=== PATIENT | male | born 1950 | race Caucasian/White ===

== ENCOUNTER 2020-03-24 16:09 | Inpatient (IN) | payer MEDICARE, OTHER ==
[~2020-03-24] VITALS: Ht 193 cm; Wt 72.4 kg
--- NOTE | 2020-03-24 16:23 | ED GI ---
General Stated Complaint: GI BLEED Source of Information: Patient, EMS Exam Limitations: No Limitations History of Present Illness Date Seen by Provider: Mar 24, 2020 Time Seen by Provider: 16:22 Initial Comments 69-year-old male presents with concerns for GI bleed. Patient has "been throwing up like a champ" since around 2 AM this morning. Patient was seen in from the longterm due to a black emesis. Patient himself denies any blood. Patient denies any black tarry stool. Patient has some diffuse mild abdominal pain. No reports of fevers chills cough, shortness of breath or other systemic complaints Allergies and Home Medications Allergies Coded Allergies: No Known Drug Allergies (Unverified , 03/24/20) Home Medications Amiodarone HCl 200 Mg Tablet, 200 MG PO DAILY, (Reported) Amlodipine Besylate 10 Mg Tablet, 10 MG PO DAILY, (Reported) Ascorbic Acid 500 Mg Tablet, 500 MG PO DAILY, (Reported) Aspirin 81 Mg Tab.chew, 81 MG PO BID, (Reported) Bisacodyl 10 Mg Supp.rect, 10 MG RC Q12H PRN for CONSTIPATION-1ST LINE, ( Reported) Diltiazem HCl 180 Mg Capsule.er, 180 MG PO DAILY, (Reported) Docusate Sodium 100 Mg Capsule, 100 MG PO BID, (Reported) Ferrous Sulfate 325 Mg Tablet, 325 MG PO BID, (Reported) Hydrocortisone Acetate 25 Mg Supp.rect, 25 MG RC Q12H PRN for HEMMORRHOID DISCOMFORT, (Reported) Insulin Aspart 100 Unit/1 Ml Susp, UNIT SQ ACHS, (Reported) 0-60= 0u initiate hypoglycemia protocol and notify PCP; 61-150= 0u 151-200= 4u 201-250= 6u 251-300= 8u 301-350 = 10u 351-400= 12u 401+ = call PCP Insulin Detemir 100 Unit/1 Ml Insuln.pen, 5 UNIT SQ BID, (Reported) L. Acidophilus/Bulgaricus 1 Each Tab.chew, 1 EACH PO BID, (Reported) Metoprolol Tartrate 50 Mg Tablet, 50 MG PO DAILY, (Reported) Mirtazapine 15 Mg Tablet, 15 MG PO HS, (Reported) Multivitamin 1 Each Tablet, 1 EACH PO DAILY, (Reported) Pantoprazole Sodium 40 Mg Tablet.dr, 40 MG PO DAILY, (Reported) Polyethylene Glycol 3350 17 Gm Powd.pack, 17 GM PO BID, (Reported) Polyethylene Glycol 3350 17 Gm Powd.pack, 17 GM PO DAILY PRN for CONSTIPATION- 1ST LINE, (Reported) Rivaroxaban 20 Mg Tablet, 20 MG PO DAILY, (Reported) Simvastatin 20 Mg Tablet, 20 MG PO HS, (Reported) Solifenacin Succinate 10 Mg Tablet, 10 MG PO HS, (Reported) Spironolactone 50 Mg Tablet, 50 MG PO DAILY, (Reported) Tamsulosin HCl 0.4 Mg Cap, 0.4 MG PO DAILY, (Reported) Tramadol HCl 50 Mg Tablet, 50 MG PO Q4H PRN for PAIN-MODERATE (5-7), (Reported) Venlafaxine HCl 75 Mg Cap.er.24h, 75 MG PO DAILY, (Reported) Zinc Amino Acid Chelate 50 Mg Tablet, 50 MG PO DAILY, (Reported) Patient Home Medication List Home Medication List Reviewed: Yes Review of Systems Review of Systems Constitutional: No chills, No fever EENTM: No Symptoms Reported Respiratory: Denies Cough, Denies Shortness of Air Cardiovascular: No Symptoms Reported Gastrointestinal: Abdominal Pain; Denies Constipated, Denies Diarrhea; Nausea; Denies Rectal Bleeding; Vomiting Genitourinary: No Symptoms Reported Musculoskeletal: no symptoms reported Skin: no symptoms reported Psychiatric/Neurological: No Symptoms Reported Endocrine: No Symptoms Reported Past Njzaria-Iwjvhe-Jithvb Hx Past Med/Social Hx: Reviewed Nursing Past Med/Soc Hx Physical Exam Vital Signs Vital Signs - First Documented 03/24/20 16:10 Temp 36.9 Pulse 71 Resp 18 B/P (MAP) 122/67 (85) Pulse Ox 97 O2 Delivery Room Air Capillary Refill : Height/Weight/BMI Height: '" Weight: lbs. oz. kg; BMI Method: General Appearance: WD/WN, no apparent distress Respiratory: lungs clear, normal breath sounds Cardiovascular: normal peripheral pulses, regular rate, rhythm Gastrointestinal: soft, tenderness (mild diffuse) Neurologic/Psychiatric: alert, normal mood/affect Skin: warm/dry Progress/Results/Core Measures Results/Orders Lab Results Laboratory Tests Test 03/24/20 16:16 Range/Units White Blood Count 10.8 4.3-11.0 10^3/uL Red Blood Count 3.48 L 4.30-5.52 10^6/uL Hemoglobin 10.2 L 13.3-17.7 g/dL Hematocrit 30 L 40-54 % Mean Corpuscular Volume 87 80-99 fL Mean Corpuscular Hemoglobin 29 25-34 pg Mean Corpuscular Hemoglobin Concent 34 32-36 g/dL Red Cell Distribution Width 14.2 10.0-14.5 % Platelet Count 236 130-400 10^3/uL Mean Platelet Volume 9.9 9.0-12.2 fL Immature Granulocyte % (Auto) 1 % Neutrophils (%) (Auto) 78 H 42-75 % Lymphocytes (%) (Auto) 12 12-44 % Monocytes (%) (Auto) 7 0-12 % Eosinophils (%) (Auto) 3 0-10 % Basophils (%) (Auto) 1 0-10 % Neutrophils # (Auto) 8.4 H 1.8-7.8 10^3/uL Lymphocytes # (Auto) 1.2 1.0-4.0 10^3/uL Monocytes # (Auto) 0.7 0.0-1.0 10^3/uL Eosinophils # (Auto) 0.3 0.0-0.3 10^3/uL Basophils # (Auto) 0.1 0.0-0.1 10^3/uL Immature Granulocyte # (Auto) 0.1 0.0-0.1 10^3/uL Sodium Level 137 135-145 MMOL/L Potassium Level 5.1 H 3.6-5.0 MMOL/L Chloride Level 100 98-107 MMOL/L Carbon Dioxide Level 28 21-32 MMOL/L Anion Gap 9 5-14 MMOL/L Blood Urea Nitrogen 47 H 7-18 MG/DL Creatinine 2.32 H 0.60-1.30 MG/DL Estimat Glomerular Filtration Rate 28 BUN/Creatinine Ratio 20 Glucose Level 134 H 70-105 MG/DL Calcium Level 9.2 8.5-10.1 MG/DL Corrected Calcium 9.6 8.5-10.1 MG/DL Total Bilirubin 0.3 0.1-1.0 MG/DL Aspartate Amino Transf (AST/SGOT) 13 5-34 U/L Alanine Aminotransferase (ALT/SGPT) 15 0-55 U/L Alkaline Phosphatase 121 40-136 U/L C-Reactive Protein High Sensitivity 0.88 H 0.00-0.50 MG/DL Total Protein 6.8 6.4-8.2 GM/DL Albumin 3.5 3.2-4.5 GM/DL Lipase 23 8-78 U/L My Orders Orders - MICHAEL BANEGAS DO Cbc With Automated Diff (03/24/20 16:23) Comprehensive Metabolic Panel (03/24/20 16:23) Hs C Reactive Protein (03/24/20 16:23) Lipase (03/24/20 16:23) Acute Abd Series (03/24/20 16:23) Ondansetron Injection (Zofran Injectio (03/24/20 16:30) Ed Iv/Invasive Line Start (03/24/20 16:23) Pantoprazole Injection (Protonix Injecti (03/24/20 16:30) Ed Iv/Invasive Line Start (03/24/20 17:05) Ns Iv 1000 Ml (Sodium Chloride 0.9%) (03/24/20 17:05) Medications Given in ED Vital Signs/I&O 03/24/20 16:10 Temp 36.9 Pulse 71 Resp 18 B/P (MAP) 122/67 (85) Pulse Ox 97 O2 Delivery Room Air 03/25/20 00:00 Intake Total 1000 ml Balance 1000 ml Progress Progress Note : Progress Note Patient did have an episode of vomiting while in the ER that was consistent with a coffee-ground emesis that was positive for blood. Discussed with Dr. Luna and Dr. Henderson. We will place patient in observation, hold his blood thinner, give him Protonix twice a day along with the stool regiment. Patient will be admitted in stable condition. Departure Communication (Admissions) Time/Spoke to Admitting Phy: 18:00 hold blood thinners, ppi bid, iv fluids Time/Spoke to Consulting Phy: 18:00 Impression Primary Impression: Constipation Qualified Codes: K59.00 - Constipation, unspecified Additional Impression: Hematemesis Qualified Codes: K92.0 - Hematemesis Disposition: ADMITTED INPATIENT Condition: Stable Admissions Decision to Admit Reason: Admit from ER (General) Decision to Admit/Date: Mar 24, 2020 Time/Decision to Admit Time: 18:00 BASSAMYOLIEAmi Ojeda DO Mar 24, 2020 16:22
[2020-03-24] MEDS ORDERED: ONDANSETRON 4 MG/2 ML (SDV) Z0FRAN IVP ONE (16:30)
[2020-03-24] MEDS ORDERED: PANTOPRAZOLE 40 MG (PROTONIX) VIAL IV ONE (16:30)
[2020-03-24 16:35] LABS: BASOPHILS # (AUTO) 0.1 10^3/uL (0.0-0.1); BASOPHILS % (AUTO) 1 % (0-10); EOSINOPHILS # (AUTO) 0.3 10^3/uL (0.0-0.3); EOSINOPHILS % (AUTO) 3 % (0-10); HEMATOCRIT 30 % (40-54); HEMOGLOBIN 10.2 g/dL (13.3-17.7); LYMPHOCYTES # (AUTO) 1.2 10^3/uL (1.0-4.0); LYMPHOCYTES % (AUTO) 12 % (12-44); MEAN CORPUSCULAR HEMOGLOBIN 29 pg (25-34); MEAN CORPUSCULAR HGB CONC 34 g/dL (32-36); MEAN CORPUSCULAR VOLUME 87 fL (80-99); MEAN PLATELET VOLUME 9.9 fL (9.0-12.2); MONOCYTES # (AUTO) 0.7 10^3/uL (0.0-1.0); MONOCYTES % (AUTO) 7 % (0-12); NEUTROPHILS # (AUTO) 8.4 10^3/uL (1.8-7.8); NEUTROPHILS % (AUTO) 78 % (42-75); PLATELET COUNT 236 10^3/uL (130-400); WHITE BLOOD COUNT 10.8 10^3/uL (4.3-11.0)
[2020-03-24 16:36] LABS: ALBUMIN 3.5 GM/DL (3.2-4.5); POTASSIUM 5.1 MMOL/L (3.6-5.0)
[2020-03-24 16:37] LABS: CALCIUM 9.2 MG/DL (8.5-10.1)
[2020-03-24 16:39] LABS: TOTAL PROTEIN 6.8 GM/DL (6.4-8.2)
[2020-03-24 16:40] LABS: BILIRUBIN,TOTAL 0.3 MG/DL (0.1-1.0)
[2020-03-24 16:42] LABS: CREATININE SERUM 2.32 MG/DL (0.60-1.30)
[2020-03-24] MEDS ORDERED: NS IV 1000 ML 1,000 ML IV SCH (17:05)
--- NOTE | 2020-03-24 17:15 | Diagnostic Imaging Report ---
INDICATION: Abdominal pain. COMPARISON: None available. TECHNIQUE: Three radiographs of the abdomen and chest dated March 24, 2020. FINDINGS: The cardiac silhouette is within normal limits in size. No significant pulmonary vascular congestion. The lungs are clear. No pleural effusion. No pneumothorax. No acute osseous abnormality within the chest. Significant amount of stool is identified throughout the colon, including extending into the rectal vault. No dilated loops of small bowel. No differential air-fluid levels. No free air. No acute osseous abnormality. IMPRESSION: Significant amount of stool throughout the colon extending into the rectal vault which may relate to constipation. No acute cardiopulmonary abnormality. Dictated by: Dictated on workstation # [id number]
--- NOTE | 2020-03-24 19:37 | NUR ---
FLORENCIO WILDE admitted to room 412-1, with an admitting diagnosis of constipation and hematemesis, on 03/24/20 from ED via cart, accompanied by staff.FLORENCIO WILDE introduced to surroundings, call light, bed controls, phone, TV, temperature control, lights, meal times, smoking policy, visitor policy, side rail policy, bathrooms and showers. Patient Rights given to patient in the handbook. FLORENCIO WILDE verbalizes understanding that [facility] is not responsible for the loss or damage to any personal effects or valuables that are kept in the patients possession during their hospitalization. The following Patient Care Plans were discussed with the patient. Patient verbalizes understanding, denies any questions or concerns at this time. FLORENCIO WILDE verbalizes understanding of Interdisciplinary Patient Education. Patient and/or family were informed about the Rapid Response Team and its purpose.
[2020-03-24] MEDS ORDERED: CATHETER FLUSH 10 ML SYR IV PRN (20:00)
[2020-03-24] MEDS ORDERED: MAGNESIUM CITRATE 300 ML BTL PO NR (20:00)
[2020-03-24] MEDS: NS IV 1000 ML 1,000 ML IV SCH (20:34)
[2020-03-24 20:37] VITALS: BP 131/75
--- NOTE | 2020-03-24 21:21 | NUR ---
2051-pt requested that this rn contact his cristina gilbert to inform her what the plan of care is, admitting diagnosis, & set up password this rn called who provided this rn with pt's name & prior to this rn providing information password:[email or web address] was set up, this rn provided admitting diagnosis, plan of care, & discussed visiting hours. she denies any other questions or concerns at this time.
[2020-03-24] MEDS ORDERED: SOLI10TA2 PO (22:20)
[2020-03-24] MEDS ORDERED: INSU100V16 SQ (22:20)
[2020-03-24] MEDS ORDERED: TMSL.4C PO (22:20)
[2020-03-24] MEDS ORDERED: MIRT15TA6 PO (22:20)
[2020-03-24] MEDS ORDERED: AMLO10TA7 PO (22:20)
[2020-03-24] MEDS ORDERED: SIMV20TA26 PO (22:20)
[2020-03-24] MEDS ORDERED: INSU100I29 SQ (22:20)
[2020-03-24] MEDS ORDERED: TRM50T PO (22:20)
[2020-03-24] MEDS ORDERED: BISA10SU8 RC (22:20)
[2020-03-24] MEDS ORDERED: HYDR25SU28 RC (22:20)
[2020-03-24] MEDS ORDERED: ACID1TAB5 PO (22:20)
[2020-03-24] MEDS ORDERED: PANT40TA52 PO (22:20)
[2020-03-24] MEDS ORDERED: AMIO200T4 PO (22:20)
[2020-03-24] MEDS ORDERED: FERR325T18 PO (22:20)
[2020-03-24] MEDS ORDERED: ASCO500T7 PO (22:20)
[2020-03-24] MEDS ORDERED: ZINC50TA51 PO (22:20)
[2020-03-24] MEDS ORDERED: SPIR50TA4 PO (22:20)
[2020-03-24] MEDS ORDERED: DILT180C82 PO (22:20)
[2020-03-24] MEDS ORDERED: ASPI-999 PO (22:20)
[2020-03-24] MEDS ORDERED: DOCU100C37 PO (22:20)
[2020-03-24] MEDS ORDERED: POLY17PO6 PO ×2 (22:20)
[2020-03-24] MEDS ORDERED: VENL75CA93 PO (22:20)
[2020-03-24] MEDS ORDERED: RIVA20TA PO (22:20)
[2020-03-24] MEDS ORDERED: MULT-1136 PO (22:20)
[2020-03-24] MEDS ORDERED: METO50TA15 PO (22:20)
[2020-03-24] MEDS: PANTOPRAZOLE 40 MG (PROTONIX) VIAL IV SCH (22:58)
[2020-03-25 00:16] VITALS: BP 104/57
[2020-03-25] MEDS: NS IV 1000 ML 1,000 ML IV SCH ×4 (03:16→23:32)
[2020-03-25 03:59] VITALS: BP 113/57
[2020-03-25 06:24] LABS: BASOPHILS % (AUTO) 0 % (0-10); EOSINOPHILS # (AUTO) 0.3 10^3/uL (0.0-0.3); EOSINOPHILS % (AUTO) 3 % (0-10); HEMATOCRIT 25 % (40-54); HEMOGLOBIN 8.5 g/dL (13.3-17.7); LYMPHOCYTES # (AUTO) 1.5 10^3/uL (1.0-4.0); LYMPHOCYTES % (AUTO) 16 % (12-44); MEAN CORPUSCULAR HEMOGLOBIN 30 pg (25-34); MEAN CORPUSCULAR HGB CONC 34 g/dL (32-36); MEAN CORPUSCULAR VOLUME 87 fL (80-99); MEAN PLATELET VOLUME 10.1 fL (9.0-12.2); MONOCYTES # (AUTO) 0.5 10^3/uL (0.0-1.0); MONOCYTES % (AUTO) 6 % (0-12); NEUTROPHILS # (AUTO) 6.8 10^3/uL (1.8-7.8); NEUTROPHILS % (AUTO) 75 % (42-75); PLATELET COUNT 200 10^3/uL (130-400); WHITE BLOOD COUNT 9.1 10^3/uL (4.3-11.0)
[2020-03-25 06:25] LABS: POTASSIUM 4.9 MMOL/L (3.6-5.0)
[2020-03-25 06:27] LABS: CALCIUM 8.4 MG/DL (8.5-10.1)
[2020-03-25 06:28] LABS: TOTAL PROTEIN 5.8 GM/DL (6.4-8.2)
[2020-03-25 06:30] LABS: BILIRUBIN,TOTAL 0.2 MG/DL (0.1-1.0)
[2020-03-25 06:31] LABS: CREATININE SERUM 1.82 MG/DL (0.60-1.30)
[2020-03-25 08:00] VITALS: BP 124/67
[2020-03-25] MEDS: PANTOPRAZOLE 40 MG (PROTONIX) VIAL IV SCH ×2 (08:50→20:22)
--- NOTE | 2020-03-25 10:56 | NUR ---
CM/SS visited with patient for discharge planning. The patient was pleasant and willing to discuss discharge planning. He reports that he is feeling better today and does not have any vomiting. Plan: Patient will return to [facility] at time of discharge. Home: The patient reports that he lives at home with his Renee. This CM/SS believes patient may have confusion. VAIBHAV Aguila verified that patient has been transferred here from [facility]. The patient states that prior to this hospital stay, he was using a wheelchair to get around. Patient has 3 stairs leading up to house. He states he does not have a ramp but was able to use rails to help assist him up the stairs. His home is a 2 level home but the second floor is dedicated to his 's crafts. Equipment: Patient has a wheelchair and shower chair. Denies any additional equipment at this time. Patient states he has had to use a wheelchair since his 2nd stroke. Patient has had 3 strokes. Home Health/Caregivers: None. Patient does not have a paid caregiver at home but states his was helping him with his daily living activities. CM/SS will continue to follow for discharge planning.
[2020-03-25] MEDS ORDERED: ZINC50TA58 PO (11:11)
[2020-03-25] MEDS ORDERED: MULT-1112 PO (11:11)
[2020-03-25] MEDS ORDERED: ACID1TAB5 PO (11:11)
--- NOTE | 2020-03-25 11:49 | NUR ---
PALLIATIVE CARE RN went in to talk with patient. He is pleasant and we were able to have a conversation. He reports feeling better and having no more vomiting as well as having had a great bowel movement. During conversation with him I took the opportunity to ask him about his RBKA. It was not mentioned in ED physician charting nor in nursing assessment on admission that I could find. Patient states that he had surgery in December. I have asked for the RN Jose to assess wound and make sure it is healing well as the bandage appeared to have drainage on it. She has since reported that the incision is mostly healed without drainage and thinks the yellow on the dressing was urine. Patient has Hx. of CVA, and DM. He comes to us from [facility] and previous to that was at [facility]. Unsure where he was previous to that or for his surgery.
[2020-03-25 12:00] VITALS: BP 143/73
--- NOTE | 2020-03-25 12:01 | NUR ---
MED REC WAS ENTERED USING THE MEDICATION REVIEW REPORT FROM [employer]
--- NOTE | 2020-03-25 13:44 | NUR ---
"RD ASSESSMENT PMHx: afib; GERD; amputation; DM PT INTERACTION: Pt was awake and pleasant during nutrition assessment. Pt states current appetite is good. Note pt is currently NPO, per chart review. Pt states following a regular diet at home, and has no issues with chewing/swallowing food. Pt states some recent issues with nausea, vomiting, constipation, and diarrhea. Note recent episode of emesis per chart review. Note last BM was 03/25, and pt not currently on bowel regimen per chart review. Pt states recent wt loss d/t recent amputation. Note unable to determine recent wt hx, per chart review. Pt states trying keep good control of DM at this time. Note unable to determine recent HbA1c, per chart review. ABNORMAL NUTRITION-RELATED LAB VALUES LOW: Ca 8.4; Pro 5.8; alb 3.0 HIGH: BUN 42; cr 1.82; glu 117 Est. kcal needs: 2175 kcal | 30 kcal/kg Est. Pro needs: 72 g Pro | 1.0 g Pro/kg PES STATEMENT: Inadequate oral intake (NI-2.1) related to nausea | vomiting | constipation | diarrhea as evidenced by pt interview INTERVENTION: Note pt currently NPO. Would recommend diet advancement to consistent CHO diet, as medically able and as tolerated. Did not offer diet education on DM management at this time. Will attempt to offer prior to discharge. Will continue to follow and reassess as pt needs, intake, and status change. Melissa Nova, MS RD LD"
--- NOTE | 2020-03-25 14:31 | History & Physical-Hospitalist ---
History of Present Illness HPI/Chief Complaint Rangel Maldonado is a 69-year-old male with past medical history of hypertension, diabetes, hyperlipidemia, GERD, atrial fibrillation, BPH, CKD, who presented with coffee-ground emesis. 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 He reports that he had nausea and vomiting with dark emesis. He denies feeling lightheaded or dizzy. He denies any fevers or chills. He denies any shortness of breath or cough. He denies any chest pain. He denies any abdominal pain. He denies any diarrhea. His any melena or hematochezia. Source: patient Exam Limitations: no limitations Date Seen 03/25/20 Time Seen by a Provider: 11:10 Attending Physician Enzo Haskins MD PCP Alex Etienne DO Referring Physician Date of Admission Mar 24, 2020 at 18:26 Home Medications & Allergies Home Medications Reviewed patient Home Medication Reconciliation performed by pharmacy medication reconciliations geoscience laboratory technician and/or nursing. Patients Allergies have been reviewed. Allergies Allergies Coded Allergies No Known Drug Allergies (Unverified03/24/20) Past Jhjdohl-Lbobhk-Kutowk Hx Past Med/Social Hx: Reviewed Nursing Past Med/Soc Hx Patient Social History Alcohol Use: Denies Use Recreational Drug Use: No Smoking Status: Never a Smoker 2nd Hand Smoke Exposure: No Recent Foreign Travel: No Contact w/other who traveled: No Recent Hopitalizations: No Recent Infectious Disease Expo: No Seasonal Allergies Seasonal Allergies: No Past Medical History Surgeries: Adenoidectomy, Tonsillectomy, Vasectomy Cardiac: Atrial Fibrillation Gastrointestinal: Gastroesophageal Reflux Musculoskeletal: Amputee Endocrine: Diabetes, Insulin dep Are Your Blood Sugars Over 250: No Psychosocial: Anxiety History of Blood Disorders: Yes (Anemia ) Family History Alzheimer's disease 19 FATHER, Onset:60 years & older Dementia 19 FATHER, Onset:60 years & older Diabetes mellitus 19 FATHER, Onset:50's - 60 Review of Systems Constitutional: no symptoms reported EENTM: no symptoms reported Respiratory: no symptoms reported Cardiovascular: no symptoms reported Gastrointestinal: hematemesis, nausea, vomiting Genitourinary: no symptoms reported Musculoskeletal: no symptoms reported Skin: no symptoms reported Psychiatric/Neurological: No Symptoms Reported Physical Exam Physical Exam Vital Signs Vital Signs - First Documented 9/29/20 16:10 Temp 36.9 Pulse 71 Resp 18 B/P (MAP) 122/67 (85) Pulse Ox 97 O2 Delivery Room Air Capillary Refill : Less Than 3 Seconds Height, Weight, BMI Height: '" Weight: lbs. oz. kg; 19.43 BMI Method: General Appearance: No Apparent Distress, WD/WN HEENT: PERRL/EOMI, Pharynx Normal Neck: Normal Inspection, Supple Respiratory: Lungs Clear, Normal Breath Sounds, No Respiratory Distress Cardiovascular: Regular Rate, Rhythm, No Edema, No Murmur Gastrointestinal: Normal Bowel Sounds, Non Tender, Soft Extremity: Non Tender, No Pedal Edema, Other (right BKA with bandage in place) Neurologic/Psychiatric: Alert, No Motor/Sensory Deficits, Normal Mood/Affect, Disoriented Skin: Normal Color, Warm/Dry Lymphatic: No Adenopathy Results Results/Procedures Labs Laboratory Tests 03/24/20 16:16 03/25/20 05:23 Patient resulted labs reviewed. Imaging: Reviewed Imaging Report Assessment/Plan Admission Diagnosis upper GI bleeding Admission Status: Inpatient Order (span 2 midnights) Reason for Inpatient Admission: GI bleed requiring IV medications and possible surgical intervention Assessment and Plan Upper GI bleeding Hematemesis Chronic anticoagulation no hematemesis since arrival chronically on Xarelto, held Hemoglobin dropped from 10.2 on arrival to 8.5 this morning started on IV fluids IV PPI twice a day Gen. surgery consulted, appreciate assistance Clear liquid diet today, nothing by mouth after midnight for possible procedure Repeat hemoglobin tomorrow morning or sooner with ongoing bleeding GWENDOLYN on CKD unknown baseline creatinine 2.32 on arrival, down to 1.82 this morning Continue IV fluids T2DM Recent BKA hold home meds sliding scale insulin consult wound care consult PT/OT HTN HLD GERD BPH resume home meds when able Diagnosis/Problems Diagnosis/Problems (1) Hematemesis Status: Acute Qualifiers: Nausea presence: with nausea Qualified Codes: K92.0 - Hematemesis (2) Upper GI bleeding Status: Acute (3) Chronic anticoagulation Status: Chronic (4) Acute kidney injury superimposed on chronic kidney disease Status: Acute (5) HTN (hypertension) Status: Chronic (6) T2DM (type 2 diabetes mellitus) Status: Chronic (7) HLD (hyperlipidemia) Status: Chronic (8) GERD (gastroesophageal reflux disease) Status: Chronic (9) Afib Status: Chronic (10) BPH (benign prostatic hyperplasia) Status: Chronic Clinical Quality Measures DVT/VTE Risk/Contraindication: Risk Factor Score Per Nursin RFS Level Per Nursing on Admit: 4+=Very High Other: hold blood thinners ENZO HASKINS MD Mar 25, 2020 14:31
--- NOTE | 2020-03-25 15:21 | Physical Therapy Evaluation ---
PT Evaluation-General Medical Diagnosis Admission Date Mar 24, 2020 at 18:26 Medical Diagnosis: GI bleed Onset Date: Mar 24, 2020 Therapy Diagnosis Therapy Diagnosis: Impaired mobility and strength Precautions Precautions/Isolations: Fall Prevention, Standard Precautions Weight Bear Status Right Lower Extremity: Right Non Weight Bearing (BKA) Left Lower Extremity: Left Full Weight Bearing Referral Physician: Cheryl Reason for Referral: Evaluation/Treatment Medical History Additional Medical History Past Medical History Surgeries: Adenoidectomy, Tonsillectomy, Vasectomy Cardiac: Atrial Fibrillation Gastrointestinal: Gastroesophageal Reflux Musculoskeletal: Amputee Endocrine: Diabetes, Insulin dep Are Your Blood Sugars Over 250: No Psychosocial: Anxiety History of Blood Disorders: Yes (Anemia ) Reviewed History: Yes Social History Home: Multilevel Current Living Status: Spouse Entry Into Home: Stairs Without Railing PT Steps Into Home: 3 PT Steps Inside Home: 12 Pt does not need access to upstairs. Pt reports a railing will be installed on the steps into his house, and a possible ramp. Prior Prior Level of Function SCALE: Activities may be completed with or without assistive devices. 7-Wnnmhfvqxf-mojpyut completes the activity by him/herself with no assistance from a helper. 5-Set-up or Clean-up Assistance-helper sets up or cleans up; patient completes activity. Gut[place]berg assists only prior to or following the activity. 4-Supervision or Touching Assistance-helper provides verbal cues and/or touching/steadying and/or contact guard assistance as patient completes activity. Assistance may be provided throughout the activity or intermittently. 3-Partial/Moderate Assistance-helper does LESS THAN HALF the effort. Guttenberg lifts, holds or supports trunk or limbs, but provides less than half the effort. 2-Substantial/Maximal Assistance-helper does MORE THAN HALF the effort. Guttenberg lifts or holds trunk or limbs and provides more than half the effort. 5-Kyhnstjia-uodfdf does ALL the effort. Patient does none of the effort to complete the activity. Or, the assistance of 2 or more helpers is required for the patient to complete the activity. If activity was not attempted, code reason: 7-Patient Refused. 9-Not Applicable-not attempted and the patient did not perform the activity before the current illness, exacerbation or injury. 10-Not Attempted due to Environmental Limitations-(lack of equipment, weather restraints, etc.). 88-Not Attempted due to Medical Conditions or Safety Concerns. Bed Mobility: 6 Transfers (B,C,W/C): 4 Gait: 4 (before BKA) Stairs: 4 (before BKA) Indoor Mobility (Ambulation): Needed Some Help Stairs: Needed Some Help Prior Devices Use: Other-see list below (Cane) PT Evaluation-Current Subjective Pt presents laying supine in bed. Pt agrees to PT. No complaints of pain. Pt/Family Goals Return to home with . Objective Patient Orientation: Person, Place, Time, Eyes Open, Situation Attachments: IV ROM/Strength ROM Lower Extremities WFL Strength Lower Extremities R Hip Flex: 4/5 L Hip Flex: 4+/5 R Knee flex/ext 4+/5 L Knee flex/ext 5/5 Sensory Hearing: Functional Sensation Right Lower Extremit: Intact Sensation Left Lower Extremity: Impaired Sensation Lower Extremities RLE Sensation intact to light touch through residual limb LLE Sensation intact to light touch L2-S2 but sensation is dull L4-S1 Transfers Roll Left to Right (QC): 6 Lying to Sitting/Side of Bed(Q: 6 Sit to Stand (QC): 2 Chair/Csp-cv-Qtdzq Xfer(QC): 2 Pt initiated qxl-up-izwxe but was not able to generate enough momentum to stand on one leg. Pt received assistance from 2 therapists to [id number] to stabilize pt upright and guide bottom into chair.. Gait Does the Patient Walk?: No and Walking Goal NOT indicated Balance Standing Static: Poor Standing Dynamic: Fair Assessment/Needs Pt demonstrated independence with bed mobility. Pt is not able to ambulate as he is too weak to lift LLE off ground with UE walker support; pt required max assist to stand-pivot transfer to chair with walker. Pt has positive attitude on his condition and healing process. Rehab Potential: Fair PT Coronary Clinical Specialist Goals Coronary Clinical Specialist Goals PT Long-Term Goals Time Frame: Apr 01, 2020 Roll Left & Right (QC): 6 Sit to Lying (QC): 6 Lying-Sitting on Side/Bed(QC): 6 Sit to Stand (QC): 4 Chair/Ogn-cm-Douvy Xfer(QC): 4 Does the Patient Walk: No and Walking Goal NOT indicated Does the Pt use WC or Scooter?: Yes Wheel 50 feet with 2 turns (QC: 4 Type: Manual Wheel 150 feet: 4 Type: Manual PT Plan Problem List Problem List: Activity Tolerance, Functional Strength, Safety, Balance, Trans edna, Bed Mobility, ROM Treatment/Plan Treatment Plan: Continue Plan of Care Treatment Plan: Bed Mobility, Education, Functional Activity Khang, Functional Strength, Safety, Therapeutic Exercise, Transfers Treatment Duration: Apr 01, 2020 Frequency: 6 times per week Estimated Hrs Per Day: .25 hour per day Patient and/or Family Agrees t: Yes Safety Risks/Education Patient Education: Transfer Techniques, Correct Positioning, Safety Issues Teaching Recipient: Patient Teaching Methods: Demonstration, Discussion Response to Teaching: Reinforcement Needed Discharge Recommendations Plan Pt will work on transfers, therapeutic exercises, balance, and functional activities. Therapy Discharge Recommendati: Other, See Comments (NH) Time/GCodes Time In: 1450 Time Out: 1312 Total Billed Treatment Time: 22 Total Billed Treatment 1 visit MICHELLE Valdovinos' DIMITRI QUESADA PT Mar 25, 2020 15:21
--- NOTE | 2020-03-25 15:36 | Occupational Therapy Eval ---
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 0-Fhdsppfwiv-upmkloj completes the activity by him/herself with no assistance from a helper. 5-Set-up or Clean-up Assistance-helper sets up or cleans up; patient completes activity. Wake assists only prior to or following the activity. 4-Supervision or Touching Assistance-helper provides verbal cues and/or touching/steadying and/or contact guard assistance as patient completes activi ty. Assistance may be provided throughout the activity or intermittently. 3-Partial/Moderate Assistance-helper does LESS THAN HALF the effort. Wake lifts, holds or supports trunk or limbs, but provides less than half the effort. 2-Substantial/Maximal Assistance-helper does MORE THAN HALF the effort. Wake lifts or holds trunk or limbs and provides more than half the effort. 6-Kqegcuxlk-zuncba does ALL the effort. Patient does none of the effort to complete the activity. Or, the assistance of 2 or more helpers is required for the patient to complete the activity. If activity was not attempted, code reason: 7-Patient Refused. 9-Not Applicable-not attempted and the patient did not perform the activity before the current illness, exacerbation or injury. 10-Not Attempted due to Environmental Limitations-(lack of equipment, weather restraints, etc.). 88-Not Attempted due to Medical Conditions or Safety Concerns. ADL PLOF Comments Pt indicates he is currently at [facility], trying to get stronger to return home with his . At [facility], pt lives with his in a multistory house, he stays on the first floor. He indicates he was independent with all ADLs and functional mobility with a cane. Self Care: Independent Functional Cognition: Independent OT Current Status Subjective Pt laying in bed, agreeable to OT. Pt does not verbalize pain rating Mental Status/Objective Patient Orientation: Person, Place, Time, Situation Attachments: IV Current Hand Dominance: Right Upper Extremity ROM RUE shoulder flexion ~90 degrees, LUE shoulder flexion ~130 degrees. Pt able to touch back of head with hands. Upper Extremity Coordination Decreased RUE Upper Extremity Sensation Tingling/numbness R hand Upper Extremity Strength RUE 3-/5, LUE 3+/5 ADL-Treatment Eating (QC): 6 On/Off Footwear (QC): 1 Other Treatments Pt laying in bed, transferred supine to sit EOB with SBA. Pt attempted to don LLE gripper sock, but indicates difficulty. Pt reports having multiple strokes in the past, with weakness/decreased coordination on R side of body. OT assisted pt with donning LLE gripper sock. Pt then stood at FWW, assist x2. Pt attempted to take step but had difficulty, unable to step forward. Pt sat back on bed, recliner brought closer to pt. Pt then stood at FWW, completing SPT with assist x2 towards L side to recliner. Pt participated in UE screen. Post OT tx, pt seated in recliner, call light in reach and all needs met, LEs elevated. Education OT Patient Education: Correct positioning, Energy conservation, Modified ADL techniques, Progress toward Goal/Update tx plan, Purpose of tx/functional activities, Safety issues, Transfer techniques Teaching Recipient: Patient Teaching Methods: Discussion Response to Teaching: Verbalize Understanding OT Senior Care Goals Beautician Apprentice Goals Time Frame: Apr 08, 2020 Eating (QC): 6 Oral Hygiene (QC): 6 Toileting Hygiene (QC): 4 Shower/Bathe Self (QC): 4 Upper Body Dressing (QC): 5 Lower Body Dressing (QC): 4 On/Off Footwear (QC): 4 Additional Goals: 1-Demonstrate ADL Tasks, 2-Verbalize Understanding, 3- ImproveStrength/Khang 1=Demonstrate adherence to instructed precautions during ADL tasks. 2=Patient will verbalize/demonstrate understanding of assistive devices/modifications for ADL. 3=Patient will improve strength/tolerance for activity to enable patient to perform ADL's. OT Education/Plan Problem List/Assessment Assessment: Decreased Activ Tolerance, Decreased UE Strength, Impaired Funct Balance, Impaired I ADL's, Impaired Self-Care Skills, Restricted Funct UE ROM Discharge Recommendations Plan/Recommendations: Continue POC Comment discharge location and equipment recommendations to be determined Treatment Plan/Plan of Care Treatment,Training & Education: Yes Patient would benefit from OT for education, treatment and training to promote independence in ADL's, mobility, safety and/or upper extremity function for ADL's. Plan of Care: ADL Retraining, Functional Mobility, UE Funct Exercise/Act, UE Neuromus Re-Ed/Coord, W/C Management Training Treatment Duration: Apr 08, 2020 Frequency: 5 times per week Estimated Hrs Per Day: .25 hour per day Rehab Potential: Fair Time/GCodes Start Time: 14:53 Stop Time: 13:12 Total Time Billed (hr/min): 19 Billed Treatment Time 1, SANDI COVARRUBIAS OT Mar 25, 2020 15:36
[2020-03-25 15:56] VITALS: BP 148/74
--- NOTE | 2020-03-25 18:10 | Consultation - Surgery ---
ARUNA HOPE MED STUDENT 03/25/201809: History of Present Illness History of Present Illness Patient Consulted On(rosalino/time) 03/24/20 20:00 Date Seen by Provider: Mar 25, 2020 Time Seen by Provider: 06:50 Reason for Visit: hematemesis, constipation History of Present Illness Rangel is a 69 yo M with hx of right below knee amputation 3 weeks ago who presents with constipation and hematemesis. 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 Montero in [place]. He has been in rehab at [facility] since. The patient complains of worsening constipation over the past 3 weeks, stating he had 6 days without a bowel movement prior to admission. He states he had rectal "pressure pain" at that time but denied abdominal pain and denied bloating. The pt denied bloody or dark stools aside from 1 episode of bright red blood in the stool when straining to pass a hard bowel movement 2 weeks ago. He reports nausea and vomiting beginning at 2 am on 03/24. Abdominal series in the ER showed a large amount of stool in the colon, and the pt had coffee-ground emesis in the ER. The patient states he has passed 2 non-bloody brown bowel movements since being hospitalized and on laxatives. He denies fever, chills, current abdominal pain, rectal pain, bloating, nausea, CP, SOB. Per RN no vomiting overnight. Allergies and Home Medications Allergies Coded Allergies: No Known Drug Allergies (Unverified , 03/24/20) Home Medications Amiodarone HCl 200 Mg Tablet, 200 MG PO DAILY, (Reported) HOLD MEDICATION IS BP <100/60 OR PULSE <60 Amlodipine Besylate 10 Mg Tablet, 10 MG PO DAILY, (Reported) HOLD MEDICATION IS BP <100/60 OR PULSE <60 Ascorbic Acid 500 Mg Tablet, 500 MG PO DAILY, (Reported) Aspirin 81 Mg Tab.chew, 81 MG PO BID, (Reported) Bisacodyl 10 Mg Supp.rect, 10 MG RC Q12H PRN for CONSTIPATION-4TH LINE, (Reported) Diltiazem HCl 180 Mg Capsule.er, 180 MG PO DAILY, (Reported) Docusate Sodium 100 Mg Capsule, 100 MG PO BID, (Reported) Ferrous Sulfate 325 Mg Tablet, 325 MG PO BID, (Reported) Hydrocortisone Acetate 25 Mg Supp.rect, 25 MG RC Q12H PRN for HEMMORRHOID DISCOMFORT, (Reported) Insulin Aspart 100 Unit/1 Ml Susp, UNIT SQ ACHS, (Reported) 0-60= 0u initiate hypoglycemia protocol and notify PCP; 61-150= 0u 151-200= 4u 201-250= 6u 251-300= 8u 301-350 = 10u 351-400= 12u 401+ = call PCP Insulin Detemir 100 Unit/1 Ml Insuln.pen, 5 UNIT SQ BID, (Reported) L. Acidophilus/Bulgaricus 1 Each Tab.chew, 1 EACH PO BID, (Reported) Metoprolol Tartrate 50 Mg Tablet, 50 MG PO DAILY, (Reported) HOLD MEDICATION IS BP <100/60 OR PULSE <60 Mirtazapine 15 Mg Tablet, 15 MG PO HS, (Reported) Multivit-Min/Iron/Folic/Vit K1 1 Each Tab.chew, 1 EACH PO DAILY, (Reported) Pantoprazole Sodium 40 Mg Tablet.dr, 40 MG PO DAILY, (Reported) Polyethylene Glycol 3350 17 Gm Powd.pack, 17 GM PO BID, (Reported) Polyethylene Glycol 3350 17 Gm Powd.pack, 17 GM PO DAILY PRN for CONSTIPATION- 1ST LINE, (Reported) Rivaroxaban 20 Mg Tablet, 20 MG PO DAILY, (Reported) Simvastatin 20 Mg Tablet, 20 MG PO HS, (Reported) Solifenacin Succinate 10 Mg Tablet, 10 MG PO HS, (Reported) Spironolactone 50 Mg Tablet, 50 MG PO DAILY, (Reported) Tamsulosin HCl 0.4 Mg Cap, 0.4 MG PO 1600, (Reported) Tramadol HCl 50 Mg Tablet, 50 MG PO Q4H PRN for PAIN-MODERATE (5-7), (Reported) Venlafaxine HCl 75 Mg Cap.er.24h, 75 MG PO DAILY, (Reported) Zinc 50 Mg Tablet, 50 MG PO DAILY, (Reported) Past Lsfifzp-Zrkylk-Xydmow Hx Patient Social History Alcohol Use: Denies Use Recreational Drug Use: Yes Drug of Choice: marijuana (occasional) Smoking Status: Never a Smoker 2nd Hand Smoke Exposure: No Recent Foreign Travel: No Contact w/Someone Who Travel: No Recent Infectious Disease Expo: No Recent Hopitalizations: No Seasonal Allergies Seasonal Allergies: No Surgeries History of Surgeries: Yes Surgeries: Adenoidectomy, Tonsillectomy, Vasectomy Cardiovascular History of Cardiac Disorders: Yes Cardiac Disorders: Atrial Fibrillation Gastrointestinal History of Gastrointestinal Di: Yes Gastrointestinal Disorders: Gastroesophageal Reflux Musculoskeletal History of Musculoskeletal Dis: Yes Musculoskeletal Disorders: Amputee Endocrine History of Endocrine Disorders: Yes Endocrine Disorders: Diabetes, Insulin dep HEENT History of HEENT Disorders: No Cancer History of Cancer: No Psychosocial History of Psychiatric Problem: Yes Behavioral Health Disorders: Anxiety Blood Transfusions History of Blood Disorders: Yes (Anemia ) Family Medical History Family Medial History: Alzheimer's disease 19 FATHER, Onset:60 years & older Dementia 19 FATHER, Onset:60 years & older Diabetes mellitus 19 FATHER, Onset:50's - 60 Review of Systems-General Constitutional: No chills, No diaphoresis EENTM: No ear pain, No blurred vision, No double vision Respiratory: No cough, No short of breath Cardiovascular: No chest pain, No edema Gastrointestinal: No abdominal pain; constipation (prior to admission. states has now resolved.), nausea (prior to admission. states has now resolved.), vomiting (coffee-colored prior to admission. states has now resolved.) Genitourinary: No discharge, No hematuria Musculoskeletal: No gout; other (right BKA) Skin: No change in color, No change in hair/nails Psychiatric/Neurological: Denies Anxiety, Denies Depressed All Other Systems Reviewed Negative Unless Noted: Yes Physical Exam-General Problems Physical Exam Vital Signs Vital Signs - First Documented 03/24/20 16:10 Temp 36.9 Pulse 71 Resp 18 B/P (MAP) 122/67 (85) Pulse Ox 97 O2 Delivery Room Air Capillary Refill : Less Than 3 Seconds General Appearance: no apparent distress, other (chronically ill appearing) HEENT: PERRL/EOMI Neck: non-tender, full range of motion Respiratory: lungs clear, normal breath sounds, no respiratory distress, no accessory muscle use Cardiovascular: regular rate, rhythm, no edema, no JVD, no murmur Gastrointestinal: non tender, soft, no organomegaly, no pulsatile mass Extremities: normal range of motion, no pedal edema (no edema on left. Right BKA.), other (right BKA with dressing in place. ) Neurologic/Psychiatric: alert, normal mood/affect Skin: normal color, warm/dry Lymphatic: no adenopathy Data Review Labs Laboratory Tests 03/25/20 05:23: White Blood Count 9.1, Red Blood Count 2.86L, Hemoglobin 8.5L, Hematocrit 25L, Mean Corpuscular Volume 87, Mean Corpuscular Hemoglobin 30, Mean Corpuscular Hemoglobin Concent 34, Red Cell Distribution Width 14.5, Platelet Count 200, Mean Platelet Volume 10.1, Immature Granulocyte % (Auto) 0, Neutrophils (%) (Auto) 75, Lymphocytes (%) (Auto) 16, Monocytes (%) (Auto) 6, Eosinophils (%) (Auto) 3, Basophils (%) (Auto) 0, Neutrophils # (Auto) 6.8, Lymphocytes # (Auto) 1.5, Monocytes # (Auto) 0.5, Eosinophils # (Auto) 0.3, Basophils # (Auto) 0.0, Immature Granulocyte # (Auto) 0.0, Sodium Level 139, Potassium Level 4.9, Chloride Level 105, Carbon Dioxide Level 25, Anion Gap 9, Blood Urea Nitrogen 42H, Creatinine 1.82H, Estimat Glomerular Filtration Rate 37, BUN/Creatinine Ratio 23, Glucose Level 117H, Calcium Level 8.4L, Corrected Calcium 9.2, Total Bilirubin 0.2, Aspartate Amino Transf (AST/SGOT) 15, Alanine Aminotransferase (ALT/SGPT) 13, Alkaline Phosphatase 109, Total Protein 5.8L, Albumin 3.0L Assessment/Plan Assessment/Plan Admission Diagonsis hematemesis constipation Assessment/Plan hematemesis constipation prior CVA on Eliquis diabetes mellitus hx right BKA continue laxatives, current treatment symptoms improved with bms start clear liquid diet monitor labs, especially HGB conservative treatment plan for endoscopy outpatient unless more urgent action required Clinical Quality Measures DVT/VTE Risk/Contraindication: Risk Factor Score Per Nursin RFS Level Per Nursing on Admit: 4+=Very High Other: hold blood thinners CAMI HENDERSON DO 03/25/20 2016: History of Present Illness History of Present Illness History of Present Illness Consult requested for hematemesis constipation. Patient is a 69-year-old male with recent below-knee amputation. Patient had amputation due to wet gangrene he states. Patient has been in rehabilitation trying to get stronger. Patient over the last 3 weeks has had worsening constipation has not had a bowel movement for the last 6 days. He is felt a lot of pressure and felt like he is getting backed up. Patient states he has had an episode of bright red blood per rectum with hard bowel movement but since being in the hospital he has had a couple bowel movements that are normal color and nonbloody. Patient states that yesterday he was having coffee-ground emesis due to being backed up he states. Patient states that the laxatives he took helped him significantly. Now he is not having any nausea like he was having before. He has not had any further emesis. Patient is tolerating clear liquids. His hemoglobin has dropped. Patient is on anticoagulation which is on hold. Patient with no other complaints at this time. Denies any nausea vomiting fever sweats chills shortness of breath or chest pain at this time. He had abdominal x-rays demonstrating significant stool load. Allergies and Home Medications Allergies Coded Allergies: No Known Drug Allergies (Unverified , 03/24/20) Home Medications Amiodarone HCl 200 Mg Tablet, 200 MG PO DAILY, (Reported) HOLD MEDICATION IS BP <100/60 OR PULSE <60 Amlodipine Besylate 10 Mg Tablet, 10 MG PO DAILY, (Reported) HOLD MEDICATION IS BP <100/60 OR PULSE <60 Ascorbic Acid 500 Mg Tablet, 500 MG PO DAILY, (Reported) Aspirin 81 Mg Tab.chew, 81 MG PO BID, (Reported) Bisacodyl 10 Mg Supp.rect, 10 MG RC Q12H PRN for CONSTIPATION-4TH LINE, (Reported) Diltiazem HCl 180 Mg Capsule.er, 180 MG PO DAILY, (Reported) Docusate Sodium 100 Mg Capsule, 100 MG PO BID, (Reported) Ferrous Sulfate 325 Mg Tablet, 325 MG PO BID, (Reported) Hydrocortisone Acetate 25 Mg Supp.rect, 25 MG RC Q12H PRN for HEMMORRHOID DISCOMFORT, (Reported) Insulin Aspart 100 Unit/1 Ml Susp, UNIT SQ ACHS, (Reported) 0-60= 0u initiate hypoglycemia protocol and notify PCP; 61-150= 0u 151-200= 4u 201-250= 6u 251-300= 8u 301-350 = 10u 351-400= 12u 401+ = call PCP Insulin Detemir 100 Unit/1 Ml Insuln.pen, 5 UNIT SQ BID, (Reported) L. Acidophilus/Bulgaricus 1 Each Tab.chew, 1 EACH PO BID, (Reported) Metoprolol Tartrate 50 Mg Tablet, 50 MG PO DAILY, (Reported) HOLD MEDICATION IS BP <100/60 OR PULSE <60 Mirtazapine 15 Mg Tablet, 15 MG PO HS, (Reported) Multivit-Min/Iron/Folic/Vit K1 1 Each Tab.chew, 1 EACH PO DAILY, (Reported) Pantoprazole Sodium 40 Mg Tablet.dr, 40 MG PO DAILY, (Reported) Polyethylene Glycol 3350 17 Gm Powd.pack, 17 GM PO BID, (Reported) Polyethylene Glycol 3350 17 Gm Powd.pack, 17 GM PO DAILY PRN for CONSTIPATION- 1ST LINE, (Reported) Rivaroxaban 20 Mg Tablet, 20 MG PO DAILY, (Reported) Simvastatin 20 Mg Tablet, 20 MG PO HS, (Reported) Solifenacin Succinate 10 Mg Tablet, 10 MG PO HS, (Reported) Spironolactone 50 Mg Tablet, 50 MG PO DAILY, (Reported) Tamsulosin HCl 0.4 Mg Cap, 0.4 MG PO 1600, (Reported) Tramadol HCl 50 Mg Tablet, 50 MG PO Q4H PRN for PAIN-MODERATE (5-7), (Reported) Venlafaxine HCl 75 Mg Cap.er.24h, 75 MG PO DAILY, (Reported) Zinc 50 Mg Tablet, 50 MG PO DAILY, (Reported) Patient Home Medication List Home Medication List Reviewed: Yes Past Ynbjmqt-Najkhp-Gqzvpa Hx Reviewed Nursing Assessment Reviewed/Agree w Nursing PMH: Yes Family Medical History Significant Family History: No Pertinent Family Hx Family Medial History: Alzheimer's disease 19 FATHER, Onset:60 years & older Dementia 19 FATHER, Onset:60 years & older Diabetes mellitus 19 FATHER, Onset:50's - 60 Review of Systems-General Constitutional: No chills, No diaphoresis EENTM: No ear pain, No blurred vision, No double vision Respiratory: No cough, No short of breath Cardiovascular: No edema Gastrointestinal: No abdominal pain; constipation (prior to admission. states has now resolved.), nausea (prior to admission. states has now resolved.), vomiting (coffee-colored prior to admission. states has now resolved.) Genitourinary: No discharge, No hematuria Musculoskeletal: No gout; other (right BKA) Skin: No change in color, No change in hair/nails Psychiatric/Neurological: Denies Anxiety, Denies Depressed All Other Systems Reviewed Negative Unless Noted: Yes (Negative excepted noted.) Physical Exam-General Problems Physical Exam General Appearance: no apparent distress, other (chronically ill appearing) HEENT: PERRL/EOMI, normal ENT inspection Neck: non-tender, full range of motion Respiratory: chest non-tender, no respiratory distress, no accessory muscle use Cardiovascular: regular rate, rhythm, no JVD Gastrointestinal: non tender, soft, no organomegaly, no pulsatile mass Rectal: deferred Back: no CVA tenderness, no vertebral tenderness Extremities: normal range of motion, no pedal edema (no edema on left. Right BKA.), other (right BKA with dressing in place. ) Neurologic/Psychiatric: alert, normal mood/affect, oriented x 3 Skin: normal color, warm/dry Lymphatic: no adenopathy Assessment/Plan Assessment/Plan Assessment/Plan hematemesis constipation prior CVA on Eliquis diabetes mellitus hx right BKA continue laxatives, current treatment symptoms improved with bms no longer having nausea or vomiting start clear liquid diet, will make n.p.o. after midnight in case EGD needs to be done monitor labs, especially HGB conservative treatment Hold anticoagulation On Protonix 40 mg twice daily plan for endoscopy outpatient unless more urgent action required Will follow Supervisory-Addendum Brief Verification & Attestation Participated in pt care: history, MDM, physical Personally performed: exam, history, MDM, supervision of care Care discussed with: Medical Student Procedures: n/a Results interpretation: Verified all documentation Verification and Attestation of Medical Student E/M Service A medical student performed and documented this service in my presence. I reviewed and verified all information documented by the medical student and made modifications to such information, when appropriate. I personally performed the physical exam and medical decision making. Cami Henderson, Mar 25, 2020,20:24 ARUNA HOPE MED STUDENT Mar 25, 2020 18:10 CAMI HENDERSON DO Mar 25, 2020 20:16
--- NOTE | 2020-03-25 18:41 | Wound Care Assessment ---
Wound Care Assessment Date Seen by Provider: Mar 25, 2020 Time Seen by Provider: 18:15 Chief Complaint R BKA. HPI The patient is a 69 year old male 2+ months s/p R BKA. 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 Nothing to add. Will sign off. Past Medical History: Admits Diabetes Type II (Chronic kidney disease, atrial fib, GI bleed.) Smoking Status: Never a Smoker Recreational Drug Use: No Alcohol Use: Denies Use Review of Systems Pulmonary: No Dyspnea Cardiovascular: No: Chest Pain Exam Vital Signs Date Time Temp Pulse Resp B/P (MAP) Pulse Ox O2 Delivery O2 Flow Rate FiO2 03/25/20 15:56 36.3 74 18 148/74 (98) 95 Room Air Capillary Refill : Less Than 3 Seconds General Appearance: no apparent distress Cardiovascular: regular rate, rhythm Respiratory: normal breath sounds Extremities: other (healed R BKA, without evidence of complication.) Results Laboratory Tests 03/25/20 05:23: White Blood Count 9.1, Red Blood Count 2.86L, Hemoglobin 8.5L, Hematocrit 25L, Mean Corpuscular Volume 87, Mean Corpuscular Hemoglobin 30, Mean Corpuscular Hemoglobin Concent 34, Red Cell Distribution Width 14.5, Platelet Count 200, Mean Platelet Volume 10.1, Immature Granulocyte % (Auto) 0, Neutrophils (%) (Auto) 75, Lymphocytes (%) (Auto) 16, Monocytes (%) (Auto) 6, Eosinophils (%) (Auto) 3, Basophils (%) (Auto) 0, Neutrophils # (Auto) 6.8, Lymphocytes # (Auto) 1.5, Monocytes # (Auto) 0.5, Eosinophils # (Auto) 0.3, Basophils # (Auto) 0.0, Immature Granulocyte # (Auto) 0.0, Sodium Level 139, Potassium Level 4.9, Chl oride Level 105, Carbon Dioxide Level 25, Anion Gap 9, Blood Urea Nitrogen 42H, Creatinine 1.82H, Estimat Glomerular Filtration Rate 37, BUN/Creatinine Ratio 23, Glucose Level 117H, Calcium Level 8.4L, Corrected Calcium 9.2, Total Bilirubin 0.2, Aspartate Amino Transf (AST/SGOT) 15, Alanine Aminotransferase (ALT/SGPT) 13, Alkaline Phosphatase 109, Total Protein 5.8L, Albumin 3.0L Assessment/Plan/Dx 1. Healed R BKA. 2. Diabetes, chronic kidney disease. 3. Acute GI bleed. Plan: He is to continue follow-up with operating surgeon. FLORENCIO TAYLOR MD Mar 25, 2020 18:41
[2020-03-25 19:13] VITALS: BP 138/75
[2020-03-26] VITALS: BP 137/83
[2020-03-26 04:50] VITALS: BP 117/56
[2020-03-26] MEDS: NS IV 1000 ML 1,000 ML IV SCH (06:17)
--- NOTE | 2020-03-26 07:34 | Progress Note - Surgery ---
SPENCER BATES MED STUDENT 03/26/20 0734: Subjective Time Seen by a Provider: 06:30 Subjective/Events-last exam PT FULLY ALERT, ORIENTED AND COMMUNICATING. PT APPEARS IN GOOD SPIRIT AND STATES HES FEELING STRONGER PROGRESSIVELY SINCE ADMISSION. PT STATES HE PASSED NORMAL STOOL OVER THE PAST 24HRS. HAS NOT HAD A EPISODE OF COFFEE GROUND EMESIS IN THE PAST 48HRS. NIGHT CALL NURSE SAID PT DID WELL THIS NIGHT. PT STATES HES HAD URINARY URGENCY SINCE A MEDICATION CHANGE 6 WEEKS AGO, PT DIDNT KNOW WHAT MED THIS WAS. Review of Systems General: No Night Sweats HEENT: No Visual Changes, No Eye Pain Gastrointestinal: Other (coffee ground emesis, 48hrs since last epsiode ) Objective Exam Vital Signs Date Time Temp Pulse Resp B/P (MAP) Pulse Ox O2 Delivery O2 Flow Rate FiO2 03/26/20 04:50 36.8 80 18 117/56 (76) 96 Room Air 03/26/20 00:00 73 18 137/83 (101) 92 Room Air 03/25/20 20:30 Room Air 03/25/20 19:13 36.7 86 18 138/75 (96) 95 Room Air 03/25/20 15:56 36.3 74 18 148/74 (98) 95 Room Air 03/25/20 12:00 36.4 71 20 143/73 (96) 98 Room Air 03/25/20 08:00 97 Room Air 03/25/20 08:00 36.4 70 20 124/67 (86) 97 Room Air I & O 03/26/20 07:00 Intake Total 2460 ml Balance 2460 ml Capillary Refill : Less Than 3 Seconds General Appearance: No Apparent Distress, WD/WN HEENT: PERRL/EOMI Respiratory: Lungs Clear, Normal Breath Sounds, No Respiratory Distress Cardiovascular: Regular Rate, Rhythm, No Edema, No Murmur Gastrointestinal: non tender, soft, no organomegaly, no pulsatile mass Extremity: Non Tender, No Pedal Edema, Other (right BKA with bandage in place) Neurologic/Psychiatric: Alert, No Motor/Sensory Deficits, Normal Mood/Affect, Disoriented Skin: Normal Color, Warm/Dry Lymphatic: No Adenopathy Assessment/Plan Assessment/Plan Admission Diagonsis ACUTE UPPER GI BLEED Assessment/Plan ACUTE UPPER GI BLEED: CONTINUE TO MONITOR CBC FOR DIRECTION OF HGB CHANGE. 03/25 HGB 8.5, TODAY 03/[address] HENDERSON IS PLANNING TO DO A OUTPATIENT ENDOSCOPY ONCE THE PT IS DISCHARGED. CONSTIPATION: PT PASSED STOOL IN THE PAST 24HRS. CONTINUE DOCUSATE AND BISACODYL 03/23 ABDOMINAL SERIES IMPRESSION: Significant amount of stool throughout the colon extending into the rectal vault which may relate to constipation. ACUTE ON CHRONIC ANEMIA: ACUTE IRON DEFICIENCY ANEMIA LIKELY DUE TO UPPER GI BLEED, MONITOR HGB AND TRANSFUSE IMMEDIATELY IF HGB FALLS UNDER 7.0. ANEMIA LIKELY COMPLICATED BY CKD. DVT PROPHYLAXIS: RE-START RIVAROXABAN DUE TO PAST MED HX OF STROKE. CKD: CONTINUE TO MONITOR GFR, CREATINE,BUN AND URINE OUTPUT. HYPOCALCEMIA: HAS TRENDED DOWN SINCE ADMISSION. CONSIDER SUPPLEMENTATION. Clinical Quality Measures DVT/VTE Risk/Contraindication: Risk Factor Score Per Nursin RFS Level Per Nursing on Admit: 4+=Very High Other: hold blood thinners Supervisory-Addendum Brief Verification & Attestation Participated in pt care: history, physical Personally performed: exam, history Care discussed with: Medical Student Procedures: n/a HISTORY AND PE PERFORMED BY STUDENT DOCTOR JANA, RE-EVALUATED BY DR HENDERSON. CAMI HENDERSON DO 03/26/20 184: Subjective Date Seen by a Provider: Mar 26, 2020 Subjective/Events-last exam Patient feeling better. He is having normal bowel movements. He denies any coffee-ground emesis or nausea or vomiting. Patient states he is doing well. He has no abdominal pain. He denies any new complaints. Denies any nausea vomiting fever sweats chills shortness of breath or chest pain. Hemoglobin 8. Objective Exam General Appearance: No Apparent Distress, WD/WN HEENT: PERRL/EOMI, Normal ENT Inspection Neck: Non Tender, Supple Respiratory: Chest Non Tender, No Accessory Muscle Use, No Respiratory Distress Cardiovascular: Regular Rate, Rhythm, No Edema Gastrointestinal: non tender, soft, no organomegaly, no pulsatile mass Extremity: Non Tender, Other (right BKA with bandage in place) Neurologic/Psychiatric: Alert, Oriented x3, No Motor/Sensory Deficits, Normal Mood/Affect Skin: Normal Color, Warm/Dry Lymphatic: No Adenopathy Assessment/Plan Assessment/Plan Assessment/Plan Anemia Hematemesis Constipation Recent history of right BKA History of CVA Patient is a 69-year-old male he is no longer having any hematemesis. He is having bowel movements. He is feeling much better today. Patient is on P rotonix. Patient needs to be on anticoagulation is being restarted. Will monitor hemoglobin. Patient would like to do outpatient endoscopy. Will follow. Supervisory-Addendum Brief Verification & Attestation Participated in pt care: history, MDM, physical Personally performed: exam, history, MDM, supervision of care Care discussed with: Medical Student Procedures: n/a Results interpretation: Verified all documentation Verification and Attestation of Medical Student E/M Service A medical student performed and documented this service in my presence. I reviewed and verified all information documented by the medical student and made modifications to such information, when appropriate. I personally performed the physical exam and medical decision making. Cami Henderson, Mar 26, 2020,18:42 SPENCER BATES MED STUDENT Mar 26, 2020 07:34 CAMI HENDERSON DO Mar 26, 2020 18:41
[2020-03-26 07:58] LABS: CALCIUM 7.6 MG/DL (8.5-10.1); CREATININE SERUM 1.33 MG/DL (0.60-1.30); POTASSIUM 4.6 MMOL/L (3.6-5.0)
[2020-03-26 08:00] VITALS: BP 125/69
[2020-03-26] MEDS: PANTOPRAZOLE 40 MG (PROTONIX) VIAL IV SCH (08:31)
--- NOTE | 2020-03-26 10:12 | Occupational Ther Daily Note ---
OT Current Status-Daily Note Subjective Pt alert, sitting in recliner. Pt agrees to therapy. Stated that he enjoys OT and PT, also that he is trying to keep up his humor. No c/o pain at this time. Mental Status/Objective Patient Orientation: Person, Place, Time, Situation Attachments: IV (midline) ADL-Treatment Therapy Code Descriptions/Definitions Functional [place] Measure: 0=Not Assessed/NA 4=Minimal Assistance 1=Total Assistance 5=Supervision or Setup 2=Maximal Assistance 6=Modified [place] 3=Moderate Assistance 7=Complete IndependenceSCALE: Activities may be completed with or without assistive devices. 5-Pyqtuxtyvd-qbfwpvw completes the activity by him/herself with no assistance from a helper. 5-Set-up or Clean-up Assistance-helper sets up or cleans up; patient completes activity. [place] assists only prior to or following the activity. 4-Supervision or Touching Assistance-helper provides verbal cues and/or touchin g/steadying and/or contact guard assistance as patient completes activity. Assistance may be provided throughout the activity or intermittently. 3-Partial/Moderate Assistance-helper does LESS THAN HALF the effort. Zachary lifts, holds or supports trunk or limbs, but provides less than half the effort. 2-Substantial/Maximal Assistance-helper does MORE THAN HALF the effort. Zachary lifts or holds trunk or limbs and provides more than half the effort. 4-Ahvjfbqaw-stfgoz does ALL the effort. Patient does none of the effort to complete the activity. Or, the assistance of 2 or more helpers is required for the patient to complete the activity. If activity was not attempted, code reason: 7-Patient Refused. 9-Not Applicable-not attempted and the patient did not perform the activity before the current illness, exacerbation or injury. 10-Not Attempted due to Environmental Limitations-(lack of equipment, weather restraints, etc.). 88-Not Attempted due to Medical Conditions or Safety Concerns. On/Off Footwear: 5 Other Treatment Pt stated that he has not been up and walking (hopping) while in [place] due to increased weakness. Co-treat with PT, required skills of 2 clinicians for instructions and modifications during mobility with FWW and ergonomical placement of UE/LE while using FWW. When handed sock for L foot, pt able to don sock slowly. Pt has decreased AROM with R hand, not muscle tone for thumb movement due to previous CVA's. Initially pt was placing full wt of R side on R CMC joint while standing with FWW. CHIN placed hand and wrist in correct position, hand over hand at area to maintain proper position. Pt educated on proper position. Assist x2 for sit to stand initially then pt able to sit to stand with CGA x2 for safety. Pt requires assist x2 for hopping forward in standing using FWW. Difficulty with moving backward, chair pulled up behind pt to sit. After therapy, pt sitting in recliner with LE's elevated. Call light/phone in reach. Nrsg student in room. All needs met. OT Senior Care Goals [employer] Goals Time Frame: Apr 08, 2020 Eating (QC): 6 Oral Hygiene (QC): 6 Toileting Hygiene (QC): 4 Shower/Bathe Self (QC): 4 Upper Body Dressing (QC): 5 Lower Body Dressing (QC): 4 On/Off Footwear (QC): 4 Additional Goals: 1-Demonstrate ADL Tasks, 2-Verbalize Understanding, 3- ImproveStrength/Khang 1=Demonstrate adherence to instructed precautions during ADL tasks. 2=Patient will verbalize/demonstrate understanding of assistive devices/modifications for ADL. 3=Patient will improve strength/tolerance for activity to enable patient to perform ADL's. OT Education/Plan Problem List/Assessment Assessment: Decreased Activ Tolerance, Decreased Safety Aware, Decreased UE Strength, Impaired Coordination, Impaired Funct Balance, Impaired Self-Care Skills, Restricted Funct UE ROM Discharge Recommendations Plan/Recommendations: Continue POC Treatment Plan/Plan of Care Patient would benefit from OT for education, treatment and training to promote independence in ADL's, mobility, safety and/or upper extremity function for ADL's. Plan of Care: ADL Retraining, Functional Mobility, UE Funct Exercise/Act, UE Neuromus Re-Ed/Coord, W/C Management Training Treatment Duration: Apr 08, 2020 Frequency: 5 times per week Estimated Hrs Per Day: .25 hour per day Rehab Potential: Fair Time/GCodes Start Time: 09:10 Stop Time: 09:28 Total Time Billed (hr/min): 18 Billed Treatment Time 1 visit-FA 1 (18 min) co-treat with PT INDIRA AVALOS Mar 26, 2020 10:12
--- NOTE | 2020-03-26 10:14 | Physical Therapy Daily Note ---
PT Daily Note-Current Subjective Patient reports he is feeling better today. Agrees to PT/OT cotreat. Mental Status Patient Orientation: Normal For Age Attachments: IV Transfers SCALE: Activities may be completed with or without assistive devices. 0-Ogllfdmosr-swxutvl completes the activity by him/herself with no assistance from a helper. 5-Set-up or Clean-up Assistance-helper sets up or cleans up; patient completes activity. [place] assists only prior to or following the activity. 4-Supervision or Touching Assistance-helper provides verbal cues and/or touching/steadying and/or contact guard assistance as patient completes activity . Assistance may be provided throughout the activity or intermittently. 3-Partial/Moderate Assistance-helper does LESS THAN HALF the effort. [place] lifts, holds or supports trunk or limbs, but provides less than half the effort. 2-Substantial/Maximal Assistance-helper does MORE THAN HALF the effort. [place] lifts or holds trunk or limbs and provides more than half the effort. 9-Hyrfocvwt-ozekyf does ALL the effort. Patient does none of the effort to complete the activity. Or, the assistance of 2 or more helpers is required for the patient to complete the activity. If activity was not attempted, code reason: 7-Patient Refused. 9-Not Applicable-not attempted and the patient did not perform the activity before the current illness, exacerbation or injury. 10-Not Attempted due to Environmental Limitations-(lack of equipment, weather restraints, etc.). 88-Not Attempted due to Medical Conditions or Safety Concerns. Sit to Stand (QC): 4 x 4 sets with CGA x 2 for safety Weight Bearing Right Lower Extremity: Right Non Weight Bearing (BKA) Left Lower Extremity: Left Full Weight Bearing Gait Training Does the Patient Walk?: No and Walking Goal IS indicated Distance: 3 hops x 2 Gait Persons Needed: 2 Gait Assistive Device: FWW difficulty with clearing left foot with use of bilateral UE's with FWW due to weakness (patient reports he doesn't ambulate at [place] and is in bed or w/c PLOF) Exercises Seated Therapy Exercises: Ankle pumps, Long arc quads Seated Reps: 15 (left LE) Assessment Patient was able to perform sit to stand to FWW with close SBA of 2 people x 2 sets. Patient progressing with treatment plan. PT Fpc Goals Fpc Goals PT Fpc Goals Time Frame: Apr 01, 2020 Roll Left & Right (QC): 6 Sit to Lying (QC): 6 Lying-Sitting on Side/Bed(QC): 6 Sit to Stand (QC): 4 Chair/Ywh-fn-Rgljc Xfer(QC): 4 Does the Patient Walk: No and Walking Goal NOT indicated Does the Pt use WC or Scooter?: Yes Wheel 50 feet with 2 turns (QC: 4 Type: Manual Wheel 150 feet: 4 Type: Manual PT Plan Treatment/Plan Treatment Plan: Continue Plan of Care Treatment Plan: Bed Mobility, Education, Functional Activity Khang, Functional Strength, Safety, Therapeutic Exercise, Transfers Treatment Duration: Apr 01, 2020 Frequency: 6 times per week Estimated Hrs Per Day: .25 hour per day Patient and/or Family Agrees t: Yes Time/GCodes Time In: 910 Time Out: 928 Total Billed Treatment Time: 18 Total Billed Treatment 1 visit FA 18 min (cotreat with OT) YAYA SANTIZO PT Mar 26, 2020 10:14
[2020-03-26] MEDS ORDERED: BISACODYL 10 MG SUPP (DULCOLAX) RC PRN (12:00)
--- NOTE | 2020-03-26 12:05 | Progress Note - Hospitalist ---
Subjective HPI/CC On Admission Date Seen by Provider: Mar 26, 2020 Time Seen by Provider: 10:15 Rangel Maldonado is a 69-year-old male with past medical history of hypertension, diabetes, hyperlipidemia, GERD, atrial fibrillation, BPH, CKD, who presented with coffee-ground emesis. He has been at [facility] in [place] after recently undergoing a right below the knee amputation due to diabetic foot wound. He reports that he had nausea and vomiting with dark emesis. He denies feeling lightheaded or dizzy. He denies any fevers or chills. He denies any shortness of breath or cough. He denies any chest pain. He denies any abdom inal pain. He denies any diarrhea. His any melena or hematochezia. Subjective/Events-last exam He denies any hematemesis. He denies any nausea or vomiting. He has not had any melena. He denies any lightheadedness or dizziness. He has no other complaints or concerns. Objective Exam Vital Signs Vital Signs Date Time Temp Pulse Resp B/P (MAP) Pulse Ox O2 Delivery O2 Flow Rate FiO2 03/26/20 16:01 36.8 88 18 137/67 (90) 98 Room Air Capillary Refill : Less Than 3 Seconds General Appearance: No Apparent Distress, WD/WN Respiratory: Lungs Clear, Normal Breath Sounds, No Respiratory Distress Cardiovascular: Regular Rate, Rhythm, No Edema, No Murmur Gastrointestinal: Normal Bowel Sounds, Non Tender, Soft Extremity: Non Tender, No Pedal Edema, Other (right BKA) Neurologic/Psychiatric: Alert, Oriented x3, No Motor/Sensory Deficits, Normal Mood/Affect Skin: Normal Color, Warm/Dry Results/Procedures Lab Laboratory Tests 03/26/20 07:01 Patient resulted labs reviewed. Imaging: Reviewed Imaging Report Assessment/Plan Assessment and Plan Assess & Plan/Chief Complaint Upper GI bleeding Hematemesis Chronic anticoagulation no hematemesis since arrival Hemoglobin 8 this morning, slightly down Gen. surgery consulted, appreciate assistance planning for outpatient EGD transition to oral PPI resume Xarelto advance diet as tolerated to general Check hemoglobin tomorrow morning GWENDOLYN on CKD unknown baseline creatinine 2.32 on arrival, down to 1.33 this morning T2DM Recent BKA hold home insulin sliding scale insulin PT/OT HTN HLD GERD BPH continue home meds DVT prophylaxis: Already receiving therapeutic anticoagulation Diagnosis/Problems Diagnosis/Problems (1) Hematemesis Status: Acute Qualifiers: Nausea presence: with nausea Qualified Codes: K92.0 - Hematemesis (2) Upper GI bleeding Status: Acute (3) Chronic anticoagulation Status: Chronic (4) Acute kidney injury superimposed on chronic kidney disease Status: Acute (5) HTN (hypertension) Status: Chronic (6) T2DM (type 2 diabetes mellitus) Status: Chronic (7) HLD (hyperlipidemia) Status: Chronic (8) GERD (gastroesophageal reflux disease) Status: Chronic (9) Afib Status: Chronic (10) BPH (benign prostatic hyperplasia) Status: Chronic Clinical Quality Measures DVT/VTE Risk/Contraindication: Risk Factor Score Per Nursin RFS Level Per Nursing on Admit: 4+=Very High Other: hold blood thinners ENZO HASKINS MD Mar 26, 2020 12:05
[2020-03-26 12:06] VITALS: BP 132/79
[2020-03-26] MEDS ORDERED: RIVAROXABAN 20 MG TABLET (XARELTO) PO NR (12:57)
--- NOTE | 2020-03-26 14:14 | NUR ---
JANE/VAL follow up. Plan: Patient will return to [facility] skilled tomorrow 03/27. [facility]: CM/SS attempted to contact the DON Jennifer to discuss discharge plans. She did not answer but a voice mail with call back number was left. JANE/SS faxed updated clinical to facility. JANE/SS met with patient to give an update. CM/SS informed patient that the plan is to get him home tomorrow. He verbalized understanding. The patient verbalized that he did not want this sw to call his yet with update. JANE/SS will continue to follow. Addendum: 03/26/20 at 1615 by CATIE LORENZANA JANE/SS received call back from Jennifer at [facility]. She states that the patient will be able to return tomorrow Skilled. Jennifer verbalized that he was already skilled and has qualifying stay. JANE/SS set up miner pick time for 2:00 p.m. tomorrow 03/27. JANE/SS notified patient nurse.
--- NOTE | 2020-03-26 14:32 | NUR ---
Pt was in good spirits and seemed to enjoy talking. Said his care has been exceptional. Rehabilitation Team Lead provided prayer.
[2020-03-26] MEDS ORDERED: TAMSULOSIN 0.4 MG (FLOMAX) CAP PO SCH (16:00)
[2020-03-26 16:01] VITALS: BP 137/67
[2020-03-26] MEDS ORDERED: ONDANSETRON 4 MG/2 ML (SDV) Z0FRAN IV PRN (16:45)
[2020-03-26] MEDS ORDERED: ANTACID SUSP 30 ML UDC (MYLANTA) PO PRN (16:45)
[2020-03-26] MEDS ORDERED: MELATONIN 3 MG TABLET PO PRN (16:45)
[2020-03-26] MEDS ORDERED: ONDANSETRON 4 MG (ZOFRAN) ORAL DISSOLVE TAB PO PRN (16:45)
[2020-03-26 19:46] VITALS: BP 133/63
[2020-03-26] MEDS: FERROUS SULF 325 MG (IRON) TAB PO SCH (20:10)
[2020-03-26] MEDS: polyethylene glycoL POWDER 17 GM (MIRALAX) PACK PO SCH (20:11)
[2020-03-26] MEDS: PANTOPRAZOLE 40 MG (PROTONIX) TAB PO SCH (20:11)
[2020-03-26] MEDS: DOCUSATE SODIUM 100 MG (COLACE) CAP PO SCH (20:11)
[2020-03-26] MEDS: ACETAMINOPHEN 325 MG TABLET PO PRN (20:11)
[2020-03-26] MEDS ORDERED: SIMvastatin 20 MG (ZOCOR) TAB PO SCH (21:00)
[2020-03-26] MEDS ORDERED: MIRTAZAPINE 15 MG (REMERON) TAB PO SCH (21:00)
[2020-03-27 00:29] VITALS: BP 130/64
[2020-03-27 04:13] VITALS: BP 128/66
[2020-03-27 06:00] LABS: HEMOGLOBIN 7.8 g/dL (13.3-17.7)
[2020-03-27 08:00] VITALS: BP 155/65
--- NOTE | 2020-03-27 08:08 | Progress Note - Surgery ---
SPENCER BATES MED STUDENT 03/27/20 0808: Subjective Time Seen by a Provider: 07:30 Subjective/Events-last exam PT DENIES ANY RECENT HISTORY OF COFFEE-GROUND EMESIS PRODUCTION. PT HAS NOW GONE 72 HRS WITHOUT SUCH EVENT. THOUGHT PTS HGB CONTINUES TO DECREASE SINCE ADMISSION (7.8 03/27 CBC) PT STATES HE CONTINUES TO FEEL 'STRONGER'. PT DENIES ANY SOB AND WEAKNESS WITH MOVEMENT YESTERDAY. PT URINATED AND PASSED STOOL YESERDAY, PT DIDNT SEE THE CONSISTENCY OF THE STOOL. PT DENIES NAUSEA, VOMITING, ABDOMINAL PAIN, CHEST PAIN, AND DYSPNEA. Review of Systems General: No Chills, No Night Sweats Pulmonary: No Dyspnea, No Cough, No Pleuritic Chest Pain Cardiovascular: No: Chest Pain, Palpitations Gastrointestinal: No: Nausea, Vomiting, Abdominal Pain Genitourinary: No Dysuria, No Frequency Objective Exam Vital Signs Date Time Temp Pulse Resp B/P (MAP) Pulse Ox O2 Delivery O2 Flow Rate FiO2 03/27/20 04:13 37.1 71 16 128/66 (86) 97 Room Air 03/27/20 00:29 36.7 76 17 130/64 (86) 97 Room Air 03/26/20 20:00 Room Air 03/26/20 19:46 36.8 92 18 133/63 (86) 98 Room Air 03/26/20 16:01 36.8 88 18 137/67 (90) 98 Room Air 03/26/20 12:06 36.6 87 18 132/79 (96) 100 Room Air I & O 03/27/20 07:00 Intake Total 2870 ml Balance 2870 ml Capillary Refill : Less Than 3 Seconds General Appearance: No Apparent Distress, WD/WN Respiratory: Chest Non Tender, Lungs Clear, Normal Breath Sounds, No Accessory Muscle Use, No Respiratory Distress Cardiovascular: Regular Rate, Rhythm, No Edema Gastrointestinal: non tender, soft, no organomegaly, no pulsatile mass Extremity: Other (right BKA with bandage in place) Neurologic/Psychiatric: Alert, Oriented x3, No Motor/Sensory Deficits, Normal Mood/Affect Skin: Normal Color, Warm/Dry Lymphatic: No Adenopathy Results Lab Laboratory Tests 03/27/20 05:04: Hemoglobin 7.8L, Hematocrit 23L Assessment/Plan Assessment/Plan Admission Diagonsis ACUTE UPPER GI BLEED. Assessment/Plan ACUTE UPPER GI BLEED: CONTINUE TO MONITOR CBC FOR DIRECTION OF HGB CHANGE. 03/26 HGB 8.0, TODAY 03/[address] HENDERSON IS PLANNING TO DO A OUTPATIENT ENDOSCOPY ONCE THE PT IS DISCHARGED. CONSTIPATION: PT PASSED STOOL IN THE PAST 24HRS. CONTINUE DOCUSATE AND BISACODYL 03/23 ABDOMINAL SERIES IMPRESSION: Significant amount of stool throughout the colon extending into the rectal vault which may relate to constipation. ACUTE ON CHRONIC ANEMIA: ACUTE IRON DEFICIENCY ANEMIA LIKELY DUE TO UPPER GI BLEED, MONITOR HGB AND TRANSFUSE IMMEDIATELY IF HGB FALLS UNDER 7.0. ANEMIA LIKELY COMPLICATED BY CKD. DVT PROPHYLAXIS: RE-STARTED RIVAROXABAN DUE TO PAST MED HX OF STROKE. CKD: CONTINUE TO MONITOR GFR, CREATINE,BUN AND URINE OUTPUT. HYPOCALCEMIA: HAS TRENDED DOWN SINCE ADMISSION. CONSIDER SUPPLEMENTATION. Clinical Quality Measures DVT/VTE Risk/Contraindication: Risk Factor Score Per Nursin RFS Level Per Nursing on Admit: 4+=Very High Other: hold blood thinners Supervisory-Addendum Brief Verification & Attestation Participated in pt care: history, physical Personally performed: exam, history Care discussed with: Medical Student Procedures: n/a HISTORY AND PE PERFORMED BY LUCIE BATES, PT RE-EVALUATED BY DR HENDERSON. CAMI HENDERSON DO 03/27/20 1300: Subjective Date Seen by a Provider: Mar 27, 2020 Subjective/Events-last exam Patient no n/v. Feeling well. Minimal drop in hgb. No abdominal pain. Having bm. Denies n/v fever sweats chills shortness of breath or chest pain. Objective Exam General Appearance: No Apparent Distress, WD/WN HEENT: PERRL/EOMI, Normal ENT Inspection Neck: Non Tender Respiratory: Chest Non Tender, No Accessory Muscle Use, No Respiratory Distress Cardiovascular: Regular Rate, Rhythm, No JVD Gastrointestinal: non tender, soft, no organomegaly Extremity: Non Tender, Other (right BKA with bandage in place) Neurologic/Psychiatric: Alert, Oriented x3, No Motor/Sensory Deficits, Normal Mood/Affect Skin: Normal Color, Warm/Dry Lymphatic: No Adenopathy Assessment/Plan Assessment/Plan Assessment/Plan hematemesis, constipation, recent hx right bka hx stroke started anticoauglation no more sx will plan outpatient egd/colonoscopy for further evaluation will sign off call if needed. Supervisory-Addendum Brief Verification & Attestation Participated in pt care: history, MDM, physical Personally performed: exam, history, MDM, supervision of care Care discussed with: Medical Student Procedures: n/a Results interpretation: Verified all documentation Verification and Attestation of Medical Student E/M Service A medical student performed and documented this service in my presence. I reviewed and verified all information documented by the medical student and made modifications to such information, when appropriate. I personally performed the physical exam and medical decision making. Cami Henderson, Mar 27, 2020,13:00 SPENCER BATES MED STUDENT Mar 27, 2020 08:08 CAMI HENDERSON DO Mar 27, 2020 13:00
[2020-03-27] MEDS: PANTOPRAZOLE 40 MG (PROTONIX) TAB PO SCH (08:26)
[2020-03-27] MEDS: ACETAMINOPHEN 325 MG TABLET PO PRN (08:26)
[2020-03-27] MEDS: DOCUSATE SODIUM 100 MG (COLACE) CAP PO SCH (08:27)
[2020-03-27] MEDS: FERROUS SULF 325 MG (IRON) TAB PO SCH (08:27)
[2020-03-27] MEDS: polyethylene glycoL POWDER 17 GM (MIRALAX) PACK PO SCH (08:28)
[2020-03-27] MEDS ORDERED: PANTOPRAZOLE 40 MG (PROTONIX) TAB PO SCH (09:00)
[2020-03-27] MEDS ORDERED: amLODIPine 10 MG (NORVASC) TAB PO SCH (09:00)
[2020-03-27] MEDS ORDERED: RIVAROXABAN 20 MG TABLET (XARELTO) PO SCH (09:00)
[2020-03-27] MEDS ORDERED: meTOprolol TARTRATE 50 MG (LOPRESSOR) TAB PO SCH (09:00)
[2020-03-27] MEDS ORDERED: VENlafaxine XR 75 MG (EFFEXOR XR) CAP PO SCH (09:00)
[2020-03-27] MEDS ORDERED: ASPIRIN 81 MG CHEW (CHILDREN'S ASA) PO SCH (09:00)
[2020-03-27] MEDS ORDERED: SPIRONOLACTONE 25 MG (ALDACTONE) TAB PO SCH (09:00)
[2020-03-27] MEDS ORDERED: AMIODARONE 200 MG (CORDARONE) TAB PO SCH (09:00)
[2020-03-27] MEDS ORDERED: PANT40TA52 PO (10:24)
--- NOTE | 2020-03-27 10:38 | Occupational Ther Daily Note ---
OT Current Status-Daily Note Subjective Pt alert, sitting in recliner. Pt states that he is feeling good. Possible discharge today to [facility]. Mental Status/Objective Patient Orientation: Person, Place, Time, Situation ADL-Treatment Therapy Code Descriptions/Definitions Functional [place] Measure: 0=Not Assessed/NA 4=Minimal Assistance 1=Total Assistance 5=Supervision or Setup 2=Maximal Assistance 6=Modified [place] 3=Moderate Assistance 7=Complete IndependenceSCALE: Activities may be completed with or without assistive devices. 8-Pxydddrrmr-sfhsswu completes the activity by him/herself with no assistance from a helper. 5-Set-up or Clean-up Assistance-helper sets up or cleans up; patient completes activity. Gilman assists only prior to or following the activity. 4-Supervision or Touching Assistance-helper provides verbal cues and/or touching/steadying and/or contact guard assistance as patient completes activity. Assistance may be provided throughout the activity or intermittently. 3-Partial/Moderate Assistance-helper does LESS THAN HALF the effort. Gilman lifts, holds or supports trunk or limbs, but provides less than half the effort. 2-Substantial/Maximal Assistance-helper does MORE THAN HALF the effort. Gilman lifts or holds trunk or limbs and provides more than half the effort. 2-Dphjkedee-xjkjyf does ALL the effort. Patient does none of the effort to complete the activity. Or, the assistance of 2 or more helpers is required for the patient to complete the activity. If activity was not attempted, code reason: 7-Patient Refused. 9-Not Applicable-not attempted and the patient did not perform the activity before the current illness, exacerbation or injury. 10-Not Attempted due to Environmental Limitations-(lack of equipment, weather restraints, etc.). 88-Not Attempted due to Medical Conditions or Safety Concerns. Other Treatment Pt agrees to complete standing tasks and B UE AROM. Pt requires CGA for sit to stand to maintain balance while reaching for FWW. Pt able to stand 4x's using FWW with minimal balance breaks while completing L UE reaching tasks. Pt then completed R UE AAROM to increase ROM throughout R UE. Pt has ~45* shldr flexion, AROM with compensatory patterns then 90* APROM. Pt educated on R hand placement while wt bearing on FWW. Pt educated on requesting w/c at [facility] for mobi lity. After session, pt sitting in recliner with call light/phone in reach. All needs met in room. Education OT Patient Education: Transfer techniques, Use of adapted equipment, W/C management Teaching Recipient: Patient Teaching Methods: Demonstration, Discussion Response to Teaching: Verbalize Understanding, Return Demonstration OT Dealer Account Manager Goals Dealer Account Manager Goals Time Frame: Apr 08, 2020 Eating (QC): 6 Oral Hygiene (QC): 6 Toileting Hygiene (QC): 4 Shower/Bathe Self (QC): 4 Upper Body Dressing (QC): 5 Lower Body Dressing (QC): 4 On/Off Footwear (QC): 4 Additional Goals: 1-Demonstrate ADL Tasks, 2-Verbalize Understanding, 3- ImproveStrength/Khang 1=Demonstrate adherence to instructed precautions during ADL tasks. 2=Patient will verbalize/demonstrate understanding of assistive devices/modifications for ADL. 3=Patient will improve strength/tolerance for activity to enable patient to perform ADL's. OT Education/Plan Problem List/Assessment Assessment: Impaired Funct Balance, Restricted Funct UE ROM Discharge Recommendations Plan/Recommendations: Continue POC Treatment Plan/Plan of Care Patient would benefit from OT for education, treatment and training to promote independence in ADL's, mobility, safety and/or upper extremity function for ADL's. Plan of Care: ADL Retraining, Functional Mobility, UE Funct Exercise/Act, UE Neuromus Re-Ed/Coord, W/C Management Training Treatment Duration: Apr 08, 2020 Frequency: 5 times per week Estimated Hrs Per Day: .25 hour per day Rehab Potential: Fair Time/GCodes Start Time: 09:57 Stop Time: 10:12 Total Time Billed (hr/min): 15 Billed Treatment Time 1 visit-FA 1 (15 min) INDIRA AVALOS Mar 27, 2020 10:38
--- NOTE | 2020-03-27 11:55 | Discharge Summary ---
Discharge Summary Reconcile Patient Problems Problems Reviewed?: Yes Hospital Course Hospital Course Date of Admission: Mar 25, 2020 at 14:31 Admission Diagnosis: Hematemesis Family Physician/Provider: Jaimie Date of Discharge: 03/27/20 Discharge Diagnosis: Hematemesis due to acute upper GI bleeding Hospital Course: Rangel Maldonado is a 69-year-old male who presented with hematemesis and was admitted with acute upper GI bleeding. His hemoglobin dropped to 8 and stabilized. He did not have any further hematemesis or melena since admission. Since his bleed stopped and his hemoglobin stabilized, surgery decided to defer endoscopy to outpatient. He should continue Protonix 40 mg twice daily. He needs to have his hemoglobin checked on Monday. He should follow-up with Dr. Henderson next week. He should follow-up with his primary care physician in a couple weeks. Labs and Pending Lab Test: Laboratory Tests 03/27/20 05:04: Hemoglobin 7.8L, Hematocrit 23L Home Meds Active Pantoprazole Sodium 40 Mg Tablet.dr 40 Mg PO BID 30 Days Reported Lactinex Chewable Tablet (L. Acidophilus/Bulgaricus) 1 Each Tab.chew 1 Each PO BID Zinc 50 Mg Tablet 50 Mg PO DAILY Centrum Chewables Adults Tab (Multivit-Min/Iron/Folic/Vit K1) 1 Each Tab.chew 1 Each PO DAILY Anusol-Hc (Hydrocortisone Acetate) 25 Mg Supp.rect 25 Mg RC Q12H PRN Tramadol HCl 50 Mg Tablet 50 Mg PO Q4H PRN Docusate Sodium 100 Mg Capsule 100 Mg PO BID Aspirin 81 Mg Tab.chew 81 Mg PO BID Flomax (Tamsulosin HCl) 0.4 Mg Cap 0.4 Mg PO 1600 Novolog (Insulin Aspart) 100 Unit/1 Ml Susp Unit SQ ACHS 0-60= 0u initiate hypoglycemia protocol and notify PCP; 61-150= 0u 151-200= 4u 201-250= 6u 251-300= 8u 301-350 = 10u 351-400= 12u 401+ = call PCP Ferrous Sulfate 325 Mg Tablet 325 Mg PO BID Mirtazapine 15 Mg Tablet 15 Mg PO HS Levemir Flextouch (Insulin Detemir) 100 Unit/1 Ml Insuln.pen 5 Unit SQ BID Vesicare (Solifenacin Succinate) 10 Mg Tablet 10 Mg PO HS Simvastatin 20 Mg Tablet 20 Mg PO HS Spironolactone 50 Mg Tablet 50 Mg PO DAILY Xarelto (Rivaroxaban) 20 Mg Tablet 20 Mg PO DAILY Diltiazem ER (Diltiazem HCl) 180 Mg Capsule.er 180 Mg PO DAILY Ascorbic Acid 500 Mg Tablet 500 Mg PO DAILY Venlafaxine HCl ER (Venlafaxine HCl) 75 Mg Cap.er.24h 75 Mg PO DAILY Amiodarone HCl 200 Mg Tablet 200 Mg PO DAILY HOLD MEDICATION IS BP <100/60 OR PULSE <60 Metoprolol Tartrate 50 Mg Tablet 50 Mg PO DAILY HOLD MEDICATION IS BP <100/60 OR PULSE <60 Amlodipine Besylate 10 Mg Tablet 10 Mg PO DAILY HOLD MEDICATION IS BP <100/60 OR PULSE <60 Miralax (Polyethylene Glycol 3350) 17 Gm Powd.pack 17 Gm PO DAILY PRN Bisacodyl 10 Mg Supp.rect 10 Mg RC Q12H PRN Miralax (Polyethylene Glycol 3350) 17 Gm Powd.pack 17 Gm PO BID Instructions to Patient/Family Assessment/Instructions take medications as prescribed. Begin taking Protonix twice daily. You'll have a repeat hemoglobin check on Monday. Follow-up with Dr. Henderson and about a week. You will need to get an upper endoscopy as an outpatient. Follow-up with your primary care doctor in a couple weeks. Follow Up Appt.: Santiago 1 week Jaimie 2 weeks [place]illed [place] [facility] [place] I certify that SNF services are required to be given on an inpatient basis because of the above named patient's need for senior living care on a continuing basis for the conditions(s) for which he/she was receiving inpatient hospital services prior to his/her transfer to the SNF. Snf Facility Order: Nursing Services, Edi Analyst-Evaluate & Treat, Physical Therapy-Evaluate & Treat Oxygen Delivery Method: Room Air Discharge Diet: No Restrictions Daily Activity as Tolerated: Yes Resuscitation Status: Full Code Enzo Haskins Mar 27, 2020 11:50 Pneu Vac Indicated: Yes Discharge Physical Exam General: Alert, Oriented X3, Cooperative, No Acute Distress HEENT: Atraumatic, EOMI, Mucous Memb Moist/[place] Lungs: Clear to Auscultation, Normal Air Movement Heart: Regular Rate, Normal S1, Normal S2, No Murmurs Abdomen: Normal Bowel Sounds, Soft, No Tenderness Extremities: No Edema, No Tenderness/Swelling, Other (right BKA) Neuro: Normal Speech, Normal Tone Psych/Mental Status: Mental Status NL, Mood NL ENZO HASKINS MD Mar 27, 2020 11:55
[2020-03-27 12:00] VITALS: BP 136/68
--- NOTE | 2020-03-27 12:45 | NUR ---
Report called to VAIBHAV Armijo at [facility].
--- NOTE | 2020-03-27 13:03 | NUR ---
CM/SS finalized discharge. Plan: The patient will return to [facility] today at 2:00 p.m. Medicalodges: JANE/SS attempted to contact Jennifer at the facility x2. No answer and the voicemail did not come on. JANE/SS faxed finalized discharge to facility. JANE/VAL informed the patient's primary care nurse. JANE/SS contacted patient's Renee to give an update. She verbalized understanding. No further needs at this time.
--- NOTE | 2020-03-30 05:03 | Physician Query Clarification ---
PQ-Link Manifestation-Etiology Admission/Discharge Admission Date: Mar 25, 2020 at 14:31 Discharge Date: Mar 27, 2020 at 14:08 Dr. ENZO HASKINS MD The medical record reflects the following clinical scenario: History/Risk Factors: 69 y/o male patient admitted with GI bleed requiring IV medications, had history of stroke, on chronic anti-coaglation, recent BKA. Clinical Findings: Hemoglobiin levels 8.5 Treatment: IV PPI, resume Xarelto Question: Can you specify if the GI bleed is due to/associated with chronic anticoagulation ? Please document a response in the Progress Note or Discharge Summary. 1. Yes - GI bleed is due to/associated with chronic anticoagulation. 2. No - GI bleed is not due to/associated with chronic anticoagulation. 3. Other, with explanation of the clinical findings. 4. Clinically undetermined, no explanation for the clinical findings. PHYSICIAN RESPONSE Manifestation due to/assoic: Yes Please remember a lack of response to the above will prompt a phone page by CDI/Coding staff. In responding to this query, please exercise your independent professional judgment. The purpose of this communication is to more accurately reflect the complexity of your patients condition. The fact that a question is asked does not imply that any particular answer is desired or expected. Thank you for your timely response to this clarification. Requestors name: [ Percy Downing ] Phone # [ ] THIS PHYSICIAN QUERY FORM IS A PERMANENT PART OF THE MEDICAL RECORD ANDRES PAN Mar 30, 2020 05:03 ENZO HASKINS MD Apr 06, 2020 16:19
== END 2020-03-27 14:08 | DRG 813 ==
LOC: EDUNIT# 16:09 → ER 16:10 → 4TH 18:26 → OBSVTOIN 03-25 14:31
PROVIDERS: ADMIT Internal Medicine; ATTEND Internal Medicine
DX: D68.32 Hemorrhagic disorder due to extrinsic circulating anticoagulants (principal); N17.9 Acute kidney failure, unspecified; D50.9 Iron deficiency anemia, unspecified; K59.00 Constipation, unspecified; N18.9 Chronic kidney disease, unspecified; E11.649 Type 2 diabetes mellitus with hypoglycemia without coma; I12.9 Hypertensive chronic kidney disease with stage 1 through stage 4 chronic kidney disease, or unspecified chronic kidney disease; N40.0 Benign prostatic hyperplasia without lower urinary tract symptoms; E78.5 Hyperlipidemia, unspecified; K21.9 Gastro-esophageal reflux disease without esophagitis; I48.91 Unspecified atrial fibrillation; Z79.01 Long term (current) use of anticoagulants; Z89.511 Acquired absence of right leg below knee; Z86.73 Personal history of transient ischemic attack (TIA), and cerebral infarction without residual deficits
CPT/HCPCS: 36415; 74022; 80048; 80053; 83690; 85014; 85018; 85025; 86141; 96361; 96374; 96375; G0378

== ENCOUNTER 2020-04-25 11:49 | Emergency (ER) | payer MEDICARE, OTHER ==
[~2020-04-25] VITALS: Ht 193 cm; Wt 76.0 kg
[~2020-04-25 11:49] MED LIST: ACID1TAB5 PO; AMIO200T6 PO; AMLO-251 PO; ASCO500T7 PO; ASPI-999 PO; BISA10SU8 RC; DILT180C82 PO; DOCU100C37 PO; FERR325T18 PO; HYDR25SU28 RC; INSU100I29 SQ; INSU100V16 SQ; METO50TA15 PO; MIRT15TA6 PO; MULT-1112 PO; MULT-1136 PO; PANT40TA52 PO; POLY17PO6 PO; RIVA20TA PO; SIMV20TA26 PO; SOLI10TA2 PO; SPIR50TA4 PO; TMSL.4C PO; TRM50T PO; VENL75CA93 PO; ZINC50TA51 PO; ZINC50TA58 PO
--- NOTE | 2020-04-25 12:07 | ED Abdominal Pain ---
General Chief Complaint: Abdominal/GI Problems Stated Complaint: VOMITING Source of Information: Patient Exam Limitations: No Limitations History of Present Illness Date Seen by Provider: Apr 25, 2020 Time Seen by Provider: 12:05 Initial Comments To ER with uncontrollable vomiting since this morning. He was admitted to the hospital about a month ago for severe constipation. He does have a history of GI bleed. His vomit has appeared normal, not dark or coffee ground in appearance according to staff, nor is it grossly bloody. He does have some left flank pain. This began this morning as well. He has been passing gas. He did have a right lower extremity below the knee amputation about a month ago for complications from diabetes. Timing/Duration: 4-6 Hours Severity/Quality: Moderate Location: Flank Radiation: No Radiation Activities at Onset: None Associated Symptoms: Nausea/Vomiting Allergies and Home Medications Allergies Coded Allergies: No Known Drug Allergies (Unverified , 03/24/20) Home Medications Amiodarone HCl 200 Mg Tablet, 200 MG PO DAILY, (Reported) HOLD MEDICATION IS BP <100/60 OR PULSE <60 Amlodipine Besylate 10 Mg Tablet, 10 MG PO DAILY, (Reported) HOLD MEDICATION IS BP <100/60 OR PULSE <60 Ascorbic Acid 500 Mg Tablet, 500 MG PO DAILY, (Reported) Aspirin 81 Mg Tab.chew, 81 MG PO BID, (Reported) Bisacodyl 10 Mg Supp.rect, 10 MG RC Q12H PRN for CONSTIPATION-4TH LINE, (Reported) Diltiazem HCl 180 Mg Capsule.er, 180 MG PO DAILY, (Reported) Docusate Sodium 100 Mg Capsule, 100 MG PO BID, (Reported) Ferrous Sulfate 325 Mg Tablet, 325 MG PO BID, (Reported) Hydrocortisone Acetate 25 Mg Supp.rect, 25 MG RC Q12H PRN for HEMMORRHOID DISCOMFORT, (Reported) Insulin Aspart 100 Unit/1 Ml Susp, UNIT SQ ACHS, (Reported) 0-60= 0u initiate hypoglycemia protocol and notify PCP; 61-150= 0u 151-200= 4u 201-250= 6u 251-300= 8u 301-350 = 10u 351-400= 12u 401+ = call PCP Insulin Detemir 100 Unit/1 Ml Insuln.pen, 5 UNIT SQ BID, (Reported) L. Acidophilus/Bulgaricus 1 Each Tab.chew, 1 EACH PO BID, (Reported) Metoprolol Tartrate 50 Mg Tablet, 50 MG PO DAILY, (Reported) HOLD MEDICATION IS BP <100/60 OR PULSE <60 Mirtazapine 15 Mg Tablet, 15 MG PO HS, (Reported) Multivit-Min/Iron/Folic/Vit K1 1 Each Tab.chew, 1 EACH PO DAILY, (Reported) Pantoprazole Sodium 40 Mg Tablet.dr, 40 MG PO BID Prescribed by: ENZO HASKINS on 03/27/20 1024 Polyethylene Glycol 3350 17 Gm Powd.pack, 17 GM PO BID, (Reported) Polyethylene Glycol 3350 17 Gm Powd.pack, 17 GM PO DAILY PRN for CONSTIPATION- 1ST LINE, (Reported) Rivaroxaban 20 Mg Tablet, 20 MG PO DAILY, (Reported) Simvastatin 20 Mg Tablet, 20 MG PO HS, (Reported) Solifenacin Succinate 10 Mg Tablet, 10 MG PO HS, (Reported) Spironolactone 50 Mg Tablet, 50 MG PO DAILY, (Reported) Tamsulosin HCl 0.4 Mg Cap, 0.4 MG PO 1600, (Reported) Tramadol HCl 50 Mg Tablet, 50 MG PO Q4H PRN for PAIN-MODERATE (5-7), (Reported) Venlafaxine HCl 75 Mg Cap.er.24h, 75 MG PO DAILY, (Reported) Zinc 50 Mg Tablet, 50 MG PO DAILY, (Reported) Patient Home Medication List Home Medication List Reviewed: Yes Review of Systems Review of Systems Constitutional: see HPI EENTM: No Symptoms Reported Respiratory: No Symptoms Reported Cardiovascular: No Symptoms Reported Gastrointestinal: See HPI, Abdominal Pain, Nausea, Vomiting Genitourinary: No Symptoms Reported Musculoskeletal: no symptoms reported Skin: no symptoms reported Psychiatric/Neurological: No Symptoms Reported Endocrine: No Symptoms Reported Hematologic/Lymphatic: No Symptoms Reported Past Bcwfkqv-Icsqmt-Tizbzn Hx Patient Social History Drug of Choice: marijuana (occasional) 2nd Hand Smoke Exposure: No Recent Foreign Travel: No Contact w/Someone Who Travel: No Recent Hopitalizations: No Seasonal Allergies Seasonal Allergies: No Past Medical History Surgeries: Yes Adenoidectomy, Tonsillectomy, Vasectomy Cardiac: Yes Atrial Fibrillation Gastrointestinal: Yes Gastroesophageal Reflux Musculoskeletal: Yes Amputee Endocrine: Yes Diabetes, Insulin dep HEENT: No Cancer: No Psychosocial: Yes Anxiety Blood Disorders: Yes (Anemia ) Family Medical History Alzheimer's disease 19 FATHER, Onset:60 years & older Dementia 19 FATHER, Onset:60 years & older Diabetes mellitus 19 FATHER, Onset:50's - 60 No Pertinent Family Hx Physical Exam Vital Signs Vital Signs - First Documented 04/25/20 11:50 Temp 36.1 Pulse 74 Resp 18 B/P (MAP) 162/92 (115) Pulse Ox 96 Capillary Refill : Height/Weight/BMI Height: '" Weight: lbs. oz. kg; 19.43 BMI Method: General Appearance: WD/WN, no apparent distress Neck: non-tender, full range of motion Respiratory: no respiratory distress, no accessory muscle use Gastrointestinal: normal bowel sounds, non tender, soft Extremities: normal range of motion, non-tender Neurologic/Psychiatric: alert, normal mood/affect, oriented x 3 Skin: normal color, warm/dry Progress/Results/Core Measures Results/Orders Lab Results Laboratory Tests Test 04/25/20 11:55 04/25/20 14:20 04/25/20 14:48 Range/Units White Blood Count 14.8 H 4.3-11.0 10^3/uL Red Blood Count 3.91 L 4.30-5.52 10^6/uL Hemoglobin 11.7 L 13.3-17.7 g/dL Hematocrit 35 L 40-54 % Mean Corpuscular Volume 89 80-99 fL Mean Corpuscular Hemoglobin 30 25-34 pg Mean Corpuscular Hemoglobin Concent 34 32-36 g/dL Red Cell Distribution Width 13.1 10.0-14.5 % Platelet Count 224 130-400 10^3/uL Mean Platelet Volume 9.9 9.0-12.2 fL Immature Granulocyte % (Auto) 0 % Neutrophils (%) (Auto) 85 H 42-75 % Lymphocytes (%) (Auto) 8 L 12-44 % Monocytes (%) (Auto) 4 0-12 % Eosinophils (%) (Auto) 2 0-10 % Basophils (%) (Auto) 1 0-10 % Neutrophils # (Auto) 12.7 H 1.8-7.8 10^3/uL Lymphocytes # (Auto) 1.2 1.0-4.0 10^3/uL Monocytes # (Auto) 0.6 0.0-1.0 10^3/uL Eosinophils # (Auto) 0.3 0.0-0.3 10^3/uL Basophils # (Auto) 0.1 0.0-0.1 10^3/uL Immature Granulocyte # (Auto) 0.1 0.0-0.1 10^3/uL Neutrophils % (Manual) 79 % Lymphocytes % (Manual) 15 % Monocytes % (Manual) 4 % Eosinophils % (Manual) 2 % Blood Morphology Comment NORMAL Sodium Level 139 135-145 MMOL/L Potassium Level 6.0 H 3.6-5.0 MMOL/L Chloride Level 103 98-107 MMOL/L Carbon Dioxide Level 24 21-32 MMOL/L Anion Gap 12 5-14 MMOL/L Blood Urea Nitrogen 37 H 7-18 MG/DL Creatinine 2.04 H 0.60-1.30 MG/DL Estimat Glomerular Filtration Rate 33 BUN/Creatinine Ratio 18 Glucose Level 214 H 70-105 MG/DL Calcium Level 9.5 8.5-10.1 MG/DL Corrected Calcium 9.7 8.5-10.1 MG/DL Total Bilirubin 0.2 0.1-1.0 MG/DL Aspartate Amino Transf (AST/SGOT) 12 5-34 U/L Alanine Aminotransferase (ALT/SGPT) 16 0-55 U/L Alkaline Phosphatase 133 40-136 U/L Total Protein 7.5 6.4-8.2 GM/DL Albumin 3.8 3.2-4.5 GM/DL Lipase 29 8-78 U/L Urine Color YELLOW Urine Clarity SL CLOUDY Urine pH 6.0 5-9 Urine Specific [place] 1.020 1.016-1.022 Urine Protein TRACE H NEGATIVE Urine Glucose (UA) NEGATIVE NEGATIVE Urine Ketones NEGATIVE NEGATIVE Urine Nitrite NEGATIVE NEGATIVE Urine Bilirubin NEGATIVE NEGATIVE Urine Urobilinogen 0.2 < = 1.0 MG/DL Urine Leukocyte Esterase 2+ H NEGATIVE Urine RBC (Auto) 3+ H NEGATIVE Urine RBC 50-100 H /HPF Urine WBC 25-50 H /HPF Urine Crystals NONE /LPF Urine Bacteria MODERATE H /HPF Urine Casts NONE /LPF Urine Mucus NEGATIVE /LPF Urine Yeast MODERATE H /HPF Urine Culture Indicated YES My Orders Orders - ARUNA NUGENT NEON GLASS BENDER Cbc With Automated Diff (04/25/20 12:03) Comprehensive Metabolic Panel (04/25/20 12:03) Ua Culture If Indicated (04/25/20 12:03) Lipase (04/25/20 12:03) Ed Iv/Invasive Line Start (04/25/20 12:03) Fentanyl Injection (Sublimaze Injection (04/25/20 12:15) Ondansetron Injection (Zofran Injectio (04/25/20 12:15) Ns Iv 1000 Ml (Sodium Chloride 0.9%) (04/25/20 12:15) Ct Abd/Pelvis Wo(Kidney Stone) (04/25/20 12:04) Manual Differential (04/25/20 11:55) Ekg Tracing (04/25/20 12:23) Insulin (Regular) Human (Novolin R (Per (04/25/20 12:45) D50w (Emergency) Syringe (Dextrose 50% 5 (04/25/20 12:45) Sodium Polystyrene Sulfonate (Kayexalate (04/25/20 12:45) Furosemide Injection (Lasix Injection) (04/25/20 12:45) Ns Iv 500 Ml (Sodium Chloride 0.9%) (04/25/20 14:00) Urine Culture (04/25/20 14:20) Basic Metabolic Panel (04/25/20 14:48) Ceftriaxone For Iv Use (Rocephin For I (04/25/20 15:00) Fluconazole Tablet (Ed Only) (Diflucan T (04/25/20 15:00) Medications Given in ED Current Medications Medications Dose Ordered Sig/Wood Route Start Time Stop Time Status Last Admin Dose Admin Fentanyl Citrate 50 mcg ONCE ONCE IVP 04/25/20 12:15 04/25/20 12:16 DC 04/25/20 12:36 50 MCG Furosemide 20 mg ONCE ONCE IVP 04/25/20 12:45 04/25/20 12:46 DC 04/25/20 12:56 20 MG Ondansetron HCl 8 mg ONCE ONCE IVP 04/25/20 12:15 04/25/20 12:16 DC 04/25/20 12:36 8 MG Vital Signs/I&O 04/25/20 11:50 Temp 36.1 Pulse 74 Resp 18 B/P (MAP) 162/92 (115) Pulse Ox 96 Diagnostic Imaging Diagonstic Imaging: CT Comments NAME: FLORENCIO W[facility] REC#: [id number] PT STATUS: REG ER : 1950 PHYSICIAN: ARUNA NUGENT APRN ADMIT DATE: 04/25/20/ER Draft Date of Exam:04/25/20 CT ABD/PELVIS WO(KIDNEY STONE) PROCEDURE: CT urinary tract, rule out kidney stone. TECHNIQUE: Multiple contiguous axial images were obtained through the abdomen and pelvis without the use of intravenous contrast. Auto Exposure Controls were utilized during the CT exam to meet ALARA standards for radiation dose reduction. INDICATION: Left flank pain There are no prior CT examinations available for comparison. The plain film examination of the abdomen performed on 03/24/2020 noted a significant amount of fecal material throughout the colon. On this exam there does appear to be a fecal impaction. There is also at least a moderate amount of fecal material throughout much of the colon. Furthermore the images through the low pelvis do show that there is an 8.4 mm calcification within the bladder near the ureterovesical junction on the left. This could possibly relate to a recently passed calculus in the left collecting system as the left ureter and left renal pelvis do seem slightly dilated compared to the right. There is also somewhat greater perinephric stranding about the left kidney than the right kidney. This calcification could also be related to a bladder calculus. The bladder itself is not well distended and difficult to assess. There is no obvious bladder abnormality evident. The thickened appearance of bladder wall is more likely due to incomplete distention than to cystitis. Clinical followup is recommended. The prostate gland does not appear to be enlarged. The appendix was visualized and is not abnormally thickened. The stomach is partially filled with fluid and difficult to assess. There is no sign of cholelithiasis or acute cholecystitis. The gallbladder is distended. If further evaluation of the gallbladder is desired, ultrasound would be recommended. The liver, spleen, adrenals, pancreas, aorta and inferior vena cava show no sign of an acute abnormality. The images through the left lung base do show a vague alveolar/interstitial infiltrate in the left lower lobe. This does suggest mild pneumonia/atelectasis. The right lung base is generally clear. The bone windows are unremarkable for an acute fracture or for destructive lesion. There does appear to be a long-standing wedge compression deformity of T8. IMPRESSION: 1. There is an 8.4 mm calculus within the bladder near the ureteral vesicle junction on the left. Whether this represents a bladder calculus or recently passed calculus within the left collecting system is not certain. Clinical followup is recommended. 2. The thickened appearance of the bladder wall may be secondary to incomplete distention. There could also be an amount of cystitis present. 3. There is no acute abnormality of the abdomen or pelvis noted otherwise. 4. There is a fecal impaction. 5. There is mild left lower lobe pneumonia/atelectasis. Dictated on workstation # [id number] Dict: 04/25/20 1255 Trans: 04/25/20 1308 CV [id number] Interpreted by: LEANDER CHAPA MD Electronically signed by: Departure Impression Primary Impression: Urinary tract infection Additional Impressions: Hyperkalemia CKD (chronic kidney disease) Fecal impaction in rectum Disposition: HOME, SELF-CARE Condition: Stable Departure-Patient Inst. Decision time for Depature: 14:59 Referrals: SINCERE ROBERTS DO (PCP) Primary Care Physician Patient Instructions: No Instuctions Given Add. Discharge Instructions: 1. Use the Fleet's enema when you get back to the facility. Patient can give this to himself if he would like to. Antibiotics as directed. Stop the Aldactone and replace it with Lasix. Scripts Na Phos,M-B/Na Phos,Di-Ba (Fleet Enema) 133 Ml Enema 133 ML RC ONCE, #1 EA Prov: ARUNA NUGENT APRN 04/25/20 Cefuroxime Axetil (Cefuroxime) 250 Mg Tablet 250 MG PO BID, #10 TAB Prov: ARUNA NUGENT APRN 04/25/20 Furosemide (Lasix) 20 Mg Tablet 20 MG PO DAILY, #10 TAB Prov: ARUNA NUGENT APRN 04/25/20 ARUNA NUGENT APRN Apr 25, 2020 12:07
[2020-04-25 12:10] LABS: BASOPHILS # (AUTO) 0.1 10^3/uL (0.0-0.1); BASOPHILS % (AUTO) 1 % (0-10); EOSINOPHILS # (AUTO) 0.3 10^3/uL (0.0-0.3); EOSINOPHILS % (AUTO) 2 % (0-10); HEMATOCRIT 35 % (40-54); HEMOGLOBIN 11.7 g/dL (13.3-17.7); LYMPHOCYTES # (AUTO) 1.2 10^3/uL (1.0-4.0); LYMPHOCYTES % (AUTO) 8 % (12-44); MEAN CORPUSCULAR HEMOGLOBIN 30 pg (25-34); MEAN CORPUSCULAR HGB CONC 34 g/dL (32-36); MEAN CORPUSCULAR VOLUME 89 fL (80-99); MEAN PLATELET VOLUME 9.9 fL (9.0-12.2); MONOCYTES # (AUTO) 0.6 10^3/uL (0.0-1.0); MONOCYTES % (AUTO) 4 % (0-12); NEUTROPHILS # (AUTO) 12.7 10^3/uL (1.8-7.8); NEUTROPHILS % (AUTO) 85 % (42-75); PLATELET COUNT 224 10^3/uL (130-400); WHITE BLOOD COUNT 14.8 10^3/uL (4.3-11.0)
[2020-04-25] MEDS ORDERED: NS IV 1000 ML 1,000 ML IV SCH (12:15)
[2020-04-25] MEDS ORDERED: fentaNYL INJECTION 100 MCG/2 ML AMP IVP ONE (12:15)
[2020-04-25] MEDS ORDERED: ONDANSETRON 4 MG/2 ML (SDV) Z0FRAN IVP ONE (12:15)
[2020-04-25 12:21] LABS: EOSINOPHILS % (MANUAL) 2 %; LYMPHOCYTES % (MANUAL) 15 %; MONOCYTES % (MANUAL) 4 %; NEUTROPHILS % (MANUAL) 79 %; RBC MORPH NORMAL
[2020-04-25 12:22] LABS: ALBUMIN 3.8 GM/DL (3.2-4.5)
[2020-04-25 12:23] LABS: CALCIUM 9.5 MG/DL (8.5-10.1)
[2020-04-25 12:24] LABS: TOTAL PROTEIN 7.5 GM/DL (6.4-8.2)
[2020-04-25 12:26] LABS: BILIRUBIN,TOTAL 0.2 MG/DL (0.1-1.0)
[2020-04-25 12:28] LABS: CREATININE SERUM 2.04 MG/DL (0.60-1.30)
[2020-04-25] MEDS ORDERED: SOD POLYSTERENE 15 GM/60 ML (KAYEXALATE) UNIT DOSE PO ONE (12:45)
[2020-04-25] MEDS ORDERED: FUROSEMIDE 40 MG/4 ML INJ (LASIX) IVP ONE (12:45)
[2020-04-25] MEDS ORDERED: inSUlin (REGULAR) HUMAN 1 UNIT/0.01 ML (CHARGE PER UNIT) IV SCH (12:45)
[2020-04-25] MEDS ORDERED: DEXTROSE 50% 50 ML (IMS) SYR IV ONE (12:45)
--- NOTE | 2020-04-25 13:10 | Diagnostic Imaging Report ---
PROCEDURE: CT urinary tract, rule out kidney stone. TECHNIQUE: Multiple contiguous axial images were obtained through the abdomen and pelvis without the use of intravenous contrast. Auto Exposure Controls were utilized during the CT exam to meet ALARA standards for radiation dose reduction. INDICATION: Left flank pain There are no prior CT examinations available for comparison. The plain film examination of the abdomen performed on 03/24/2020 noted a significant amount of fecal material throughout the colon. On this exam there does appear to be a fecal impaction. There is also at least a moderate amount of fecal material throughout much of the colon. Furthermore the images through the low pelvis do show that there is an 8.4 mm calcification within the bladder near the ureterovesical junction on the left. This could possibly relate to a recently passed calculus in the left collecting system as the left ureter and left renal pelvis do seem slightly dilated compared to the right. There is also somewhat greater perinephric stranding about the left kidney than the right kidney. This calcification could also be related to a bladder calculus. The bladder itself is not well distended and difficult to assess. There is no obvious bladder abnormality evident. The thickened appearance of bladder wall is more likely due to incomplete distention than to cystitis. Clinical followup is recommended. The prostate gland does not appear to be enlarged. The appendix was visualized and is not abnormally thickened. The stomach is partially filled with fluid and difficult to assess. There is no sign of cholelithiasis or acute cholecystitis. The gallbladder is distended. If further evaluation of the gallbladder is desired, ultrasound would be recommended. The liver, spleen, adrenals, pancreas, aorta and inferior vena cava show no sign of an acute abnormality. The images through the left lung base do show a vague alveolar/interstitial infiltrate in the left lower lobe. This does suggest mild pneumonia/atelectasis. The right lung base is generally clear. The bone windows are unremarkable for an acute fracture or for destructive lesion. There does appear to be a long-standing wedge compression deformity of T8. IMPRESSION: 1. There is an 8.4 mm calculus within the bladder near the ureteral vesicle junction on the left. Whether this represents a bladder calculus or recently passed calculus from the left collecting system is not certain. Clinical followup is recommended. 2. The thickened appearance of the bladder wall may be secondary to incomplete distention. There could also be an amount of cystitis present. 3. There is no acute abnormality of the abdomen or pelvis noted otherwise. 4. There is a fecal impaction. 5. There is mild left lower lobe pneumonia/atelectasis. Dictated by: Dictated on workstation # [id number]
[2020-04-25] MEDS ORDERED: NS IV 500 ML 500 ML IV SCH (14:00)
[2020-04-25 14:31] LABS: BILIRUBIN,URINE NEGATIVE (NEGATIVE); CLARITY,URINE SL CLOUDY; COLOR,URINE YELLOW; GLUCOSE, URINE (UA) NEGATIVE (NEGATIVE); KETONES,URINE NEGATIVE (NEGATIVE); LEUKOCYTE ESTERASE ,URINE 2+ (NEGATIVE); NITRITE,URINE NEGATIVE (NEGATIVE); PROTEIN,URINE TRACE (NEGATIVE)
[2020-04-25 14:48] LABS: BACTERIA,URINE MODERATE /HPF; RBC,URINE 50-100 /HPF; WBC,URINE 25-50 /HPF; YEAST,URINE MODERATE /HPF
--- NOTE | 2020-04-25 14:59 | NUR ---
[facility] NOTIFIED OF PT BEING DISMISSED
[2020-04-25] MEDS ORDERED: cefTRIAXone FOR IV USE 1,000 MG in WATER (STERILE) FOR INJECTION 10 ML IV ONE (15:00)
[2020-04-25] MEDS ORDERED: FLUCONAZOLE 150 MG TABLET (ED ONLY) PO ONE (15:00)
[2020-04-25] MEDS ORDERED: NA P133E22 RC (15:02)
[2020-04-25] MEDS ORDERED: CEFU250T80 PO (15:02)
[2020-04-25] MEDS ORDERED: FURO-125 PO (15:02)
[2020-04-25 15:12] LABS: CALCIUM 8.5 MG/DL (8.5-10.1); CREATININE SERUM 1.9 MG/DL (0.60-1.30); POTASSIUM 5.7 MMOL/L (3.6-5.0)
[2020-04-25 15:23] VITALS: BP 124/80
== END 2020-04-25 15:26 | disposition home or self-care (01) ==
LOC: EDUNIT# 11:49 → ER 11:51
DX: N39.0 Urinary tract infection, site not specified (principal); E87.5 Hyperkalemia; N18.9 Chronic kidney disease, unspecified; K56.41 Fecal impaction; E11.22 Type 2 diabetes mellitus with diabetic chronic kidney disease; I48.91 Unspecified atrial fibrillation; F41.9 Anxiety disorder, unspecified; K21.9 Gastro-esophageal reflux disease without esophagitis; Z83.3 Family history of diabetes mellitus; Z79.4 Long term (current) use of insulin; Z79.82 Long term (current) use of aspirin; Z79.01 Long term (current) use of anticoagulants
CPT/HCPCS: 36415; 74176; 80048; 80053; 81000; 83690; 85007; 85027; 87088

== ENCOUNTER 2020-04-27 10:38 | Outpatient (RCR) | payer MEDICARE, OTHER ==
[~2020-04-27 10:38] MED LIST changes: +CEFU250T80 PO; +FURO-125 PO; +NA P133E22 RC
== END 2020-04-27 10:40 | disposition home or self-care (01) ==
LOC: PREOP 10:38
PROVIDERS: ATTEND Surgery
DX: Z01.818 Encounter for other preprocedural examination (principal)

== ENCOUNTER 2020-04-30 12:02 | Day surgery (SDC) | payer MEDICARE, OTHER ==
[~2020-04-30] VITALS: Ht 190 cm; Wt 72.6 kg
[2020-04-30] VITALS (7 sets, daily range): BP systolic 92–133; BP diastolic 46–70
[~2020-04-30 12:02] MED LIST changes: +LACTATED RINGERS 1,000 ML IV STA
[2020-04-30] MEDS ORDERED: LACTATED RINGERS 1,000 ML IV ONE (12:15)
[2020-04-30] MEDS ORDERED: HURRICAINE EXT TUBE (BENZOCAINE) XX PRN (12:15)
[2020-04-30] MEDS ORDERED: PROPOFOL INJECTION 50 ML IV ONE (13:19)
[2020-04-30] MEDS ORDERED: MIDAZOLAM 2 MG/2 ML (VERSED) VIAL ONE (13:19)
--- NOTE | 2020-04-30 13:23 | Progress Note-Pre Operative ---
Pre-Operative Progress Note H&P Reviewed The H&P was reviewed, patient examined and no changes noted. Date Seen by Provider: Apr 30, 2020 Time Seen by Provider: 13:22 Date H&P Reviewed: Apr 30, 2020 Time H&P Reviewed: 13:22 Pre-Operative Diagnosis: hematemesis, blood in stool CAMI FOX DO Apr 30, 2020 13:22
--- NOTE | 2020-04-30 13:42 | Progress Note-Post Operative ---
Post-Operative Progess Note Surgeon (s)/Sql Server Architect (s) Surgeon CAMI FOX DO Sql Server Architect: na Pre-Operative Diagnosis hematemesis, blood in stool Post-Operative Diagnosis small hiatal hernia, gastritis Procedure & Operative Findings Date of Procedure 04/30/20 Procedure Performed/Findings egd c biopsies Anesthesia Type per supervisor mapping Estimated Blood Loss Estimated blood loss (mL): scant Specimens/Packing Specimens Removed body, cardia of stomach CAMI FOX DO Apr 30, 2020 13:42
[2020-04-30] MEDS ORDERED: SUCR1TAB36 PO (13:44)
--- NOTE | 2020-04-30 13:44 | Discharge Inst-Simple/Standard ---
Discharge Inst-Standard Discharge Medications New, Converted or Re-Newed RX: Transmitted to Pharmacy Patient Instructions/Follow Up Plan of Care/Instructions/FU: 3 weeks rush Activity as Tolerated: Yes Discharge Diet: Regular Diet CAMI FOX DO Apr 30, 2020 13:44
--- NOTE | 2020-04-30 22:53 | OPERATIVE REPORT ---
DATE OF SERVICE: 04/30/2020 PREOPERATIVE DIAGNOSIS: Hematemesis, blood in stool. POSTOPERATIVE DIAGNOSES: Small hiatal hernia, gastritis. SURGEON: Cami Henderson DO ANESTHESIA: Per MACHINE HEEL SEAT LASTER. PROCEDURE: EGD with biopsies. INDICATIONS: The patient is a 69-year-old male who had previous episode of hematemesis and blood in stool. He understands risks and benefits of procedure and wished to proceed with procedure. Consent was signed in the chart. DESCRIPTION OF PROCEDURE: The patient was taken to the endoscopy suite, placed in left lateral recumbent position. Timeout was performed. Scope was inserted in mouth, down the esophagus, stomach and into the duodenum without difficulty. There were no polyps, masses or ulcerations. Scope was slowly retracted back into the stomach where it was further insufflated. Antrum had normal appearance. No polyps, masses or ulcerations. In the body significant inflammation present along up in the cardia region. Biopsies of the cardia and body were obtained. Scope was returned to its normal position, slowly withdrawn to distal esophagus, which had normal appearance. No polyps, masses or ulcerations. Scope was slowly retracted back until completely removed. The patient tolerated procedure well without any complications. He was taken to recovery room in stable condition. The patient was scheduled for colonoscopy; however, prep was not adequate, we will plan on scheduling a later date. RECOMMENDATIONS: We will also add Carafate 1 gram four times a day to his current medication regimen. The patient will follow up in approximately 3 weeks to follow up on biopsies. Job ID: [id number] DocumentID: [id number] Dictated Date: 04/30/2020 15:07:41 Blueprint Trimmer Date: 04/30/2020 22:52:21 Dictated By: CAMI HENDERSON DO
== END 2020-04-30 14:23 | disposition home or self-care (01) ==
LOC: ENDO 12:02
PROVIDERS: ATTEND Surgery
DX: K29.50 Unspecified chronic gastritis without bleeding (principal); K44.9 Diaphragmatic hernia without obstruction or gangrene; K92.1 Melena; K92.0 Hematemesis; I48.91 Unspecified atrial fibrillation; F41.9 Anxiety disorder, unspecified; K21.9 Gastro-esophageal reflux disease without esophagitis; E11.9 Type 2 diabetes mellitus without complications; F17.210 Nicotine dependence, cigarettes, uncomplicated; Z79.899 Other long term (current) drug therapy
CPT/HCPCS: 82962; 88305; 88342

== ENCOUNTER → 2020-05-10 | Outpatient (CLI) | payer MEDICARE, OTHER ==
[~2020-05-10] MED LIST changes: -LACTATED RINGERS 1,000 ML IV STA; +SUCR1TAB36 PO
== END ==
PROVIDERS: ATTEND Family Medicine
DX: Z01.89 Encounter for other specified special examinations (principal)
CPT/HCPCS: 82274

== ENCOUNTER 2021-01-27 09:30 | Emergency (ER) | payer MEDICARE, OTHER ==
[~2021-01-27] VITALS: Ht 193 cm; Wt 77.1 kg
[~2021-01-27 09:30] MED LIST changes: +MIRT-68 PO; -MIRT15TA6 PO
--- NOTE | 2021-01-27 11:18 | ED GU-Male ---
General Chief Complaint: Catheter/Drain/Tube Problems Stated Complaint: CATHETER PULLED OUT;BLEEDING Nursing Triage Note: Pt to ED in wheelchair from [facility]. Pt reports having suprapubic catheter placed on Monday in [place] for "prostate probelms." Pt reports noticing tubing was pulled out some time between 0300 and 0800 this morning. Pt has R sided below knee amputation. Source: patient Exam Limitations: no limitations History of Present Illness Date Seen by Provider: Jan 27, 2021 Time Seen by Provider: 10:15 Initial Comments Patient to the ER by private conveyance with chief complaint that he inadvertently dislodged his suprapubic catheter that was placed on Monday at [facility]. Having some blood in the urine still. He denies any fevers chills nausea vomiting diarrhea. Allergies and Home Medications Allergies Coded Allergies: No Known Drug Allergies (Unverified , 03/24/20) Home Medications Amiodarone HCl 200 Mg Tablet, 200 MG PO DAILY, (Reported) HOLD MEDICATION IS BP <100/60 OR PULSE <60 Amlodipine Besylate 10 Mg Tablet, 10 MG PO DAILY, (Reported) HOLD MEDICATION IS BP <100/60 OR PULSE <60 Ascorbic Acid 500 Mg Tablet, 500 MG PO DAILY, (Reported) Aspirin 81 Mg Tab.chew, 81 MG PO BID, (Reported) Bisacodyl 10 Mg Supp.rect, 10 MG RC Q12H PRN for CONSTIPATION-4TH LINE, (Reported) Diltiazem HCl 180 Mg Capsule.er, 180 MG PO DAILY, (Reported) Docusate Sodium 100 Mg Capsule, 100 MG PO BID, (Reported) Ferrous Sulfate 325 Mg Tablet, 325 MG PO BID, (Reported) Furosemide 20 Mg Tablet, 20 MG PO DAILY Prescribed by: ARUNA NUGENT on 04/25/20 1502 Hydrocortisone Acetate 25 Mg Supp.rect, 25 MG RC Q12H PRN for HEMMORRHOID DISCOMFORT, (Reported) Insulin Aspart 100 Unit/1 Ml Susp, UNIT SQ ACHS, (Reported) 0-60= 0u initiate hypoglycemia protocol and notify PCP; 61-150= 0u 151-200= 4u 201-250= 6u 251-300= 8u 301-350 = 10u 351-400= 12u 401+ = call PCP Insulin Detemir 100 Unit/1 Ml Insuln.pen, 5 UNIT SQ BID, (Reported) L. Acidophilus/Bulgaricus 1 Each Tab.chew, 1 EACH PO BID, (Reported) Metoprolol Tartrate 50 Mg Tablet, 50 MG PO DAILY, (Reported) HOLD MEDICATION IS BP <100/60 OR PULSE <60 Mirtazapine 15 Mg Tablet, 15 MG PO HS, (Reported) Multivit-Min/Iron/Folic/Vit K1 1 Each Tab.chew, 1 EACH PO DAILY, (Reported) Na Phos,M-B/Na Phos,Di-Ba 133 Ml Enema, 133 ML RC ONCE Prescribed by: ARUNA NUGENT on 04/25/20 1502 Pantoprazole Sodium 40 Mg Tablet.dr, 40 MG PO BID Prescribed by: ENZO HASKINS on 03/27/20 1024 Polyethylene Glycol 3350 17 Gm Powd.pack, 17 GM PO BID, (Reported) Polyethylene Glycol 3350 17 Gm Powd.pack, 17 GM PO DAILY PRN for CONSTIPATION- 1ST LINE, (Reported) Rivaroxaban 20 Mg Tablet, 20 MG PO DAILY, (Reported) Simvastatin 20 Mg Tablet, 20 MG PO HS, (Reported) Solifenacin Succinate 10 Mg Tablet, 10 MG PO HS, (Reported) Spironolactone 50 Mg Tablet, 50 MG PO DAILY, (Reported) Sucralfate 1 Gm Tablet, 1 GM PO QID Prescribed by: CMAI FOX on 04/30/20 1344 Tamsulosin HCl 0.4 Mg Cap, 0.4 MG PO 1600, (Reported) Tramadol HCl 50 Mg Tablet, 50 MG PO Q4H PRN for PAIN-MODERATE (5-7), (Reported) Venlafaxine HCl 75 Mg Cap.er.24h, 75 MG PO DAILY, (Reported) Zinc 50 Mg Tablet, 50 MG PO DAILY, (Reported) Patient Home Medication List Home Medication List Reviewed: Yes Review of Systems Review of Systems Constitutional: No chills, No diaphoresis EENTM: No ear pain, No mouth pain Respiratory: No cough, No short of breath Cardiovascular: No chest pain, No palpitations Gastrointestinal: No abdominal pain, No constipation, No nausea, No vomiting Genitourinary: see HPI; denies dysuria Musculoskeletal: No back pain, No joint pain All Other Systemes Reviewed Negative Unless Noted: Yes Past Nwwmqip-Yoovoz-Bbnxyb Hx Patient Social History Tobacco Use?: No Substance use?: No Alcohol Use?: No Pt feels they are or have been: No Seasonal Allergies Seasonal Allergies: No Past Medical History Surgeries: Yes Adenoidectomy, Tonsillectomy, Vasectomy Cardiac: Yes Atrial Fibrillation Gastrointestinal: Yes Gastroesophageal Reflux Musculoskeletal: Yes Amputee Endocrine: Yes Diabetes, Insulin dep HEENT: No Cancer: No Psychosocial: Yes Anxiety Blood Disorders: Yes (Anemia ) Family Medical History Alzheimer's disease 19 FATHER, Onset:60 years & older Dementia 19 FATHER, Onset:60 years & older Diabetes mellitus 19 FATHER, Onset:50's - 60 No Pertinent Family Hx Physical Exam Vital Signs Vital Signs - First Documented 01/27/21 10:10 Temp 35.9 Pulse 68 Resp 20 B/P (MAP) 116/53 (74) Pulse Ox 100 O2 Delivery Room Air Capillary Refill : Less Than 3 Seconds Height, Weight, BMI Height: '" Weight: lbs. oz. kg; 20.00 BMI Method: General Appearance: WD/WN, no apparent distress HEENT: normal ENT inspection, pharynx normal Neck: full range of motion, normal inspection Cardiovascular: normal peripheral pulses, regular rate, rhythm Respiratory: no respiratory distress, no accessory muscle use Gastrointestinal: normal bowel sounds, non tender, soft, other (Scant amount of sanguinous discharge at the site of a recent suprapubic catheter ostomy with a displaced catheter still stitched to the skin.) Neurologic/Psychiatric: alert, normal mood/affect, oriented x 3 Skin: normal color, warm/dry Procedures/Interventions Progress We cut the 2 sutures using a suture removal kit and cleaned the site thoroughly with chlorhexidine and sterile saline. I then replaced a 16 [place] Valle catheter and inflated the 10 cc balloon easily. The patient had no discomfort. We were able to then get urine out of the catheter easily and sent a sample to the lab. Progress/Results/Core Measures Suspected Sepsis SIRS Temperature: Pulse: 68 Respiratory Rate: 20 Blood Pressure 116 /53 Mean: 74 Results/Orders Lab Results Laboratory Tests Test 01/27/21 11:20 Range/Units Urine Color RED H Urine Clarity CLOUDY Urine pH 6.5 5-9 Urine Specific [place] 1.015 L 1.016-1.022 Urine Protein 3+ H NEGATIVE Urine Glucose (UA) TRACE H NEGATIVE Urine Ketones 1+ H NEGATIVE Urine Nitrite POSITIVE H NEGATIVE Urine Bilirubin 3+ H NEGATIVE Urine Urobilinogen >=8.0 < = 1.0 MG/DL Urine Leukocyte Esterase 3+ H NEGATIVE Urine RBC (Auto) 3+ H NEGATIVE Urine RBC >100 H /HPF Urine WBC >100 H /HPF Urine Squamous Epithelial Cells NONE /HPF Urine Renal Epithelial Cells NONE /HPF Urine Crystals NONE /LPF Urine Bacteria NEGATIVE /HPF Urine Casts NONE /LPF Urine Mucus NEGATIVE /LPF Urine Culture Indicated YES My Orders Orders - FERNANDEZ COLVIN Ua Culture If Indicated (01/27/21 10:08) Urine Culture (01/27/21 11:20) Vital Signs/I&O 01/27/21 10:10 Temp 35.9 Pulse 68 Resp 20 B/P (MAP) 116/53 (74) Pulse Ox 100 O2 Delivery Room Air Capillary Refill : Less Than 3 Seconds Blood Pressure Mean: 74 Progress Note : Time: 11:51 Progress Note We are able to keep site open by placing a Valle catheter made contact with Dr. Nair's office spoke to his nurse who is already spoken to the surgeon about the case. Plan is to see him next week in the clinic. Were going to start the patient on a dose of Rocephin today and cefdinir twice a day for the next 5 days. Departure Impression Primary Impression: Suprapubic catheter dysfunction Qualified Codes: T83.010A - Breakdown (mechanical) of cystostomy catheter, initial encounter Additional Impression: Urinary tract infection associated with cystostomy catheter Qualified Codes: T83.510A - Infection and inflammatory reaction due to cystostomy catheter, initial encounter; N39.0 - Urinary tract infection, site not specified Disposition: 01 HOME, SELF-CARE Condition: Stable Departure-Patient Inst. Decision time for Depature: 11:53 Referrals: SINCERE ROBERTS DO (PCP/Family) Primary Care Physician Patient Instructions: How to Prevent Catheter Associated Urinary Tract Infections Add. Discharge Instructions: Drink plenty of fluids. Follow-up with the urologist, Dr. Nair next week in his clinic by calling for an appointment. Start on 01/28/2021: Cefdinir 1 capsule twice a day with food for the next 5 days. Return to the nearest ER for significant worsening symptoms. All discharge instructions reviewed with patient and/or family. Voiced understanding. Scripts Cefdinir (Cefdinir) 300 Mg Capsule 300 MG PO BID for 5 Days, #10 CAP 0 Refills Prov: FERNANDEZ COLVIN 01/27/21 FERNANDEZ COLVIN Jan 27, 2021 11:17
[2021-01-27 11:31] LABS: CLARITY,URINE CLOUDY; COLOR,URINE RED; GLUCOSE, URINE (UA) TRACE (NEGATIVE); KETONES,URINE 1+ (NEGATIVE); LEUKOCYTE ESTERASE ,URINE 3+ (NEGATIVE); NITRITE,URINE POSITIVE (NEGATIVE); PH,URINE 6.5 (5-9); PROTEIN,URINE 3+ (NEGATIVE)
[2021-01-27 11:39] LABS: BACTERIA,URINE NEGATIVE /HPF; RBC,URINE >100 /HPF; WBC,URINE >100 /HPF
[2021-01-27 11:40] LABS: BILIRUBIN,URINE 3+ (NEGATIVE)
[2021-01-27] MEDS ORDERED: CEFD300C3 PO (11:54)
[2021-01-27] MEDS ORDERED: LIDOCAINE 1% INJ 20 ML 20 ML VIAL INJ ONE (12:00)
[2021-01-27] MEDS ORDERED: cefTRIAXone 1,000 MG VIAL IM ONE (12:00)
[2021-01-27 12:13] VITALS: BP 130/72
--- OUTSIDE RECORDS SUMMARY | 2021-01-30 02:49 | XMS REPORT | Clinical Summary ---
Author Author [facility] Organization [facility] Address Unknown Phone Unavailable Care Team Providers Care Gallery Or Museum Attendant Name Role Phone No Pcp, Na PCP Unavailable Source Comments Some departments are not documenting in the electronic medical record. If you d o not see the information that you expected, contact [facility] Information Management department at [phone] for further assistan ce in locating additional records.[facility] Allergies No Known Active Allergies Medications End Date Status Medication Sig Dispensed Refills Start Date Active lisinopril (PRINIVIL; Take 1 Tab by 90 Tab 3 ZESTRIL) 5 mg tablet mouth daily. 7 Active fish oil- omega 3-DHA/EPA Take 2 Caps 120 Cap 2 300/1,000 mg capsule by mouth 7 twice daily with meals. Please recommend OTC product if not covered by insurance Active aspirin 81 mg chewable Chew 1 Tab by 0 01 tablet mouth daily. 7 Take with food. Active insulin aspart (NOVOLOG Give 5 units 3 Package 3 0 FLEXPEN) 100 unit/mL w/ meals. 7 injection PEN Check blood sugar before eating and follow sliding scale as needed Glucose level: Insulin units Up to 140 none 141 to 180 1 181 to 220 2 221 to 260 3 261 to 300 4 301 to 350 5 351 to 400 6 >400 7 Active insulin detemir(+) Inject 22 3 box 3 01 (LEVEMIR FLEXTOUCH) 100 Units under 7 unit/mL (3 mL) injection the skin pen daily with dinner. Active Problems Problem Noted Date Ischemic stroke 11/25/2016 Medical History Medical History Date Comments Diabetes (HCC) HTN (hypertension) CVA (cerebral vascular accident) (HCC) Social History Date Tobacco Use Types Packs/Day Years Used Never Smoker Sex Assigned at Date Recorded Not on file Last Filed Vital Signs Reading Time Taken Comments Vital Sign 119/69 11/28/2016 10:52 AM CDT Blood Pressure 46 11/28/2016 10:52 AM CDT Pulse 37.2 C (98.9 F) 11/28/2016 10:52 AM CDT Temperature - - Respiratory Rate 99% 11/28/2016 10:52 AM CDT Oxygen Saturation - - Inhaled Oxygen Concentration 83.9 kg (184 lb 15.5 oz) 11/27/2016 4:20 AM CDT Weight 193 cm (6' 4") 11/26/2016 8:45 AM CDT Height 22.51 11/26/2016 8:45 AM CDT Body Mass Index Plan of Treatment Health Maintenance Due Date Last Done Comments DTAP/TDAP VACCINES (1 - 12/30/1969 Tdap) HEPATITIS C SCREENING 12/30/1969 PHYSICAL (COMPREHENSIVE) 12/30/1969 EXAM COLORECTAL CANCER 12/30/2001 SCREENING SHINGLES RECOMBINANT 12/30/2001 VACCINE (1 of 2) PNEUMONIA (PPSV23) 12/30/2016 VACCINE (1 of 1 - PPSV23) INFLUENZA VACCINE 03/26/2021 Results Not on filefrom Last 3 Months Insurance Type Payer Benefit Subscriber ID Effective Phone Address Plan / Dates Group PPO BCBS [facility] [id number] 2016-P [facility] [place] [phone] Advance Directives 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 needed
--- OUTSIDE RECORDS SUMMARY | 2021-01-30 02:49 | XMS REPORT ---
Author Rangel Barnes Organization [facility] Address [address] [place] [id number] Care Team Providers Care Nutritional Services Host Name Role Phone Ej Nair PCP Alex Etienne PreferredProvider Allergies and Adverse Reactions Name Reaction Notes Flexeril made him see things Plan of Treatment Planned Activity Comments Planned Date Planned Time Plan/Goal set up for ingrown nail and inflammation, scheduled 03/19/19 at 2:00 PM URINALYSIS W/MICRO C&S IF IND 09/14/2018 12:00 AM PSA TOTAL 10/22/2019 12:00 AM URINALYSIS W/MICRO C&S IF IND 08/18/2020 12:00 AM URINALYSIS W/MICRO C&S IF IND 11/17/2020 12:00 AM EKG. 01/18/2021 12:00 AM Medications Active Name Start Date Estimated Completion Date SIG Co mments amiodarone 200 mg oral tablet ta ke 1 tablet (200 mg) by oral route once daily metoprolol succinate 50 mg oral tablet extended release 24 hr take 1 tablet (50 mg) by oral route once daily citalopram 20 mg oral tablet 11/06/2018 sagrario e 1 tablet (20 mg) by oral route once daily at bedtime tramadol 50 mg oral tablet 03/30/2020 take 1 tablet (50 mg) by oral route every 4 hours as needed Anusol-HC 25 mg rectal suppository insert 1 suppository (25 mg) by rectal route every 12 hours as needed ascorbic acid (vitamin C) 500 mg oral tablet take 1 tablet by oral route daily Aspirin Low Dose 81 mg oral tablet,delayed release (DR/EC) take 1 tablet (81 mg) by oral route once daily bisacodyl 10 mg rectal suppository insert 1 suppository (10 mg) by rectal route every 12 hours as needed diltiazem HCl 180 mg oral capsule,extended release 24 hr take 1 capsule (180 mg) by oral route once daily docusate sodium 100 mg oral capsule take 1 capsule (100 mg) by oral route 2 times per day ferrous sulfate 325 mg (65 mg iron) oral tablet take 1 tablet (325 mg) by oral route 2 times per day Lactinex 1 million cell oral tablet,chewable chew 1 tablet by oral route 2 times a day Levemir FlexTouch U-100 Insuln 100 unit/mL (3 mL) subcutaneous i nsulin pen inject by subcutaneous route 5 units two times per day metoprolol tartrate 50 mg oral tablet take 1 tablet (50 mg) by oral route once daily Miralax 17 gram/dose oral powder take 17 gram mixed with 8 oz. water, juice, soda, coffee or tea by oral route twice per day mirtazapine 15 mg oral tablet ta ke 1 tablet (15 mg) by oral route once daily before bedtime multivitamin oral tablet take 1 tablet by oral route daily Novolog Flexpen U-100 Insulin 100 unit/mL (3 mL) subcutaneous in sulin pen inject by subcutaneous route per sliding scale Xarelto 20 mg oral tablet take 1 tablet (20 mg) by oral route once daily with the evening meal spironolactone 50 mg oral tablet take 1 tablet (50 mg) by oral route once daily zinc 50 mg oral tablet take 1 tablet by o ral route daily venlafaxine 75 mg oral capsule,extended release 24hr 06/03/2020 05/29/2021 take 1 capsule (75 mg) by oral route once daily with food for 90 days simvastatin 20 mg oral tablet 06/09/2020 06/04/2021 ta ke 1 tablet (20 mg) by oral route once daily in the evening for 90 days Vesicare 10 mg oral tablet 06/15/2020 take 1 tablet (10 mg) by oral route once daily tamsulosin 0.4 mg oral capsule 06/23/2020 t nellie 2 capsules (0.8 mg) by oral route once daily 1/2 hour following the same meal each day amlodipine 10 mg oral tablet 06/29/2020 sagrario e 1 tablet (10 mg) by oral route once daily Pyridium oral tablet 100 mg 11/26/2020 take 1 tablet (100 mg) by oral route 3 times per day after meals PRN Name Start Date Expiration Date SIG Comments Augmentin 485125 mg oral tablet 09/02/2009 09/16/2009 take 1 tablet by oral route every 12 hours for 14 days acyclovir 400 mg oral tablet 10/12/2009 10/19/2009 sagrario e 1 tablet by oral route 3 times a day for 7 days amoxicillin 500 mg oral tablet 04/06/2011 04/13/2011 t nellie 1 tablet (500 mg) by oral route 3 times per day for 7 days Zithromax Z-Lev 250 mg oral tablet 07/01/2011 07/06/2011 take 2 tablets (500 mg) by oral route once daily for 1 day then 1 tablet (250 mg) by oral route once daily for 4 days Flexeril 10 mg oral tablet 07/30/2012 08/13/2012 take 1 tablet (10 mg) by oral route 2 times per day for 14 days Trilipix 135 mg oral capsule,delayed release(DR/EC) 12/30/2013 03/30/2014 TAKE 1 TABLET BY MOUTH AT BEDTIME FOR CHOLESTEROL stopped in the hospital amoxicillin-pot clavulanate 500-125 mg oral tablet 09/14/2015 09/21/2015 take 1 tablet by oral route every 12 hours for 7 days Augmentin 875-125 mg oral tablet 07/10/2019 07/17/2019 take 1 tablet by oral route every 12 hours for 7 days pantoprazole 40 mg oral tablet,delayed release (DR/EC) 0 12/12/2020 take 1 tablet (40 mg) by oral route 2 times per day for 30 days Cipro 500 mg oral tablet 06/23/2020 07/07/2020 take 1 tablet (500 mg) by oral route every 12 hours for 14 days cephalexin oral capsule 500 mg 11/25/2020 12/09/2020 t nellie 1 capsule (500 mg) by oral route every 12 hours for 14 days fluconazole 200 mg oral tablet 11/27/2020 12/04/2020 t nellie 1 tablet (200 mg) by oral route once daily for 7 days cephalexin oral tablet 250 mg 01/18/2021 01/25/2021 ta ke 1 tablet by oral route daily for 7 days Discontinued Name Start Date Discontinued Date SIG Comments aspirin 325 mg oral tablet 08/25/2015 take 1 tablet (325 mg) by oral route once daily lisinopril 10 mg oral tablet 03/24/2011 07/16/2012 sagrario e 1 tablet (10 mg) by oral route once daily for 30 days ibuprofen Oral 10/23/2012 meloxicam 15 mg oral tablet 10/23/2012 12/30/2013 take 1 tablet (15 mg) by oral route once daily tramadol 50 mg oral tablet 11/16/2012 12/30/2013 take 1-2 by oral route every 6 hours as needed metformin 1,000 mg oral tablet 12/30/2013 10/08/2014 t nellie 1 tablet (1,000 mg) by oral route 2 times per day with morning and evening meals for 30 days changed to insulin in the hospital amoxicillin 500 mg oral capsule 12/30/2013 10/08/2014 take 1 capsule (500 mg) by oral route every 12 hours atorvastatin 20 mg oral tablet 08/25/2015 t nellie 1 tablet (20 mg) by oral route once daily Plavix 75 mg oral tablet 08/25/2015 take 1 tablet (75 mg) by oral route once daily "not taking this" methylphenidate 5 mg oral tablet 08/25/2015 take 1 tablet (5 mg) by oral route once daily Colace 100 mg oral capsule 08/25/2015 take 1 capsule (100 mg) by oral route 2 times per day Pain Formula 11/14/2014 08/25/2015 Apply 3-4 grams topically to affected area 3 times a day hydrocodone-acetaminophen 7.5-325 mg oral tablet 11/24/2014 08/25/2015 take 1 tablet by oral route every 6 hours as needed for pain Novolog Flexpen 100 unit/mL subcutaneous insulin pen 06/12/2015 11/30/2016 INJECT 7 UNITS BEFORE EACH MEAL AND PER SLIDING SCALE DIRECTED Numbness of extremities after injection methocarbamol 500 mg oral tablet 06/16/2015 08/25/2015 take 1 tablet (500 mg) by oral route at bedtime as needed Dexilant 60 mg oral capsule,biphase delayed releas 08/25/2015 09/14/2015 take 1 capsule (60 mg) by oral route once daily finished samples Apidra SoloStar 100 unit/mL subcutaneous insulin pen 11/30/2016 01/02/2017 Inject 5 units by subcutaneous route with each meal "too expensive" citalopram 20 mg oral tablet 11/30/2016 01/02/2017 sagrario e 1 tablet (20 mg) by oral route once daily "never started this" Aspirin Low Dose 81 mg oral tablet,delayed release (DR/EC) 07/06/2017 take 1 tablet (81 mg) by oral route once daily Stopped in the hospital Novolog Flexpen 100 unit/mL subcutaneous insulin pen 02/03/2017 07/06/2017 inject 6 units by subcutaneous route with each meal lisinopril 10 mg oral tablet 02/03/2017 07/06/2017 sagrario e 1 tablet (10 mg) by oral route once daily for 90 days WelChol 625 mg oral tablet 03/20/2017 07/06/2017 take 3 tablets (1,875 mg) by oral route once daily Tresiba FlexTouch U-100 100 unit/mL (3 mL) subcutaneous insu toby pen 03/20/2017 07/06/2017 inject 10 units by subcutaneous route once daily at dtiri pantoprazole 40 mg oral tablet,delayed release (DR/EC) 7 07/06/2017 take 1 tablet by oral route once a day (in the morning) Levemir FlexTouch 100 unit/mL (3 mL) subcutaneous insulin pe n 05/26/2017 07/06/2017 INJECT 20 UNITS SUBCUTANEOUSLY AT BEDTIME dose change Xarelto 20 mg oral tablet 02/05/2018 take 1 tablet (20 mg) by oral route once daily with the evening meal simvastatin 20 mg oral tablet 07/06/2017 ta ke 1 tablet (20 mg) by oral route once daily in the evening GI upset Januvia 50 mg oral tablet 11/13/2017 take 1 tablet (50 mg) by oral route once daily No longer taking $150 co-pay sotalol 80 mg oral tablet 01/22/2018 take 1/2 tablet by oral route daily omega-3 acid ethyl esters 1 gram oral capsule 04/2018 take 2 capsules (2 gram) by oral route 2 times per day Diarrhea WelChol 625 mg oral tablet 07/06/2017 11/13/2017 take 3 tablets (1,875 mg) by oral route 2 times per day with meals and liquid for 90 days $200 co-pay Levemir FlexTouch 100 unit/mL (3 mL) subcutaneous insulin pe n 08/01/2017 01/22/2018 inject by subcutaneous route 12 units at bedtime. expe nsive Xarelto 10 mg oral tablet 12/04/2017 03/31/2020 20 MIL LIGRAMS BY MOUTH BEFORE SUPPER taking Xarelto 20mg paroxetine HCl 20 mg oral tablet 01/02/2018 11/06/2018 20 MILLIGRAMS BY MOUTH DAILY for 90 days Angry Basaglar KwikPen U-100 Insulin 100 unit/mL (3 mL) subc utaneous insulin pen 01/04/2018 02/22/2018 inject by subcutaneous route 12 units at daily at bedtime pain at injection site Cartia XT 120 mg oral capsule,extended release 24hr 03/31/2020 take 1 capsule (120 mg) by oral route once daily not on halfway med list clindamycin HCl 150 mg oral capsule 01/22/2018 02/05/2018 take 1 capsule (150 mg) by oral route 2 times per day Tresiba FlexTouch U-100 100 unit/mL (3 mL) subcutaneous insulin pen 04/03/2018 inject by subcutaneous route 10 units once daily Injection site pain Clarity 11/06/2018 one capsule by oral route on ce daily vitamin B complex oral tablet 10/18/2018 take 1 tabl et by oral route daily Probiotic 01/29/2019 one capsule by oral route on ce daily Humalog KwikPen Insulin 200 unit/mL (3 mL) subcutaneous insu toby pen 07/13/2018 07/16/2018 inject by subcutaneous route per sliding scale 0-150 0 units 151-200 2 units 201-250 4 units 251-300 6 units 301-350 8 units >350 10 units Trulicity 0.75 mg/0.5 mL subcutaneous pen injector 07/20/2018 10/18/2018 inject 0.5 milliliter (0.75 mg) by subcutaneous route every 7 days in the abdomen, thigh, or upper arm rotating injection sites 'didn't want to take it" Men 50 Plus Multivitamin 300-600-300 mcg oral tablet 01/29/2019 take 1 tablet by oral route daily Neuro Peak 03/31/2020 one capsule by oral route on ce daily atorvastatin 20 mg oral tablet 02/27/2019 03/31/2020 TAKE 1 TAB LET BY MOUTH DAILY taking simvastatin citalopram 20 mg oral tablet 03/15/2019 03/31/2020 sagrario e 1 tablet (20 mg) by oral route once daily at bedtime not on halfway med list mupirocin 2 % topical ointment 03/18/2019 07/10/2019 a pply a small amount to the affected area by topical route 3 times per day vitamin B complex oral tablet 03/31/2020 take 1 tabl et by oral route daily Levemir FlexTouch U-100 Insuln 100 unit/mL (3 mL) subc utaneous insulin pen 07/08/2019 03/31/2020 inject 10 units by subcutaneous route in the evening dose updated Macrobid 100 mg oral capsule 06/19/2020 06/23/2020 sagrario e 1 capsule (100 mg) by oral route every 12 hours with food for 7 days fluconazole 100 mg oral tablet 06/23/2020 07/13/2020 t nellie 1 tablet (100 mg) by oral route once now and repeat in 1 week Problem List Description Status Onset Diabetes mellitus, type II Active Hyperlipidemia, Mixed Active 10/28/2012 History of CVA (cerebrovascular accident) Active 07/10/2017 Benign essential hypertension Active 07/10/2017 Atrial fibrillation, new onset Active 07/10/2017 Chronic kidney disease (CKD) stage 4 Active 06/26 Acquired absence of breast and nipple Active Adjustment disorder with depressed mood Active Anemia Active Below knee amputation Active Constipation Active CVA (Cerebrovascular accident) Active 09/04/14 Generalized anxiety disorder Active GERD (gastroesophageal reflux disease) Active Hematemesis Active Hypertension Active Hypertriglyceridemia Active Insomnia Active Major depressive disorder Active Muscle weakness (generalized) Active Overactive bladder Active Pain Active Unspecified hemorrhoids Active Unspecified symbolic dysfunctions Active Unsteadiness on feet Active Vitamin Deficiency Active Vital Signs Date Time BP-Sys(mm[Hg] BP-Amanda(mm[Hg]) HR(bpm) RR(rpm) Temp WT HT HC BMI BSA BMI Percentile O2 Sat(%) 11/17/2020 2:52:00 PM 86 {beats}/min 18 rpm 98.8 F 160 lbs 94 % 08/18/2020 3:02:00 PM 148 mm[Hg] 92 mm[Hg] 67 {beats}/min 18 rpm 97.7 F 99 % 07/13/2020 9:59:00 AM 60 {beats}/min 18 rpm 97.7 F 76 in 100 % 06/23/2020 1:54:00 PM 154 mm[Hg] 78 mm[Hg] 64 {beats}/min 18 rpm 98.1 F 76 in 100 % 05/25/2020 1:48:00 PM 124 mm[Hg] 70 mm[Hg] 60 {beats}/min 18 rpm 98.3 F 160 lbs 76 in 19.4756 kg/m2 1.9727 m2 100 % 04/07/2020 8:58:00 AM 130 mm[Hg] 70 mm[Hg] 59 {beats}/min 20 rpm 97.7 F 76 in 97 % 01/09/2020 3:12:00 PM 128 mm[Hg] 72 mm[Hg] 69 {beats}/min 18 rpm 99 F 180 lbs 76 in 21.9101 kg/m2 2.0924 m2 94 % 01/09/2020 3:12:00 PM 128 mm[Hg] 72 mm[Hg] 69 {beats}/min 18 rpm 99 F 180 lbs 76 in 21.9101 kg/m2 2.0924 m2 94 % 01/09/2020 3:12:00 PM 128 mm[Hg] 72 mm[Hg] 69 {beats}/min 18 rpm 99 F 180 lbs 76 in 21.9101 kg/m2 2.0924 m2 94 % 01/09/2020 3:12:00 PM 128 mm[Hg] 72 mm[Hg] 69 {beats}/min 18 rpm 99 F 180 lbs 76 in 21.9101 kg/m2 2.0924 m2 94 % 01/09/2020 3:12:00 PM 128 mm[Hg] 72 mm[Hg] 69 {beats}/min 18 rpm 99 F 180 lbs 76 in 21.9101 kg/m2 2.0924 m2 94 % 01/09/2020 3:12:00 PM 128 mm[Hg] 72 mm[Hg] 69 {beats}/min 18 rpm 99 F 180 lbs 76 in 21.9101 kg/m2 2.0924 m2 94 % 12/30/2019 10:52:00 AM 102 {beats}/min 96 % 07/10/2019 2:32:00 PM 150 mm[Hg] 88 mm[Hg] 62 {beats}/min 18 rpm 97.3 F 194 lbs 76 in 23.61 kg/m2 2.17 m2 97 % 05/09/2019 1:25:00 PM 148 mm[Hg] 70 mm[Hg] 60 {beats}/min 16 rpm 98.1 F 197 lbs 76 in 23.9793 kg/m2 2.189 m2 96 % 03/18/2019 2:16:00 PM 168 mm[Hg] 90 mm[Hg] 69 {beats}/min 18 rpm 98.7 F 191 lbs 76 in 23.25 kg/m2 2.16 m2 97 % 01/29/2019 1:27:00 PM 138 mm[Hg] 68 mm[Hg] 58 {beats}/min 20 rpm 98.1 F 188 lbs 76 in 22.8838 kg/m2 2.1384 m2 96 % 11/06/2018 2:26:00 PM 138 mm[Hg] 88 mm[Hg] 81 {beats}/min 18 rpm 98.1 F 189 lbs 76 in 23.01 kg/m2 2.14 m2 97 % 10/18/2018 1:26:00 PM 122 mm[Hg] 70 mm[Hg] 59 {beats}/min 18 rpm 97.7 F 187 lbs 76 in 22.7621 kg/m2 2.1327 m2 98 % 09/14/2018 3:24:00 PM 132 mm[Hg] 86 mm[Hg] 82 {beats}/min 18 rpm 98.2 F 180 lbs 76 in 21.91 kg/m2 2.09 m2 96 % 07/16/2018 1:37:00 PM 144 mm[Hg] 78 mm[Hg] 66 {beats}/min 20 rpm 97.8 F 187 lbs 76 in 22.76 kg/m2 2.13 m2 99 % 07/09/2018 3:37:00 PM 124 mm[Hg] 68 mm[Hg] 68 {beats}/min 12 rpm 97.9 F 189.25 lbs 76 in 23.036 kg/m2 2.1455 m2 96 % 05/14/2018 1:33:00 PM 148 mm[Hg] 88 mm[Hg] 100 {beats}/min 20 rpm 98.1 F 184 lbs 76 in 22.40 kg/m2 2.12 m2 99 % 02/05/2018 1:28:00 PM 158 mm[Hg] 88 mm[Hg] 106 {beats}/min 20 rpm 98.1 F 189 lbs 76 in 23.0056 kg/m2 2.1441 m2 98 % 01/22/2018 2:58:00 PM 168 mm[Hg] 90 mm[Hg] 91 {beats}/min 20 rpm 97.5 F 190 lbs 76 in 23.13 kg/m2 2.15 m2 98 % 10/30/2017 1:32:00 PM 130 mm[Hg] 78 mm[Hg] 136 {beats}/min 20 rpm 97.5 F 190 lbs 76 in 23.1273 kg/m2 2.1497 m2 98 % 08/01/2017 11:04:00 AM 140 mm[Hg] 82 mm[Hg] 86 {beats}/min 20 rpm 97.3 F 189.25 lbs 76 in 23.04 kg/m2 2.15 m2 99 % 07/06/2017 8:06:00 AM 122 mm[Hg] 78 mm[Hg] 100 {beats}/min 20 rpm 97.3 F 184 lbs 76 in 22.397 kg/m2 2.1155 m2 97 % 05/09/2017 10:09:00 AM 129 mm[Hg] 76 mm[Hg] 99 {beats}/min 18 rpm 98.1 F 180 lbs 76 in 21.91 kg/m2 2.09 m2 98 % 02/03/2017 10:59:00 AM 154 mm[Hg] 84 mm[Hg] 77 {beats}/min 20 rpm 97.7 F 181 lbs 76 in 22.0318 kg/m2 2.0982 m2 98 % 01/02/2017 9:46:00 AM 136 mm[Hg] 70 mm[Hg] 116 {beats}/min 20 rpm 97.3 F 185 lbs 76 in 22.52 kg/m2 2.12 m2 99 % 11/30/2016 9:09:00 AM 122 mm[Hg] 78 mm[Hg] 62 {beats}/min 16 rpm 97 F 187.125 lbs 76 in 22.7773 kg/m2 2.1334 m2 99 % 09/14/2015 9:24:00 AM 144 mm[Hg] 86 mm[Hg] 96 {beats}/min 20 rpm 98 F 189 lbs 76 in 23.01 kg/m2 2.14 m2 99 % 08/25/2015 1:21:00 PM 142 mm[Hg] 78 mm[Hg] 126 {beats}/min 20 rpm 97.2 F 186 lbs 64 in 31.9265 kg/m2 1.9518 m2 99 % 06/16/2015 11:13:00 AM 158 mm[Hg] 88 mm[Hg] 77 {beats}/min 18 rpm 96.8 F 186.5 lbs 76 in 22.70 kg/m2 2.13 m2 98 % 12/08/2014 1:44:00 PM 138 mm[Hg] 80 mm[Hg] 89 {beats}/min 16 rpm 97.6 F 172.125 lbs 76 in 20.9515 kg/m2 2.0461 m2 97 % 11/24/2014 1:41:00 PM 142 mm[Hg] 72 mm[Hg] 95 {beats}/min 20 rpm 98 F 176 lbs 76 in 21.42 kg/m2 2.07 m2 97 % 11/07/2014 9:48:00 AM 134 mm[Hg] 70 mm[Hg] 86 {beats}/min 20 rpm 98.2 F 178 lbs 76 in 21.6666 kg/m2 2.0807 m2 98 % 10/08/2014 9:52:00 AM 138 mm[Hg] 88 mm[Hg] 68 {beats}/min 20 rpm 98.5 F 180 lbs 76 in 21.91 kg/m2 2.09 m2 12/30/2013 3:31:00 PM 136 mm[Hg] 70 mm[Hg] 100 {beats}/min 20 rpm 98.1 F 179 lbs 76 in 21.7883 kg/m2 2.0866 m2 100 % 11/27/2012 3:03:00 PM 148 mm[Hg] 62 mm[Hg] 88 {beats}/min 20 rpm 98 F 178 lbs 76 in 21.67 kg/m2 2.08 m2 10/25/2012 10:17:00 AM 130 mm[Hg] 82 mm[Hg] 72 {beats}/min 20 rpm 98.2 F 182 lbs 76 in 22.1535 kg/m2 2.104 m2 10/23/2012 9:25:00 AM 142 mm[Hg] 80 mm[Hg] 72 {beats}/min 18 rpm 97.1 F 179.375 lbs 76 in 21.83 kg/m2 2.09 m2 07/30/2012 8:39:00 AM 158 mm[Hg] 80 mm[Hg] 68 {beats}/min 18 rpm 96.6 F 181 lbs 76 in 22.0318 kg/m2 2.0982 m2 07/16/2012 8:07:00 AM 128 mm[Hg] 72 mm[Hg] 72 {beats}/min 18 rpm 96 F 187.25 lbs 76 in 22.79 kg/m2 2.13 m2 100 % 10/07/2011 11:43:00 AM 78 {beats}/min 98.7 F 182.375 lbs 97 % 09/12/2011 9:10:00 AM 140 mm[Hg] 90 mm[Hg] 78 {beats}/min 97.9 F 18 5.375 lbs 99 % 08/29/2011 9:07:00 AM 142 mm[Hg] 95 mm[Hg] 82 {beats}/min 96.8 F 189 l bs 99 % 08/09/2011 9:00:00 AM 90 {beats}/min 96.4 F 186 lbs 98 % 07/01/2011 11:11:00 AM 138 mm[Hg] 82 mm[Hg] 68 {beats}/min 18 rpm 97.6 F 186.25 lbs 76 in 22.6708 kg/m2 2.1284 m2 03/24/2011 3:28:00 PM 135 mm[Hg] 88 mm[Hg] 88 {beats}/min 98.7 F 190 lbs 98 % 03/14/2011 11:59:00 AM 135 mm[Hg] 70 mm[Hg] 88 {beats}/min 97.5 F 189.562 lbs 98 % 07/07/2010 2:22:00 PM 158 mm[Hg] 94 mm[Hg] 102 {beats}/min 16 rpm 96.9 F 204 lbs 97 % 04/20/2010 8:50:00 AM 160 mm[Hg] 90 mm[Hg] 67 {beats}/min 96.6 F 199.5 lbs 76 in 24.2837 kg/m2 2.2028 m2 10/12/2009 4:23:00 PM 144 mm[Hg] 90 mm[Hg] 70 {beats}/min 16 rpm 97.1 F 206 lbs 09/02/2009 9:27:00 AM 140 mm[Hg] 84 mm[Hg] 88 {beats}/min 20 rpm 97.1 F 205 lbs 76 in 24.9531 kg/m2 2.233 m2 Social History Name Description Comments denies smoking Alcohol Use - Occasional Tobacco Never smoker 01/09/2020 - History of Procedures Date Ordered Description Order Status 03/14/2011 12:00 AM CHEST X-RAY 1 VIEW FRONTAL Reviewed 06/16/2015 12:00 AM Physical Therapy Consult Reviewed 08/09/2011 12:00 AM URINALYSIS NONAUTO W/SCOPE Reviewed 09/02/2011 12:00 AM ROUTINE VENIPUNCTURE Reviewed 09/02/2011 12:00 AM COMPLETE CBC W/AUTO DIFF WBC Reviewed 09/02/2011 12:00 AM COMPREHEN METABOLIC PANEL Reviewed 09/02/2011 12:00 AM LIPID PANEL Reviewed 09/02/2011 12:00 AM GLYCOSYLATED HEMOGLOBIN TEST Reviewed 09/02/2011 12:00 AM URINALYSIS AUTO W/SCOPE Reviewed 09/02/2009 12:00 AM COMPREHEN METABOLIC PANEL Reviewed 09/02/2009 12:00 AM LIPID PANEL Reviewed 09/02/2009 12:00 AM GLYCOSYLATED HEMOGLOBIN TEST Reviewed 01/02/2017 12:00 AM COMPREHEN METABOLIC PANEL Reviewed 01/02/2017 12:00 AM GLYCOSYLATED HEMOGLOBIN TEST Reviewed 01/02/2017 12:00 AM LIPID PANEL Reviewed 01/02/2017 12:00 AM MICROALBUMIN QUANTITATIVE Reviewed 01/02/2017 12:00 AM VITAMIN B-12 Reviewed 07/16/2012 12:00 AM COMPLETE CBC W/AUTO DIFF WBC Reviewed 07/16/2012 12:00 AM COMPREHEN METABOLIC PANEL Reviewed 07/16/2012 12:00 AM LIPID PANEL Reviewed 07/16/2012 12:00 AM GLYCOSYLATED HEMOGLOBIN TEST Reviewed 10/23/2012 12:[address] [facility]#9023-5571-96 Reviewed 10/23/2012 12:00 AM THER/PROPH/DIAG INJ SC/IM Reviewed 10/12/2009 12:00 AM COMPREHEN METABOLIC PANEL Reviewed 10/12/2009 12:00 AM LIPID PANEL Reviewed 10/12/2009 12:00 AM GLYCOSYLATED HEMOGLOBIN TEST Reviewed 10/12/2009 12:00 AM COMPLETE CBC W/AUTO DIFF WBC Reviewed 11/27/2012 12:00 AM Physical Therapy Reviewed 05/14/2018 12:00 AM GLYCOSYLATED HEMOGLOBIN TEST Reviewed 05/14/2018 12:00 AM COMPREHEN METABOLIC PANEL Reviewed 05/14/2018 12:00 AM LIPID PANEL Reviewed 07/09/2018 12:00 AM URINALYSIS AUTO W/SCOPE Reviewed 07/14/2018 12:00 AM ASSAY OF PSA TOTAL Reviewed 09/14/2018 3:29 PM US URINE CAPACITY MEASURE Reviewed 10/18/2018 12:00 AM COMPREHEN METABOLIC PANEL Reviewed 10/18/2018 12:00 AM LIPID PANEL Reviewed 10/18/2018 12:00 AM GLYCOSYLATED HEMOGLOBIN TEST Reviewed 10/18/2018 12:00 AM COMPLETE CBC W/AUTO DIFF WBC Reviewed 11/22/2018 12:00 AM ASSAY OF TOTAL TESTOSTERONE Reviewed 12/30/2019 12:00 AM SARS-CoV-2 non-CDC lab test Returned 06/15/2020 12:00 AM URNLS DIP STICK/TABLET RGNT AUTO W/O VJ ROSCOPY Returned 06/15/2020 12:00 AM SPECIMEN HANDLING OFFICE-LAB Reviewed 07/13/2020 12:00 AM URINALYSIS AUTO W/SCOPE Reviewed 07/17/2020 12:00 AM VASCULAR STUDY Reviewed 08/18/2020 3:39 PM US URINE CAPACITY MEASURE Reviewed 11/25/2020 12:00 AM CYSTOSCOPY Reviewed 11/25/2020 12:00 AM INSERT TEMP BLADDER CATH Reviewed 11/25/2020 12:00 AM ELECTROCARDIOGRAM TRACING Reviewed 11/25/2020 12:00 AM METABOLIC PANEL TOTAL CA Reviewed 11/25/2020 12:00 AM COMPLETE CBC W/AUTO DIFF WBC Reviewed 11/25/2020 12:00 AM URINALYSIS AUTO W/SCOPE Reviewed 11/25/2020 12:00 AM GLYCOSYLATED HEMOGLOBIN TEST Reviewed 01/18/2021 12:00 AM INSERT TEMP BLADDER CATH Reviewed 01/18/2021 12:00 AM COMPLETE CBC W/AUTO DIFF WBC Reviewed 01/18/2021 12:00 AM METABOLIC PANEL TOTAL CA Reviewed 01/18/2021 12:00 AM GLYCOSYLATED HEMOGLOBIN TEST Reviewed 01/21/2021 12:00 AM COVID-19 Testing Reviewed 04/20/2010 12:00 AM CHEST X-RAY 2VW FRONTAL&LATL Reviewed 07/07/2010 12:00 AM THER/PROPH/DIAG INJ SC/IM Reviewed 07/07/2010 12:00 AM [place] CR 1.2 Mu (Karin) [facility]# [id number] 07-05 Reviewed 10/08/2014 12:00 AM Physical Therapy Consultation Reviewed 10/08/2014 12:00 AM Occupational Therapy Consult Reviewed Results Summary Date and Description Results 09/03/2009 11:13 AM Colonoscopy-Women and Men ov er 50 Declined 08/09/2011 9:11 AM COLOR YELLOW APPEARANCE FORTINO R SPEC GRAV 1.025 pH 5.5 PROTEIN NEGATIVE GLUCOSE >=1000 KETONE NEGATIVE BILIRUBIN NEGATIVE BLOOD SMALL NITRITE NEGATIVE LEUK SCREEN NEGATIVE WBC/HPF RARE RBC/HPF 0-5 CASTS/LPF NEGATIVE CRYSTALS NEGATIVE MUCOUS THRDS NEGATIVE BACTERIA FEW EPITH CELLS NEGATIVE TRICHOMONAS NEGATIVE YEAST NEGATIVE CULT SET UP? NO 09/02/2011 9:57 AM COLOR YELLOW APPEARANCE FORTINO R SPEC GRAV >=1.030 pH 5.5 PROTEIN TRACE GLUCOSE >=1000 KETONE TRACE BILIRUBIN NEGATIVE BLOOD NEGATIVE NITRITE NEGATIVE LEUK SCREEN NEGATIVE WBC/HPF RARE RBC/HPF 0-5 CASTS/LPF NEGATIVE CRYSTALS NEGATIVE MUCOUS THRDS FEW BACTERIA FEW EPITH CELLS NEGATIVE TRICHOMONAS NEGATIVE YEAST NEGATIVE CULT SET UP? NO WBC 5.9 RBC 5.00 HGB 16.10 g/dLHCT 43.40 %MCV 87.0 fLMCH 32.20 pgMCHC 37.10 g/dLRDW SD 40 RDW CV 12.50 %MPV 11.20 fLPLT 203 NRBC# 0.06 NRBC% 1.0 %NEUT 55.10 %%LYMP 21.70 %%MONO 18.90 %%EOS 3.60 %%BASO 0.70 %#NEUT 3.23 #LYMP 1.27 #MONO 1.11 #EOS 0.21 #BASO 0.04 MANUAL DIFF SEE BELOW SEGS 58 LYMPHS 37 MONOS 4 EOS 1.0 %TRIGLYCERIDES 5433.0 mg/dLCHOLESTEROL 808.0 mg/dLHDL 21.0 mg/dLTOT CHOL/HDL 38.5 LDL (CALC) INVALID MG/DLGLYCOHEMOGLOBIN A1C 9.80 %GLUCOSE 343.0 mg/dLSODIUM 126.0 mmol/LPOTASSIUM 4.20 mmol/LCHLORIDE 91.0 mmol/LCO2 23.0 mmol/LBUN 14.0 mg/dLCREATININE 1.0 mg/dLSGOT/AST 16.0 IU/LSGPT/ALT 83.0 IU/LALK PHOS 98.0 IU/LTOTAL PROTEIN 11.50 g/dLALBUMIN 4.50 g/dLTOTAL BILI 0.80 mg/dLCALCIUM 9.40 mg/dLAGE 60 GFR NonAA 76 GFR AA 92 eGFR >60 mL/min/1.73 m2eGFR AA* >60 03/08/2017 9:40 AM MICROALBUMIN UR 69.0 ug/mLHG B A1C 8.40 %Est Avg Glucose 194.4 mg/dLTRIGLYCERIDES 478.0 mg/dLCHOLESTEROL 170.0 mg/dLHDL 26.0 mg/dLTOT CHOL/HDL 6.5 LDL (CALC) INVALID mg/dLVITAMIN B12 736.0 pg/mLGLUCOSE 218.0 mg/dLSODIUM 138.0 mmol/LPOTASSIUM 4.30 mmol/LCHLORIDE 102.0 mmol/LCO2 27.0 mmol/LBUN 25.0 mg/dLCREATININE 1.30 mg/dLSGOT/AST 16.0 IU/LSGPT/ALT 22.0 IU/LALK PHOS 99.0 IU/LTOTAL PROTEIN 7.50 g/dLALBUMIN 4.10 g/dLTOTAL BILI 0.60 mg/dLCALCIUM 9.30 mg/dLAGE 66 GFR NonAA 55 GFR AA 67 eGFR 55 eGFR AA* >60 07/09/2018 4:32 PM COLOR YELLOW APPEARANCE FORTINO R SPEC GRAV <=1.005 pH 6.0 PROTEIN NEGATIVE GLUCOSE >=1000 KETONE NEGATIVE BILIRUBIN NEGATIVE BLOOD NEGATIVE NITRITE NEGATIVE LEUK SCREEN NEGATIVE WBC/HPF NEGATIVE RBC/HPF RARE CASTS/LPF NEGATIVE CRYSTALS NEGATIVE MUCOUS THRDS NEGATIVE BACTERIA NEGATIVE EPITH CELLS FEW SQUAMOUS TRICHOMONAS NEGATIVE YEAST NEGATIVE CULT SET UP? NO 07/13/2018 10:45 AM COLOR YELLOW APPEARANCE FORTINO R SPEC GRAV 1.015 pH 5.5 PROTEIN TRACE GLUCOSE >=1000mg/dL KETONE TRACE BILIRUBIN NEGATIVE BLOOD NEGATIVE NITRITE NEGATIVE LEUK SCREEN NEGATIVE WBC/HPF RARE RBC/HPF NEGATIVE CASTS/LPF NEGATIVE CRYSTALS NEGATIVE MUCOUS THRDS NEGATIVE BACTERIA NEGATIVE EPITH CELLS FEW SQUAMOUS TRICHOMONAS NEGATIVE YEAST NEGATIVE CULT SET UP? NO PSA TOTAL 0.440 ng/mLTRIGLYCERIDES 1391 CHOLESTEROL 284.0 mg/dLHDL 27 TOT CHOL/HDL 10.5 LDL (CALC) INVALID GLUCOSE 399 SODIUM 133 POTASSIUM 3.9 CHLORIDE 98.0 mmol/LCO2 24 BUN 17.0 mg/dLCREATININE 1.30 mg/dLSGOT/AST 20 SGPT/ALT 27 ALK PHOS 132 TOTAL PROTEIN 7.0 ALBUMIN 3.9 TOTAL BILI 0.5 CALCIUM 8.80 mg/dLAGE 67 GFR NonAA 55 GFR AA 67 eGFR 55 eGFR AA* >60 mL/min/1.73 m2 07/16/2018 1:39 PM Falls in last 6 months? Yes Unsteady or worry about falling? Yes Fall Risk Assessment At Risk 09/14/2018 3:29 PM Residual Urine 34.0 mL 12/19/2018 9:48 AM TRIGLYCERIDES 461 CHOLESTERO L 158.0 mg/dLHDL 28 TOT CHOL/HDL 5.6 LDL (CALC) INVALID GLUCOSE 335 SODIUM 139 POTASSIUM 4.4 CHLORIDE 103.0 mmol/LCO2 26 BUN 28.0 mg/dLCREATININE 1.490 mg/dLSGOT/AST 16 SGPT/ALT 26 ALK PHOS 111 TOTAL PROTEIN 6.8 ALBUMIN 3.9 TOTAL BILI 0.5 CALCIUM 9.50 mg/dLAGE 67 GFR NonAA 47 GFR AA 57 eGFR 47 eGFR AA* 57 HGB A1C 11.0 %Est Avg Glucose 269.0 WBC 6.0 RBC 4.65 HGB 14.20 g/dLHCT 40.20 %MCV 87.0 fLMCH 30.50 pgMCHC 35.30 g/dLRDW SD 36 fLRDW CV 11.60 %MPV 9.60 fLPLT 169 NRBC# 0.00 NRBC% 0.0 %NEUT 60.8 %LYMP 27.0 %MONO 7.1 %EOS 4.0 %BASO 0.8 #NEUT 3.67 #LYMP 1.63 #MONO 0.43 #EOS 0.24 #BASO 0.05 MANUAL DIFF NOT IND 07/13/2020 11:47 AM COLOR Light-Yellow CLARITY C lear SPEC GRAV 1.017 pH 7.0 PROTEIN 70 GLUCOSE 50 KETONE Negative BILIRUBIN Negative BLOOD Negative NITRITE Negative LEUK SCREEN Negative RBC/HPF 0-3 WBC/HPF 0-5 BACTERIA/HPF None Seen SQUAMOUS EPI/LPF None Seen MUCOUS/LPF Few CULT SET UP? NO 08/18/2020 3:39 PM Residual Urine 174.0 mL 11/25/2020 3:03 PM HGB A1C 8.90 %Est Avg Glucos e 208.7 GLUCOSE 260 SODIUM 139 POTASSIUM 5.0 CHLORIDE 98.0 mmol/LCO2 28 BUN 33.0 mg/dLCREATININE 1.80 mg/dLCALCIUM 9.10 mg/dLAGE 69 GFR NonAA 38 GFR AA 46 eGFR 38 mL/min/1.73meGFR AA* 46 mL/min/1.73mCOLOR Yellow CLARITY Ex. Turbid SPEC GRAV 1.014 pH 5.5 PROTEIN 100 GLUCOSE Normal KETONE Negative BILIRUBIN Negative BLOOD 2+ NITRITE Negative LEUK SCREEN 500 RBC/HPF 51-100 WBC/HPF TNTC BACTERIA/HPF None Seen BUD DING YEAST/HPF 2+ SQUAMOUS EPI/LPF Few MUCOUS/LPF Few CULT SET UP? YES WBC 7.8 RBC 3.85 HGB 9.70 g/dLHCT 30.90 %MCV 80.0 fLMCH 25.20 pgMCHC 31.40 g/dLRDW SD 43 %RDW CV 14.70 %MPV 9.60 fLPLT 264 x10E3/uLNRBC# 0.00 NRBC% 0.0 %NEUT 74.8 %LYMP 11.8 %MONO 6.7 %EOS 5.3 %BASO 1.0 #NEUT 5.81 #LYMP 0.92 #MONO 0.52 #EOS 0.41 #BASO 0.08 MANUAL DIFF NOT IND 01/19/2021 3:45 PM GLUCOSE 149 SODIUM 138 POTAS SIUM 4.6 CHLORIDE 102.0 mmol/LCO2 31 BUN 35.0 mg/dLCREATININE 1.70 mg/dLCALCIUM 8.90 mg/dLAGE 70 GFR NonAA 40 GFR AA 48 eGFR 40 mL/min/1.73meGFR AA* 48 mL/min/1.73mHGB A1C 8.30 %Est Avg Glucose 191.5 WBC 7.6 RBC 3.61 HGB 8.80 g/dLHCT 28.10 %MCV 78.0 fLMCH 24.40 pgMCHC 31.30 g/dLRDW SD 42 %RDW CV 15.30 %MPV 9.70 fLPLT 259 x10E3/uLNRBC# 0.00 NRBC% 0.0 %NEUT 73.0 %LYMP 14.8 %MONO 6.6 %EOS 4.6 %BASO 0.7 #NEUT 5.56 #LYMP 1.13 #MONO 0.50 #EOS 0.35 #BASO 0.05 MANUAL DIFF NOT IND 01/22/2021 8:10 AM SARS-CoV-2 RNA Not Detected Specimen Source: Nasopharyngeal SARS-CoV-2 RNA Not Detected Specimen Source: Nasopharyngeal History Of Immunizations Not available. History of Past Illness Name Date of Onset Comments Diabetes mellitus, type II Tests 3 times a day Diabetes Mellitus, Type II Sep 02 2009 9:37AM Hyperlipidemia Sep 02 2009 9:37AM Acute sinusitis; frontal Sep 02 2009 9:37AM Essential Hypertension Oct 12 2009 4:26PM Hyperlipidemia Oct 12 2009 4:26PM Diabetes Mellitus, Type II Oct 12 2009 4:26PM Herpes Simplex, Genital Oct 12 2009 4:26PM Hypertriglyceridemia Hypertension Hyperlipidemia, Mixed 10/28/2012 Chest Pain Apr 20 2010 8:53AM CVA (Cerebrovascular accident) 09/04/14 Bronchitis Jul 07 2010 2:23PM History of CVA (cerebrovascular accident) 07/10/2017 Benign essential hypertension 07/10/2017 Atrial fibrillation, new onset 07/10/2017 Chronic kidney disease (CKD) stage 4 07/10/2017 Shortness of breath Mar 14 2011 11:55AM Diabetes Mellitus, Type II Mar 24 2011 3:24PM Hyperlipidemia, unspecified Mar 24 2011 3:24PM General Medical Exam, Adult Mar 14 2011 11:55AM Upper Respiratory Infections Jul 01 2011 11:13AM Dysuria Aug 09 2011 9:01AM Low Back Pain Aug 29 2011 9:09AM Hypertension Sep 02 2011 9:21AM Diabetes Mellitus, Type II Sep 02 2011 9:21AM Hyperlipidemia Sep 12 2011 9:11AM Kidney Calculus Sep 12 2011 9:11AM Low Back Pain Aug 09 2011 9:01AM Kidney Calculus Oct 07 2011 11:44AM Adjustment disorder with depressed mood Hematemesis Muscle weakness (generalized) Unsteadiness on feet Unspecified symbolic dysfunctions Generalized anxiety disorder Major depressive disorder Overactive bladder GERD (gastroesophageal reflux disease) Anemia Vitamin Deficiency Insomnia Constipation Unspecified hemorrhoids Pain Acquired absence of breast and nipple Below knee amputation right leg Diabetes Mellitus, Type II Jul 16 2012 8:09AM Hypertension Jul 16 2012 8:09AM Hyperlipidemia, unspecified Jul 16 2012 8:09AM Erectile dysfunction Jul 16 2012 8:09AM Right rib pain Jul 30 2012 8:41AM Back Pain Oct 23 2012 9:27AM Diabetes Mellitus, Type II Oct 25 2012 10:21AM Chronic back pain Oct 25 2012 10:21AM Hyperlipidemia, Mixed Oct 25 2012 10:21AM Chronic pain Nov 27 2012 3:05PM Bronchitis, Acute Jan 25 2014 10:58AM Hyperlipidemia, Mixed Jan 25 2014 10:58AM Diabetes Mellitus, Type II Jan 25 2014 10:58AM Hyperlipidemia, Mixed Oct 08 2014 10:00AM Diabetes Mellitus, Type II Oct 08 2014 10:00AM Late effects of cerebrovascular accident Oct 08 2014 10:00AM Hyperlipidemia, Mixed Nov 07 2014 9:50AM Diabetes Mellitus, Type II Nov 07 2014 9:50AM Late effects of cerebrovascular accident Nov 07 2014 9:50AM Right Chest Contusion Nov 24 2014 1:43PM Fall against object, initial encounter Nov 24 2014 1:43PM Right Chest Contusion Dec 08 2014 1:48PM Diabetes Mellitus, Type II Dec 08 2014 1:48PM Fall against object, subsequent encounter Dec 08 2014 1:48P M Hyperlipidemia, mixed Jun 16 2015 11:19AM Diabetes Mellitus, Type II Jun 16 2015 11:19AM Depression Jun 16 2015 11:19AM Right shoulder pain Jun 16 2015 11:19AM Gastroesophageal Reflux Aug 25 2015 1:26PM Diabetes Mellitus, Type II Aug 25 2015 1:26PM Insomnia Aug 25 2015 1:26PM Hiccups Aug 25 2015 1:26PM Bronchitis, Acute Sep 14 2015 9:26AM Controlled diabetes mellitus with long-term current us e of insulin Nov 30 2016 9:09AM Depression with anxiety Nov 30 2016 9:09AM Controlled diabetes mellitus with long-term current us e of insulin Jan 02 2017 9:48AM Severe episode of recurrent major depres sive disorder, without psychotic features Jan 02 2017 9:48AM Hyperlipidemia, Mixed Feb 03 2017 11:01AM Diabetes Mellitus, Type II Feb 03 2017 11:01AM Depression Feb 03 2017 11:01AM Essential Hypertension Feb 03 2017 11:01AM GERD without esophagitis May 09 2017 10:11AM Hyperlipidemia, Mixed Jul 06 2017 8:08AM Diabetes Mellitus, Type II Jul 06 2017 8:08AM History of CVA (cerebrovascular accident) Jul 06 2017 8:08A M Benign essential hypertension Jul 06 2017 8:08AM Atrial fibrillation, new onset Jul 06 2017 8:08AM Chronic kidney disease (CKD) stage 4 Jul 06 2017 8:08AM Benign essential hypertension Aug 01 2017 11:05AM History of CVA (cerebrovascular accident) Aug 01 2017 11:05A M Diabetes Mellitus, Type II Aug 01 2017 11:05AM Atrial fibrillation Aug 01 2017 11:05AM Hyperlipidemia, Mixed Aug 01 2017 11:05AM Chronic kidney disease (CKD) stage 4 Aug 01 2017 11:05AM Depression with anxiety Aug 01 2017 11:05AM Benign essential hypertension Oct 30 2017 1:33PM History of CVA (cerebrovascular accident) Oct 30 2017 1:33P M Diabetes Mellitus, Type II Oct 30 2017 1:33PM Hyperlipidemia, Mixed Oct 30 2017 1:33PM Chronic kidney disease (CKD) stage 4 Oct 30 2017 1:33PM Depression with anxiety Oct 30 2017 1:33PM Paroxysmal atrial fibrillation Oct 30 2017 1:33PM Dental abscess Jan 22 2018 3:00PM Benign essential hypertension Feb 05 2018 1:30PM History of CVA (cerebrovascular accident) Feb 05 2018 1:30P M Diabetes Mellitus, Type II Feb 05 2018 1:30PM Atrial fibrillation Feb 05 2018 1:30PM Hyperlipidemia, Mixed Feb 05 2018 1:30PM Chronic kidney disease (CKD) stage 4 Feb 05 2018 1:30PM Depression with anxiety Feb 05 2018 1:30PM Diabetes Mellitus, Type II May 14 2018 1:35PM Benign Essential Hypertension May 14 2018 1:35PM Hyperlipidemia, Mixed May 14 2018 1:35PM Erectile dysfunction Jul 09 2018 3:41PM Benign prostatic hyperplasia with lower urinary tract symptoms Jul 09 2018 3:41PM Nocturia Jul 09 2018 3:41PM Diabetes Jul 09 2018 3:41PM Prostate cancer screening Jul 09 2018 3:41PM Atrial Fibrillation Jul 16 2018 1:39PM Essential Hypertension Jul 16 2018 1:39PM Diabetes Mellitus, Type II, Uncontrolled Jul 16 2018 1:39PM Hyperlipidemia, Mixed Jul 16 2018 1:39PM BPH (benign prostatic hyperplasia) Sep 14 2018 3:29PM History of CVA (cerebrovascular accident) Oct 18 2018 1:27P M Hyperlipidemia, Mixed Oct 18 2018 1:27PM Atrial Fibrillation Oct 18 2018 1:27PM Essential Hypertension Oct 18 2018 1:27PM Diabetes Mellitus, Type II, Uncontrolled Oct 18 2018 1:27PM Diabetes mellitus type II, uncontrolled Nov 06 2018 2:27PM Depressive Disorder Nov 06 2018 2:27PM Erectile dysfunction Nov 22 2018 8:38AM Diabetes mellitus type II, uncontrolled Jan 29 2019 1:29PM Depressive Disorder Jan 29 2019 1:29PM Ingrown toenail Mar 18 2019 2:19PM Onychia, toe Mar 18 2019 2:19PM Diabetes mellitus type II, uncontrolled May 09 2019 1:27PM Depressive Disorder May 09 2019 1:27PM Hyperglyceridemia, Pure May 09 2019 1:27PM Diabetes Mellitus, Type II Jul 10 2019 2:35PM Dental infection Jul 10 2019 2:35PM Benign essential hypertension Jul 10 2019 2:35PM BPH (benign prostatic hyperplasia) Oct 22 2019 9:24AM Fever, unspecified Dec 30 2019 9:20AM Nausea & vomiting Dec 30 2019 9:20AM Weakness Dec 30 2019 9:20AM Wound of right foot Jan 09 2020 3:19PM Diabetes Mellitus, Type II Apr 07 2020 9:01AM Major depressive disorder Apr 07 2020 9:01AM Benign essential hypertension May 14 2020 8:21AM Chronic kidney disease (CKD) stage 4 May 14 2020 8:21AM History of CVA (cerebrovascular accident) May 14 2020 8:21A M Hyperlipidemia, Mixed May 14 2020 8:21AM Below knee amputation May 14 2020 8:21AM Major depressive disorder May 14 2020 8:21AM Diabetes mellitus type 2, uncontrolled May 25 2020 1:59PM Below knee amputation May 25 2020 1:59PM Hammer toe of left foot May 25 2020 1:59PM Dysuria Jun 15 2020 4:48PM Acute prostatitis Jun 23 2020 1:54PM Benign prostatic hyperplasia with lower urinary tract symptoms Jun 23 2020 1:54PM Other obstructive and reflux uropathy Jun 23 2020 1:54PM Benign prostatic hyperplasia with lower urinary tract symptoms Jul 13 2020 10:02AM Other obstructive and reflux uropathy Jul 13 2020 10:02AM Debility Jul 13 2020 10:02AM Urge incontinence Jul 13 2020 10:02AM Urinary retention Jul 13 2020 10:02AM Urinary Tract Infection Jul 13 2020 10:02AM Urinary retention Jul 17 2020 7:57AM Impaired renal function Jul 17 2020 7:57AM CKD (chronic kidney disease) Jul 17 2020 7:57AM Urge Incontinence Aug 18 2020 3:05PM Incomplete bladder emptying Aug 18 2020 3:05PM Urinary Incontinence Nov 17 2020 2:56PM Late effects of CVA (cerebrovascular accident) Nov 17 2020 2:56PM Urinary retention Nov 17 2020 2:56PM Benign prostatic hyperplasia with lower urinary tract symptoms Nov 25 2020 2:07PM Other obstructive and reflux uropathy Nov 25 2020 2:07PM Hx of completed stroke Nov 25 2020 2:07PM Urinary retention Nov 25 2020 2:07PM Preop examination Nov 25 2020 2:17PM Urine retention Nov 25 2020 2:21PM Urine retention Jan 18 2021 2:58PM Preoperative clearance Jan 18 2021 3:10PM Uncontrolled diabetes mellitus Jan 21 2021 9:53AM Urinary retention Jan 21 2021 9:53AM Other specified complication of genitour inary prosthetic devices, implants and grafts, initial encounter Jan 21 2021 9:53AM Other specified disorders of urethra Jan 21 2021 9:53AM Preoperative examination Jan 21 2021 3:00PM Payers Insurance Name Company Name Plan Name Plan Number Policy Number Errol cy Group Number Start Date Medicare Part B Medicare Of [place] [id number] N/A Cigna Medicare Supplement Cigna Medicare Supplement [id number] N/A Aetna Better Health Aetna Better Health [id number] N/A Medicare RHC Medicare RHC [id number] N/ A BCBS [facility] [id number] 1985 Medicare RHC Medicare RHC [id number] Sa 2016 Medicare Part A Medicare - Lab/Xray [id number] N/A Medicare Part B Medicare [place] [id number] N/A History of Encounters Visit Date Visit Type Provider 01/18/2021 Procedures Ej Nair MD 11/25/2020 Procedures Ej Nair MD 11/17/2020 Office visit FARTUN MCCANN [facility] 11/06/2020 [facility] Ryan Moraes MD 08/18/2020 Office visit FARTUN MCCANN [facility] 07/13/2020 Office visit FARTUN MCCANN [facility] 07/03/2020 Hospital Ryan Moraes MD 06/23/2020 Office visit FARTUN MCCANN [employer] 06/17/2020 Laboratory Cindy VILLALPANDO RN 05/25/2020 Office visit Alex Etienne DO 05/14/2020 Office visit Alex Etienne DO 04/07/2020 Office visit Alex Etienne DO 01/22/2020 Hospital Rambo Lea MD 01/16/2020 [facility] Dez Sanderson MD 01/16/2020 Hospital FARTUN MCCANN [facility] 01/10/2020 Hospital Rambo Lea MD 01/09/2020 Office visit Cindy VILLALPANDO RN 01/03/2020 [facility] Renata Shepherd MD 01/02/2020 [facility] Ryan Moares MD 01/02/2020 [facility] Renata Shepherd MD 12/30/2019 Office visit Cindy VILLALPANDO RN 07/10/2019 Office visit Melonie Chu [facility] 05/09/2019 Office visit Alex Jaimie DO 03/18/2019 Office visit Melonie Chu [employer] [facility] 01/29/2019 Office visit Alex Jaimie DO 11/06/2018 Office visit Alex Jaimie DO 10/18/2018 Office visit Alex Jaimie DO 09/14/2018 Procedures Ej Nair MD 07/16/2018 Office visit Alex Jaimie DO 07/09/2018 Office visit Ej Nair MD 05/14/2018 Office visit Alex Jaimie DO 02/05/2018 Office visit Alex Jaimie DO 01/22/2018 Office visit Alex Jaimie DO 10/30/2017 Office visit Alex Jaimie DO 09/18/2017 Hospital Ryan Moraes MD 09/04/2017 Hospital Ryan Moraes MD 08/16/2017 [facility] Ryan Moraes MD 08/01/2017 Office visit Alex Jaimie DO 07/06/2017 Office visit Alex Jaimie DO 06/28/2017 [facility] Cresencio Palomino MD 06/27/2017 Hospital Ryan Moraes MD 05/09/2017 Office visit Melonie Chu [employer] [facility] 02/03/2017 Office visit Alex Jaimie DO 01/02/2017 Office visit Alex Jaimie DO 11/30/2016 Office visit Alex Jaimie DO 11/25/2016 Hospital Ryan Moraes MD 11/14/2015 [facility] Ryan Moraes MD 09/14/2015 Office visit Alex Jaimie DO 08/25/2015 Office visit Alex Jaimie DO 06/16/2015 Office visit Alex Jaimie DO 12/08/2014 Office visit Alex Jaimie DO 11/24/2014 Office visit Alex Jaimie DO 11/07/2014 Office visit Alex Jaimie DO 10/08/2014 Office visit Alex Jaimie DO 09/08/2014 Hospital Beatrice Robledo MD 09/05/2014 [facility] Jazmyne Alexandre MD 09/04/2014 [facility] Marilu Shipley MD 12/30/2013 Office visit Alex Jaimie DO 11/27/2012 Office visit Alex Jaimie DO 10/25/2012 Office visit Alex Jaimie DO 10/23/2012 Office visit Melonie Chu [employer] [facility] 07/30/2012 Office visit Melonie Chu [employer] 07/16/2012 Office visit Melonie Chu [employer] 10/07/2011 Office visit Tre Palm MD 09/12/2011 Office visit Tre Palm MD 09/02/2011 Office visit Tre Palm MD 08/29/2011 Office visit Tre Palm MD 08/09/2011 Office visit Tre Palm MD 07/01/2011 Office visit Melonie Chu [employer] [facility] 03/24/2011 Office visit Tre Palm MD 03/14/2011 Office visit Tre Palm MD 07/07/2010 Office visit Tre Palm MD 04/20/2010 Office visit Tre Palm MD 10/12/2009 Office visit Laura Milton MD 09/02/2009 Office visit Aruna JAEGER 03/23/2009 Voided Cresencio Sanchez MD 03/17/2009 Office visit Cresencio Sanchez MD
--- OUTSIDE RECORDS SUMMARY | 2021-01-30 02:49 | XMS REPORT ---
Author Rangel Barnes Organization [facility] Address [address] [place] [id number] Care Team Providers Care Brass Cleaner Name Role Phone Ej Nair PCP Alex [...] Start Date Expiration Date SIG Comments Augmentin 315125 mg oral tablet 09/02/2009 09/16/2009 take 1 [...] units by subcutaneous route once daily at dtiid pantoprazole 40 mg oral tablet,delayed release (DR/EC) [...] by oral route once daily not on half-way med list clindamycin HCl 150 mg oral [...] route once daily at bedtime not on half-way med list mupirocin 2 % topical ointment [...] Reviewed 10/23/2012 12:00 AM Toradol 60 Mg [facility]#[id number] Reviewed 10/23/2012 12:00 AM THER/PROPH/DIAG INJ SC/IM [...] 12:00 AM Bicillen CR 1.2 Mu (Karin) [facility]# [id number] 07-05 Reviewed 10/08/2014 12:00 AM Physical Therapy [...] Date Medicare Part B Medicare Of [place] [id number] N/A Cigna Medicare Supplement Cigna Medicare Supplement [id number] N/A Aetna Better Health Aetna Better Health [id number] N/A Medicare RHC Medicare RHC [id number] N/ A BCBS [facility]cbs [facility] [id number] 1984 Medicare RHC Medicare RHC [id number] Sa 2016 Medicare Part A Medicare - Lab/Xray [id number] N/A Medicare Part B Medicare Of [place] [id number] N/A History of Encounters Visit Date Visit Type Provider 01/18/2021 Procedures Ej Nair MD 11/25/2020 Procedures Ej Nair MD 11/17/2020 Office visit FARTUN MCCANN [employer] [facility] 11/06/2020 [facility] Ryan Moraes MD 08/18/2020 Office visit FARTUN MCCANN [employer] SPECIALIST 07/13/2020 Office visit FARTUN MCCANN [employer] SPECIALIST 07/03/2020 Hospital Ryan Moraes MD 06/23/2020 Office visit FARTUN MCCANN [employer] SPECIALIST 06/17/2020 Laboratory Cindy VILLALPANDO RN 05/25/2020 Office visit Alex Etienne DO 05/14/2020 Office visit Alex Etienne DO 04/07/2020 Office visit Alex Etienne DO 01/22/2020 Hospital Rambo eLa MD 01/16/2020 [facility] Dez Sanderson MD 01/16/2020 Hospital FARTUN MCCANN [employer] SPECIALIST 01/10/2020 Hospital Rambo Lea MD 01/09/2020 Office visit Cindy VILLALPANDO RN 01/03/2020 [facility] Renata Shepherd MD 01/02/2020 [facility] Ryan Moraes MD 01/02/2020 [facility] Renata Shepherd MD 12/30/2019 Office visit Cindy VILLALPANDO RN 07/10/2019 Office visit Melonie Chu MEDICAL RECORDS SPECIALIST 05/09/2019 Office visit Alex Jaimie DO 03/18/2019 Office visit Melonie Chu MEDICAL RECORDS SPECIALIST 01/29/2019 Office visit Alex Jaimie DO 11/06/2018 [...] MD 09/04/2017 Hospital Ryan Moraes MD 08/16/2017 [facility] Ryan Moraes MD 08/01/2017 Office visit Alex Jaimie DO 07/06/2017 Office visit Alex Jaimie DO 06/28/2017 [facility] Cresencio Palomino MD 06/27/2017 Hospital Ryan Moraes MD 05/09/2017 Office visit Melonie Chu MEDICAL RECORDS SPECIALIST 02/03/2017 Office visit Alex Jaimie DO 01/02/2017 Office visit Alex Jaimie DO 11/30/2016 Office visit Alex Jaimie DO 11/25/2016 Hospital Ryan Moraes MD 11/14/2015 [facility] Ryan Moraes MD 09/14/2015 Office visit Alex Jaimie DO 08/25/2015 Office visit Alex Jaimie DO 06/16/2015 Office visit Alex Jaimie DO 12/08/2014 Office visit Alex Jaimie DO 11/24/2014 Office visit Alex Jaimie DO 11/07/2014 Office visit Alex Jaimie DO 10/08/2014 Office visit Alex Jaimie DO 09/08/2014 Hospital Beatrice Robledo MD 09/05/2014 [facility] Jazmyne Alexandre MD 09/04/2014 [facility] Marilu Shipley MD 12/30/2013 Office visit Alex Jaimie DO 11/27/2012 Office visit Alex Jaimie DO 10/25/2012 Office visit Alex Jaimie DO 10/23/2012 Office visit Melonie Chu MEDICAL RECORDS SPECIALIST 07/30/2012 Office visit Melonie Chu MEDICAL RECORDS SPECIALIST 07/16/2012 Office visit Melonie Chu MEDICAL RECORDS SPECIALIST 10/07/2011 Office visit Tre Palm MD 09/12/2011 Office visit Tre Palm MD 09/02/2011 Office visit Tre Palm MD 08/29/2011 Office visit Tre Palm MD 08/09/2011 Office visit Tre Palm MD 07/01/2011 Office visit Melonie Chu MEDICAL RECORDS SPECIALIST 03/24/2011 Office visit Tre Palm MD 03/14/2011 Office visit Tre Palm MD 07/07/2010 Office visit Tre Palm MD 04/20/2010 Office visit Tre Palm MD 10/12/2009 Office visit Laura Milton MD 09/02/2009 Office visit Aruna JAEGER 03/23/2009 Voided Cresencio Sanchez MD 03/17/2009 Office visit Cresencio Sanchez MD
--- OUTSIDE RECORDS SUMMARY | 2021-01-30 02:49 | XMS REPORT ---
Author Rangel Barnes Organization [facility] oup Address [address] [place] [id number] Care Team Providers Care Properties Supervisor Name Role Phone Ej Nair PCP Alex [...] Start Date Expiration Date SIG Comments Augmentin 535125 mg oral tablet 09/02/2009 09/16/2009 take 1 [...] units by subcutaneous route once daily at dtiin pantoprazole 40 mg oral tablet,delayed release (DR/EC) [...] by oral route once daily not on long-term med list clindamycin HCl 150 mg oral [...] route once daily at bedtime not on long-term med list mupirocin 2 % topical ointment [...] Reviewed 10/23/2012 12:00 AM Toradol 60 Mg [facility]#[id number] Reviewed 10/23/2012 12:00 AM THER/PROPH/DIAG INJ SC/IM [...] 12:00 AM Bicillen CR 1.2 Mu (Karin) [facility]# [id number] 07-05 Reviewed 10/08/2014 12:00 AM Physical Therapy [...] Date Medicare Part B Medicare [place] [id number] N/A Cigna Medicare Supplement Cigna Medicare Supplement [id number] N/A Aetna Better Health Aetna Better Health [id number] N/A Medicare RHC Medicare RHC [id number] N/ A BCBS Bc[facility] [id number] 1985 Medicare RHC Medicare RHC [id number] Sa 2016 Medicare Part A Medicare - Lab/Xray [id number] N/A Medicare Part B Medicare [place] [id number] N/A History of Encounters Visit Date Visit Type Provider 01/18/2021 Procedures Ej Nair MD 11/25/2020 Procedures Ej Nair MD 11/17/2020 Office visit FARTUN MCCANN BONSAI TENDER 11/06/2020 [facility] Ryan Moraes MD 08/18/2020 Office visit FARTUN MCCANN BONSAI TENDER 07/13/2020 Office visit FARTUN MCCANN BONSAI TENDER 07/03/2020 Hospital Ryan Moraes MD 06/23/2020 Office visit FARTUN MCCANN BONSAI TENDER 06/17/2020 Laboratory Cindy VILLALPANDO RN 05/25/2020 Office visit Alex Etienne DO 05/14/2020 Office visit Alex Etienne DO 04/07/2020 Office visit Alex Etienne DO 01/22/2020 Hospital Rambo Lea MD 01/16/2020 [facility] Dez Sanderson MD 01/16/2020 Hospital FARTUN MCCANN BONSAI TENDER 01/10/2020 Hospital Rambo Lea MD 01/09/2020 Office visit Cindy VILLALPANDO RN 01/03/2020 [facility] Renata Shepherd MD 01/02/2020 [facility] Ryan Moraes MD 01/02/2020 [facility] Renata Shepherd MD 12/30/2019 Office visit Cindy VILLALPANDO RN 07/10/2019 Office visit Melonie Chu BONSAI TENDER 05/09/2019 Office visit Alex Jaimie DO 03/18/2019 Office visit Melonie Chu BONSAI TENDER 01/29/2019 Office visit Laex Jaimie DO 11/06/2018 Office visit Alex Jaimie [...] MD 09/04/2017 Hospital Ryan Moraes MD 08/16/2017 [facility] Ryan Moraes MD 08/01/2017 Office visit Alex Jaimie DO 07/06/2017 Office visit Alex Jaimie DO 06/28/2017 [facility] Cresencio Palomino MD 06/27/2017 Hospital Ryan Moraes MD 05/09/2017 Office visit Melonie Chu BONSAI TENDER 02/03/2017 Office visit Alex Jaimie DO 01/02/2017 Office visit Alex Jaimie DO 11/30/2016 Office visit Alex Jaimie DO 11/25/2016 Hospital Ryan Moraes MD 11/14/2015 [facility] Ryan Moraes MD 09/14/2015 Office visit Alex Jaimie DO 08/25/2015 Office visit Alex Jaimie DO 06/16/2015 Office visit Alex Jaimie DO 12/08/2014 Office visit Alex Jaimie DO 11/24/2014 Office visit Alex Jaimie DO 11/07/2014 Office visit Alex Jaimie DO 10/08/2014 Office visit Alex Jaimie DO 09/08/2014 Hospital Beatrice Robledo MD 09/05/2014 [facility] Jazmyne Alexandre MD 09/04/2014 [facility] Marilu Shipley MD 12/30/2013 Office visit Alex Jaimie DO 11/27/2012 Office visit Alex Jaimie DO 10/25/2012 Office visit Alex Jaimie DO 10/23/2012 Office visit Melonie Chu BONSAI TENDER 07/30/2012 Office visit Melonie Chu BONSAI TENDER 07/16/2012 Office visit Melonie Chu BONSAI TENDER 10/07/2011 Office visit Tre Palm MD 09/12/2011 Office visit Tre Palm MD 09/02/2011 Office visit Tre Palm MD 08/29/2011 Office visit Tre Palm MD 08/09/2011 Office visit Tre Palm MD 07/01/2011 Office visit Melonie Chu BONSAI TENDER 03/24/2011 Office visit Tre Palm MD 03/14/2011 Office visit Tre Palm MD 07/07/2010 Office visit Tre Palm MD 04/20/2010 Office visit Tre Palm MD 10/12/2009 Office visit Laura Milton MD 09/02/2009 Office visit Aruna JAEGER 03/23/2009 Voided Cresencio Sanchez MD 03/17/2009 Office visit Cresencio Sanchez MD
--- OUTSIDE RECORDS SUMMARY | 2021-01-30 02:50 | XMS REPORT ---
Author Rangel Barnes Organization [facility] Phys[facility] oup Address [address] [place] [id number] Care Team Providers Care Manager Printing Name Role Phone Ej Nair PCP Alex [...] W/MICRO C&S IF IND 11/17/2020 12:00 AM CBC W/ AUTO DIFF (RFLX MAN DIFF IF IND). 01/18/2021 12:00 AM EKG. 01/18/2021 12:00 AM HGB A1C 01/18/2021 12:00 AM Medications Active Name Start [...] 3 times per day after meals PRN cephalexin oral tablet 250 mg 01/18/2021 01/25/2021 ta ke 1 tablet by oral route daily for 7 days Name Start Date Expiration Date SIG Comments Augmentin 875-125 mg oral tablet 09/02/2009 09/16/2009 take 1 [...] oral route once daily for 7 days Discontinued Name Start [...] units by subcutaneous route once daily at be dtime pantoprazole 40 mg oral tablet,delayed release (DR/EC) [...] by oral route once daily not on [facility] clindamycin HCl 150 mg oral [...] route once daily at bedtime not on [facility] med list mupirocin 2 % topical ointment [...] week Problem List Description Status Onset Diabetes Mellitus, Type II Active Hyperlipidemia, Mixed Active 10/28/2012 History [...] Reviewed 10/23/2012 12:00 AM Toradol 60 Mg [facility]#[id number] Reviewed 10/23/2012 12:00 AM THER/PROPH/DIAG INJ SC/IM [...] GLYCOSYLATED HEMOGLOBIN TEST Reviewed 01/18/2021 12:00 AM METABOLIC PANEL TOTAL CA Reviewed 04/20/2010 12:00 AM CHEST X-RAY 2VW FRONTAL&LATL Reviewed 07/07/2010 12:00 AM THER/PROPH/DIAG INJ SC/IM Reviewed 07/07/2010 12:00 AM Bicillen CR 1.2 Mu (Karin) [facility]# [id number] 07-05 Reviewed 10/08/2014 12:00 AM Physical Therapy [...] AA 48 eGFR 40 mL/min/1.73meGFR AA* 48 mL/min/1.73m History Of Immunizations Not available. History of Past Illness Name Date of Onset Comments Diabetes Mellitus, Type II Tests 3 times a day Diabetes [...] disorders of urethra Jan 21 2021 9:53AM Payers Insurance Name Company Name Plan Name Plan Number Policy Number Errol cy Group Number Start Date Medicare Part B Medicare [place] [id number] N/A Cigna Medicare Supplement Cigna Medicare Supplement [id number] N/A Aetna Better Health Aetna Better Health [id number] N/A Medicare RHC Medicare RHC [id number] N/ A [id number] 1985 Medicare RHC Medicare RHC [id number] Sa 2016 Medicare Part A Medicare - Lab/Xray [id number] N/A Medicare Part B Medicare [place] [id number] N/A History of Encounters Visit Date Visit Type Provider 01/18/2021 Procedures Ej Nair MD 11/25/2020 Procedures Ej Nair MD 11/17/2020 Office visit FARTUN MCCANN MARKET INTELLIGENCE CONSULTANT 11/06/2020 Hospital Ryan Moraes MD 08/18/2020 Office visit FARTUN MCCANN MARKET INTELLIGENCE CONSULTANT 07/13/2020 Office visit FARTUN MCCANN MARKET INTELLIGENCE CONSULTANT 07/03/2020 Hospital Ryan Moraes MD 06/23/2020 Office visit FARTUN MCCANN MARKET INTELLIGENCE CONSULTANT 06/17/2020 Laboratory Cindy VILLALPANDO RN 05/25/2020 Office visit Alex Jaimie DO 05/14/2020 Office visit Alex Jaimie DO 04/07/2020 Office visit Alex Jaimie DO 01/22/2020 Hospital Rambo Lea MD 01/16/2020 Hospital Dez Sanderson MD 01/16/2020 [facility] FARTUN MCCANN MARKET INTELLIGENCE CONSULTANT 01/10/2020 [facility] Rambo Lea MD 01/09/2020 Office visit Cindy VILLALPANDO RN 01/03/2020 [facility] Renata Shepherd MD 01/02/2020 [facility] Ryan Moraes MD 01/02/2020 [facility] Renata Shepherd MD 12/30/2019 Office visit Cindy VILLALPANDO RN 07/10/2019 Office visit Melonie Chu MARKET INTELLIGENCE CONSULTANT 05/09/2019 Office visit Alex Jaimie DO 03/18/2019 Office visit Melonie Chu MARKET INTELLIGENCE CONSULTANT 01/29/2019 Office visit Alex Jamiie DO 11/06/2018 Office visit Alex Jaimie DO 10/18/2018 Office visit Alex Jaimie DO 09/14/2018 Procedures Ej Nair MD 07/16/2018 Office visit Alex Jaimie DO 07/09/2018 Office visit Ej Nair MD 05/14/2018 Office visit Alex Jaimie DO 02/05/2018 Office visit Alex Jaimie DO 01/22/2018 Office visit Alex Jaimie DO 10/30/2017 Office visit Alex Jaimie DO 09/18/2017 Hospital Ryan Moraes MD 09/04/2017 [facility] Ryan Moraes MD 08/16/2017 [facility] Ryan Moraes MD 08/01/2017 Office visit Alex Jaimie DO 07/06/2017 Office visit Alex Jaimie DO 06/28/2017 [facility] Cresencio Palomino MD 06/27/2017 Hospital Ryan Moraes MD 05/09/2017 Office visit Melonie Chu MARKET INTELLIGENCE CONSULTANT 02/03/2017 Office visit Alex Jaimie DO 01/02/2017 Office visit Alex Jaimie DO 11/30/2016 Office visit Alex Jaimie DO 11/25/2016 Hospital Ryan Moraes MD 11/14/2015 Hospital Ryan Moraes MD 09/14/2015 Office visit Alex Jaimie DO 08/25/2015 Office visit Alex Jaimie DO 06/16/2015 Office visit Alex Jaimie DO 12/08/2014 Office visit Alex Jaimie DO 11/24/2014 Office visit Alex Jaimie DO 11/07/2014 Office visit Alex Jaimie DO 10/08/2014 Office visit Alex Jaimie DO 09/08/2014 [facility] Beatrice Robledo MD 09/05/2014 [facility] Jazmyne Alexandre MD 09/04/2014 [facility] Marilu Shipley MD 12/30/2013 Office visit Alex Jaimie DO 11/27/2012 Office visit Alex Jaimie DO 10/25/2012 Office visit Alex Jaimie DO 10/23/2012 Office visit Melonie Chu MARKET INTELLIGENCE CONSULTANT 07/30/2012 Office visit Melonie Chu MARKET INTELLIGENCE CONSULTANT 07/16/2012 Office visit Melonie Chu MARKET INTELLIGENCE CONSULTANT 10/07/2011 Office visit Tre Palm MD 09/12/2011 Office visit Tre Palm MD 09/02/2011 Office visit Tre Palm MD 08/29/2011 Office visit Tre Palm MD 08/09/2011 Office visit Tre Palm MD 07/01/2011 Office visit Melonie Chu MARKET INTELLIGENCE CONSULTANT 03/24/2011 Office visit Tre Palm MD 03/14/2011 Office visit Tre Palm MD 07/07/2010 Office visit Tre Palm MD 04/20/2010 Office visit Tre Palm MD 10/12/2009 Office visit Laura Milton MD 09/02/2009 Office visit Aruna JAEGER 03/23/2009 Voided Cresencio Sanchez MD 03/17/2009 Office visit Cresencio Sanchez MD
--- OUTSIDE RECORDS SUMMARY | 2021-01-30 02:50 | XMS REPORT ---
Author Rangel Barnes Organization [facility] oup Address [address] [place] [id number] Care Team Providers Care Mason Tender Name Role Phone Ej Nair PCP Alex [...] 01/18/2021 12:00 AM EKG. 01/18/2021 12:00 AM Medications [...] units by subcutaneous route once daily at dtiky pantoprazole 40 mg oral tablet,delayed release (DR/EC) [...] Reviewed 10/23/2012 12:00 AM Toradol 60 Mg [facility]#[id number] Reviewed 10/23/2012 12:00 AM THER/PROPH/DIAG INJ SC/IM [...] 01/18/2021 12:00 AM GLYCOSYLATED HEMOGLOBIN TEST Reviewed 04/20/2010 12:00 AM CHEST X-RAY 2VW FRONTAL&LATL Reviewed 07/07/2010 12:00 AM THER/PROPH/DIAG INJ SC/IM Reviewed 07/07/2010 12:00 AM Bicillen CR 1.2 Mu (Karin) [facility]# [id number] 07-05 Reviewed 10/08/2014 12:00 AM Physical Therapy [...] mL/min/1.73mHGB A1C 8.30 %Est Avg Glucose 191.5 History Of Immunizations Not available. History of [...] Date Medicare Part B Medicare [place] [id number] N/A Cigna Medicare Supplement Cigna Medicare Supplement [id number] N/A Aetna Better Health Aetna Better Health [id number] N/A Medicare RHC Medicare RHC [id number] N/ [id number] 1985 Medicare RHC Medicare RHC [id number] 2016 Medicare Part A Medicare - Lab/Xray [id number] N/A Medicare Part B Medicare [place] [id number] N/A History of Encounters Visit Date Visit Type Provider 01/18/2021 Procedures Ej Nair MD 11/25/2020 Procedures Ej Nair MD 11/17/2020 Office visit FARTUN MCCANN RESTAURANT WORKER 11/06/2020 Hospital Ryan Moraes MD 08/18/2020 Office visit FARTUN MCCANN RESTAURANT WORKER 07/13/2020 Office visit FARTUN MCCANN RESTAURANT WORKER 07/03/2020 Hospital Ryan Moraes MD 06/23/2020 Office visit FARTUN MCCANN RESTAURANT WORKER 06/17/2020 Laboratory Cindy VILLALPANDO RN 05/25/2020 Office visit Alex Jaimie DO 05/14/2020 Office visit Alex Jaimie DO 04/07/2020 Office visit Alex Jaimie DO 01/22/2020 Hospital Rambo Lea MD 01/16/2020 [facility] Dez Sanderson MD 01/16/2020 [facility] FARTUN MCCANN RESTAURANT WORKER 01/10/2020 [facility] Rambo Lea MD 01/09/2020 Office visit Cindy VILLALPANDO RN 01/03/2020 [facility] Renata Shepherd MD 01/02/2020 [facility] Ryan Moraes MD 01/02/2020 [facility] Renata Shepherd MD 12/30/2019 Office visit Cindy VILLALPANDO RN 07/10/2019 Office visit Melonie Chu RESTAURANT WORKER 05/09/2019 Office visit Alex Etienne DO 03/18/2019 Office visit Melonie Chu RESTAURANT WORKER 01/29/2019 Office visit Alex Jaimie DO 11/06/2018 [...] MD 09/04/2017 Hospital Ryan Moraes MD 08/16/2017 Hospital Ryan Moraes MD 08/01/2017 Office visit Alex Etienne DO 07/06/2017 Office visit Alex Jaimie DO 06/28/2017 Hospital Cresencio Palomino MD 06/27/2017 Hospital Ryan Moraes MD 05/09/2017 Office visit Melonie Chu RESTAURANT WORKER 02/03/2017 Office visit Alex Jaimie DO 01/02/2017 [...] Jaimie DO 09/08/2014 [facility] Beatrice Robledo MD 09/05/2014 [facility] Jazmyne Alexandre MD 09/04/2014 [facility] Marilu Shipley MD 12/30/2013 Office visit Alex Jaimie DO 11/27/2012 Office visit Alex Jaimie DO 10/25/2012 Office visit Alex Jaimie DO 10/23/2012 Office visit Melonie Chu RESTAURANT WORKER 07/30/2012 Office visit Melonie Chu RESTAURANT WORKER 07/16/2012 Office visit Melonie Chu RESTAURANT WORKER 10/07/2011 Office visit Tre Palm MD 09/12/2011 Office visit Tre Palm MD 09/02/2011 Office visit Tre Palm MD 08/29/2011 Office visit Tre Palm MD 08/09/2011 Office visit Tre Palm MD 07/01/2011 Office visit Melonie Chu RESTAURANT WORKER 03/24/2011 Office visit Tre Palm MD 03/14/2011 Office visit Tre Palm MD 07/07/2010 Office visit rTe Palm MD 04/20/2010 Office visit Tre Palm MD 10/12/2009 Office visit Laura Milton MD 09/02/2009 Office visit Aruna JAEGER 03/23/2009 Voided Cresencio Sanchez MD 03/17/2009 Office visit Cresencio Sanchez MD
--- OUTSIDE RECORDS SUMMARY | 2021-01-30 02:50 | XMS REPORT ---
Author Rangel Barnes Organization [facility] Phys[facility] oup Address [address] [place] [id number] Care Team Providers Care Family Worker Name Role Phone Ej Nair PCP Alex [...] by oral route once daily not on [facility] med [facility] clindamycin HCl 150 mg oral [...] route once daily at bedtime not on [facility] med [facility] mupirocin 2 % topical ointment [...] Reviewed 10/23/2012 12:00 AM Toradol [address] [facility]#[id number] Reviewed 10/23/2012 12:00 AM THER/PROPH/DIAG INJ SC/IM [...] 12:00 AM Bicillen CR 1.2 Mu (Karin) [facility]# [id number] 07-05 Reviewed 10/08/2014 12:00 AM Physical Therapy [...] Date Medicare Part B Medicare [place] [id number] N/A Cigna Medicare Supplement Cigna Medicare Supplement [id number] N/A Aetna Better Health Aetna Better Health [id number] 3 N/A Medicare RHC Medicare RHC [id number] N/ [id number] 1985 Medicare RHC Medicare RHC [id number] 2016 Medicare Part A Medicare - Lab/Xray [id number] N/A Medicare Part B Medicare Of [place] [id number] N/A History of Encounters Visit Date Visit Type Provider 01/18/2021 Procedures Ej Nair MD 11/25/2020 Procedures Ej Nair MD 11/17/2020 Office visit FARTUN MCCANN PROCESS AREA SUPERVISOR 11/06/2020 Hospital Ryan Moraes MD 08/18/2020 Office visit FARTUN MCCANN PROCESS AREA SUPERVISOR 07/13/2020 Office visit FARTUN MCCANN PROCESS AREA SUPERVISOR 07/03/2020 Hospital Ryan Moraes MD 06/23/2020 Office visit FARTUN MCCANN PROCESS AREA SUPERVISOR 06/17/2020 Laboratory Cindy VILLALPANDO RN 05/25/2020 Office visit Alex Jaimie DO 05/14/2020 Office visit Alex Jaimie DO 04/07/2020 Office visit Alex Jaimie DO 01/22/2020 Hospital Rambo Lea MD 01/16/2020 [facility] Dez Sanderson MD 01/16/2020 [facility] FARTUN MCCANN PROCESS AREA SUPERVISOR 01/10/2020 [facility] Rambo Lea MD 01/09/2020 Office visit Cindy VILLALPANDO RN 01/03/2020 [facility] Renata Shepherd MD 01/02/2020 [facility] Ryan Moraes MD 01/02/2020 [facility] Renata Shepherd MD 12/30/2019 Office visit Cindy VILLALPANDO RN 07/10/2019 Office visit Melonie Chu PROCESS AREA SUPERVISOR 05/09/2019 Office visit Alex Etienne DO 03/18/2019 Office visit Melonie Chu PROCESS AREA SUPERVISOR 01/29/2019 Office visit Alex Jaimie DO 11/06/2018 [...] Moraes MD 05/09/2017 Office visit Melonie Chu PROCESS AREA SUPERVISOR 02/03/2017 Office visit Alex Jaimie DO 01/02/2017 [...] 10/08/2014 Office visit Alex Jaimie DO 09/08/2014 [facility] Beatrice Robledo MD 09/05/2014 [facility] Jazmyne Alexandre MD 09/04/2014 [facility] Marilu Shipley MD 12/30/2013 Office visit Alxe Jaimie DO 11/27/2012 Office visit Alex Jaimie DO 10/25/2012 Office visit Alex Jaimie DO 10/23/2012 Office visit Melonie Chu PROCESS AREA SUPERVISOR 07/30/2012 Office visit Melonie Chu PROCESS AREA SUPERVISOR 07/16/2012 Office visit Melonie Chu PROCESS AREA SUPERVISOR 10/07/2011 Office visit Tre Palm MD 09/12/2011 Office visit Tre Palm MD 09/02/2011 Office visit Tre Palm MD 08/29/2011 Office visit Tre Palm MD 08/09/2011 Office visit Tre Palm MD 07/01/2011 Office visit Melonie Chu PROCESS AREA SUPERVISOR 03/24/2011 Office visit Tre Palm MD 03/14/2011 Office visit Tre Palm MD 07/07/2010 Office visit Tre Palm MD 04/20/2010 Office visit Tre Palm MD 10/12/2009 Office visit Laura Milton MD 09/02/2009 Office visit Aruna JAEGER 03/23/2009 Voided Cresencio Sanchez MD 03/17/2009 Office visit Cresencio Sanchez MD
--- OUTSIDE RECORDS SUMMARY | 2021-01-30 02:51 | XMS REPORT ---
Author Rangel Barnes Organization [facility] Physicians oup Address [address] [place] [id number] Care Team Providers Care Log Haul Chain Feeder Name Role Phone Ej Nair PCP Alex [...] MAN DIFF IF IND). 01/18/2021 12:00 AM BMP 01/18/2021 12:00 AM EKG. 01/18/2021 12:00 AM [...] pantoprazole 40 mg oral tablet,delayed release (DR/EC) 07/06/2017 take 1 tablet by oral route [...] by oral route once daily not on senior living med list clindamycin HCl 150 mg oral [...] route once daily at bedtime not on senior living med list mupirocin 2 % topical ointment [...] Reviewed 10/23/2012 12:00 AM Toradol 60 Mg [facility]#[id number] Reviewed 10/23/2012 12:00 AM THER/PROPH/DIAG INJ SC/IM [...] 11/25/2020 12:00 AM GLYCOSYLATED HEMOGLOBIN TEST Reviewed 04/20/2010 12:00 AM CHEST X-RAY 2VW FRONTAL&LATL Reviewed 07/07/2010 12:00 AM THER/PROPH/DIAG INJ SC/IM Reviewed 07/07/2010 12:00 AM Bicillen CR 1.2 Mu (Karin) [facility]# [id number] 07-05 Reviewed 10/08/2014 12:00 AM Physical Therapy [...] 0.41 #BASO 0.08 MANUAL DIFF NOT IND History Of Immunizations Not available. History of [...] 2:58PM Preoperative clearance Jan 18 2021 3:10PM Payers Insurance Name Company Name Plan Name Plan Number Policy Number Errol cy Group Number Start Date Medicare Part B Medicare [place] [id number] N/A Cigna Medicare Supplement Cigna Medicare Supplement [id number] N/A Aetna Better Health Aetna Better Health [id number] 3 N/A Medicare RHC Medicare RHC [id number] N/ A [id number] 1985 Medicare RHC Medicare RHC [id number] Sa 2016 Medicare Part A Medicare - Lab/Xray [id number] N/A Medicare Part B Medicare Of [place] [id number] N/A History of Encounters Visit Date Visit Type Provider 01/18/2021 Procedures Ej Nair MD 11/25/2020 Procedures Ej Nair MD 11/17/2020 Office visit FARTUN MCCANN STAFF WRITER 11/06/2020 [facility] Ryan Moraes MD 08/18/2020 Office visit FARTUN MCCANN STAFF WRITER 07/13/2020 Office visit FARTUN MCCANN STAFF WRITER 07/03/2020 Hospital Ryan Moraes MD 06/23/2020 Office visit FARTUN MCCANN STAFF WRITER 06/17/2020 Laboratory Cindy VILLALPANDO RN 05/25/2020 Office visit Alex Etienne DO 05/14/2020 Office visit Alex Etienne DO 04/07/2020 Office visit Alex Etienne DO 01/22/2020 Hospital Rambo Lea MD 01/16/2020 [facility] Dez Sanderson MD 01/16/2020 [facility] FARTUN MCCANN STAFF WRITER 01/10/2020 [facility] Rambo Lea MD 01/09/2020 Office visit Cindy VILLALPANDO RN 01/03/2020 Hospital Renata Shepherd MD 01/02/2020 [facility] Ryan Moraes MD 01/02/2020 [facility] Renata Shepherd MD 12/30/2019 Office visit Cindy VILLALPANDO RN 07/10/2019 Office visit Melonie Chu STAFF WRITER 05/09/2019 Office visit Alex Jaimie DO 03/18/2019 Office visit Melonie Chu STAFF WRITER 01/29/2019 Office visit Alex Jaimie DO 11/06/2018 [...] 07/06/2017 Office visit Alex Jaimie DO 06/28/2017 [facility] Cresencio Palomino MD 06/27/2017 Hospital Ryan Moraes MD 05/09/2017 Office visit Melonie Chu STAFF WRITER 02/03/2017 Office visit Alex Jaimie DO 01/02/2017 [...] Alex Jaimie DO 10/08/2014 Office visit Alex Etienne DO 09/08/2014 Hospital Beatrice Robledo MD 09/05/2014 [facility] Jazmyne Alexandre MD 09/04/2014 [facility] Marilu Shipley MD 12/30/2013 Office visit Alex Etienne DO 11/27/2012 Office visit Alex Etienne DO 10/25/2012 Office visit Alex Etienne DO 10/23/2012 Office visit Melonie Chu STAFF WRITER 07/30/2012 Office visit Melonie Chu STAFF WRITER 07/16/2012 Office visit Melonie Chu STAFF WRITER 10/07/2011 Office visit Tre Palm MD 09/12/2011 Office visit Tre Palm MD 09/02/2011 Office visit Tre Palm MD 08/29/2011 Office visit Tre Palm MD 08/09/2011 Office visit Tre Palm MD 07/01/2011 Office visit Melonie Chu STAFF WRITER 03/24/2011 Office visit Tre Palm MD 03/14/2011 Office visit Tre Palm MD 07/07/2010 Office visit Tre Palm MD 04/20/2010 Office visit Tre Palm MD 10/12/2009 Office visit Laura Milton MD 09/02/2009 Office visit Aruna JAEGER 03/23/2009 Voided Cresencio Sanchez MD 03/17/2009 Office visit Cresencio Sanchez MD
--- OUTSIDE RECORDS SUMMARY | 2021-01-30 02:51 | XMS REPORT ---
Author Rangel Barnes Organization [facility] Physicians oup Address [address] [place] [id number] Care Team Providers Care Vehicle Return Associate Name Role Phone Ej Nair PCP Alex [...] by oral route once daily not on residential med list clindamycin HCl 150 mg oral [...] route once daily at bedtime not on residential med list mupirocin 2 % topical ointment [...] Reviewed 10/23/2012 12:00 AM Toradol 60 Mg [facility]#9029-8473-91 Reviewed 10/23/2012 12:00 AM THER/PROPH/DIAG INJ SC/IM [...] 12:00 AM Bicillen CR 1.2 Mu (Karin) [facility]# [id number] 07-05 Reviewed 10/08/2014 12:00 AM Physical Therapy [...] Date Medicare Part B Medicare Of [place] [id number] N/A Cigna Medicare Supplement Cigna Medicare Supplement [id number] N/A Aetna Better Health Aetna Better Health [id number] 3 N/A Medicare RHC Medicare RHC [id number] N/ A BCBS [facility] [id number] 1985 Medicare RHC Medicare RHC [id number] 2016 Medicare Part A Medicare - Lab/Xray [id number] N/A Medicare Part B Medicare Of [place] [id number] N/A History of Encounters Visit Date Visit Type Provider 01/18/2021 Procedures Ej Nair MD 11/25/2020 Procedures Ej Nair MD 11/17/2020 Office visit FARTUN MCCANN LIMNOLOGY TEACHER 11/06/2020 [facility] Ryan Moraes MD 08/18/2020 Office visit FARTUN MCCANN LIMNOLOGY TEACHER 07/13/2020 Office visit FARTUN MCCANN LIMNOLOGY TEACHER 07/03/2020 Hospital Ryan Moraes MD 06/23/2020 Office visit FARTUN MCCANN LIMNOLOGY TEACHER 06/17/2020 Laboratory Cindy VILLALPANDO RN 05/25/2020 Office visit Alex Etienne DO 05/14/2020 Office visit Alex Etienne DO 04/07/2020 Office visit Alex Etienne DO 01/22/2020 [facility] Rambo Lea MD 01/16/2020 [facility] Dez Sanderson MD 01/16/2020 [facility] FARTUN UyenIfrah MCCANN LIMNOLOGY TEACHER 01/10/2020 Hospital Rambo Lea MD 01/09/2020 Office visit Cindy VILLALPANDO RN 01/03/2020 [facility] Renata Shepherd MD 01/02/2020 [facility] Ryan Moraes MD 01/02/2020 [facility] Renata Shepherd MD 12/30/2019 Office visit Cindy VILLALPANDO RN 07/10/2019 Office visit Melonie Chu LIMNOLOGY TEACHER 05/09/2019 Office visit Alex Jaimie DO 03/18/2019 Office visit Melonie Chu LIMNOLOGY TEACHER 01/29/2019 Office visit Alex Jaimie DO 11/06/2018 Office visit Alex Jaimie DO 10/18/2018 Office visit Alex Jaimie DO 09/14/2018 [facility] Ej Nair MD 07/16/2018 Office visit Alex Jaimie DO 07/09/2018 Office visit Ej Nair MD 05/14/2018 Office visit Alex Jaimie DO 02/05/2018 Office visit Alex Jaimie DO 01/22/2018 Office visit Alex Jaimie DO 10/30/2017 Office visit Alex Jaimie DO 09/18/2017 Hospital Ryan Moraes MD 09/04/2017 [facility] Ryan Moraes MD 08/16/2017 [facility] Ryan Moraes MD 08/01/2017 Office visit Alex Jaimie DO 07/06/2017 Office visit Alex Jaimie DO 06/28/2017 [facility] Cresencio Palomino MD 06/27/2017 Hospital Ryan Moraes MD 05/09/2017 Office visit Melonie Chu LIMNOLOGY TEACHER 02/03/2017 Office visit Alex Jaimie DO 01/02/2017 Office visit Alex Jaimie DO 11/30/2016 Office visit Alex Jaimie DO 11/25/2016 Hospital Ryan Moraes MD 11/14/2015 [facility] Ryan Moraes MD 09/14/2015 Office visit Alex Jaimie DO 08/25/2015 Office visit Alex Jaimie DO 06/16/2015 Office visit Alex Jaimie DO 12/08/2014 Office visit Alex Jaimie DO 11/24/2014 Office visit Alex Jaimie DO 11/07/2014 Office visit Alex Jaimie DO 10/08/2014 Office visit Alex Etienne DO 09/08/2014 Hospital Beatrice Robledo MD 09/05/2014 [facility] Jazmyne Alexandre MD 09/04/2014 [facility] Marilu Shipley MD 12/30/2013 Office visit Alex Etienne DO 11/27/2012 Office visit Alex Etienne DO 10/25/2012 Office visit Alex Etienne DO 10/23/2012 Office visit Melonie Chu LIMNOLOGY TEACHER 07/30/2012 Office visit Melonie Chu LIMNOLOGY TEACHER 07/16/2012 Office visit Melonie Chu LIMNOLOGY TEACHER 10/07/2011 Office visit Tre Palm MD 09/12/2011 Office visit Tre Palm MD 09/02/2011 Office visit Tre Palm MD 08/29/2011 Office visit Tre Palm MD 08/09/2011 Office visit Tre Palm MD 07/01/2011 Office visit Melonie Chu LIMNOLOGY TEACHER 03/24/2011 Office visit Tre Palm MD 03/14/2011 Office visit Tre Palm MD 07/07/2010 Office visit Tre Palm MD 04/20/2010 Office visit Tre Palm MD 10/12/2009 Office visit Laura Milton MD 09/02/2009 Office visit Aruna JAEGER 03/23/2009 Voided Cresencio Sanchez MD 03/17/2009 Office visit Cresencio Sanchez MD
--- OUTSIDE RECORDS SUMMARY | 2021-01-30 02:51 | XMS REPORT ---
Author Rangel Barnes Organization [facility] Physicians oup Address [address] [place] [id number] Care Team Providers Care Mail Clerk Bills Name Role Phone Ej Nair PCP Alex [...] by oral route once daily not on group home med list clindamycin HCl 150 mg oral [...] route once daily at bedtime not on group home med list mupirocin 2 % topical ointment [...] Reviewed 10/23/2012 12:00 AM Toradol 60 Mg [facility]#[id number] Reviewed 10/23/2012 12:00 AM THER/PROPH/DIAG INJ SC/IM [...] 12:00 AM Bicillen CR 1.2 Mu (Karin) [facility]# [id number] 07-05 Reviewed 10/08/2014 12:00 AM Physical Therapy [...] Date Medicare Part B Medicare Of [place] [id number] N/A Cigna Medicare Supplement Cigna Medicare Supplement [id number] N/A Aetna Better Health Aetna Better Health [id number] 3 N/A Medicare RHC Medicare RHC [id number] N/ A BCBS [facility] [id number] December 24, 1984 Medicare RHC Medicare RHC [id number] December 24, 2016 Medicare Part A Medicare - Lab/Xray [id number] N/A Medicare Part B Medicare Of [place] [id number] N/A History of Encounters Visit Date Visit Type Provider 01/18/2021 Procedures Ej Nair MD 11/25/2020 Procedures Ej Nair MD 11/17/2020 Office visit FARTUN MCCANN BORING MILL OPERATOR FOR METAL 11/06/2020 [facility] Ryan Moraes MD 08/18/2020 Office visit FARTUN MCCANN BORING MILL OPERATOR FOR METAL 07/13/2020 Office visit FARTUN MCCANN BORING MILL OPERATOR FOR METAL 07/03/2020 Hospital Ryan Moraes MD 06/23/2020 Office visit FARTUN MCCANN BORING MILL OPERATOR FOR METAL 06/17/2020 Laboratory Cindy VILLALPANDO RN 05/25/2020 Office visit Alex Etienne DO 05/14/2020 Office visit Alex Etienne DO 04/07/2020 Office visit Alex Etienne DO 01/22/2020 [facility] Rambo Lea MD 01/16/2020 [facility] Dez Sanderson MD 01/16/2020 [facility] FARTUN UyenIfrah MCCANN BORING MILL OPERATOR FOR METAL 01/10/2020 Hospital Rambo Lea MD 01/09/2020 Office visit Cindy VILLALPANDO RN 01/03/2020 [facility] Renata Shepherd MD 01/02/2020 [facility] Ryan Moraes MD 01/02/2020 [facility] Renata Shepherd MD 12/30/2019 Office visit Cindy VILLALPANDO RN 07/10/2019 Office visit Melonie Chu BORING MILL OPERATOR FOR METAL 05/09/2019 Office visit Alex Jaimie DO 03/18/2019 Office visit Melonie Chu BORING MILL OPERATOR FOR METAL 01/29/2019 Office visit Alex Jaimie DO 11/06/2018 Office visit Alex Jaimie DO 10/18/2018 Office visit Alex Jaimie DO 09/14/[address] [facility] Ej Nair MD 07/16/2018 Office visit Alex Jaimie DO 07/09/2018 Office visit Ej Nair MD 05/14/2018 Office visit Alex Jaimie DO 02/05/2018 Office visit Alex Jaimie DO 01/22/2018 Office visit Alex Jaimie DO 10/30/2017 Office visit Alex Jaimie DO 09/18/2017 Hospital Ryan Moraes MD 09/04/2017 [facility] Ryan Moraes MD 08/16/2017 [facility] Ryan Moraes MD 08/01/2017 Office visit Alex Jaimie DO 07/06/2017 Office visit Alex Jaimie DO 06/28/2017 [facility] Cresencio Palomino MD 06/27/2017 Hospital Ryan Moraes MD 05/09/2017 Office visit Melonie Chu BORING MILL OPERATOR FOR METAL 02/03/2017 Office visit Alex Jaimie DO 01/02/2017 Office visit Alex Jaimie DO 11/30/2016 Office visit Alex Jaimie DO 11/25/2016 Hospital Ryan Moraes MD 11/14/2015 [facility] Ryan Moraes MD 09/14/2015 Office visit Alex Jaimie DO 08/25/2015 Office visit Alex Jaimie DO 06/16/2015 Office visit Alex Jaimie DO 12/08/2014 Office visit Alex Jaimie DO 11/24/2014 Office visit Alex Jaimie DO 11/07/2014 Office visit Alex Jaimie DO 10/08/2014 Office visit Alex Etienne DO 09/08/2014 Hospital Beatrice Robledo MD 09/05/2014 [facility] Jazmyne Alexandre MD 09/04/2014 [facility] Marilu Shipley MD 12/30/2013 Office visit Alex Etienne DO 11/27/2012 Office visit Alex Etienne DO 10/25/2012 Office visit Alex Etienne DO 10/23/2012 Office visit Melonie Chu BORING MILL OPERATOR FOR METAL 07/30/2012 Office visit Melonie Chu BORING MILL OPERATOR FOR METAL 07/16/2012 Office visit Melonie Chu BORING MILL OPERATOR FOR METAL 10/07/2011 Office visit Tre Palm MD 09/12/2011 Office visit Tre Palm MD 09/02/2011 Office visit Tre Palm MD 08/29/2011 Office visit Tre Palm MD 08/09/2011 Office visit Tre Palm MD 07/01/2011 Office visit Melonie Chu BORING MILL OPERATOR FOR METAL 03/24/2011 Office visit Tre Palm MD 03/14/2011 Office visit Tre Palm MD 07/07/2010 Office visit Tre Palm MD 04/20/2010 Office visit Tre Palm MD 10/12/2009 Office visit Laura Milton MD 09/02/2009 Office visit Aruna JAEGER 03/23/2009 Voided Cresencio Sanchez MD 03/17/2009 Office visit Cresencio Sanchez MD
--- OUTSIDE RECORDS SUMMARY | 2021-01-30 02:51 | XMS REPORT ---
Author Rangel Barnes Organization [facility] Physicians oup Address [address] [place] [id number] Care Team Providers Care Clothing And Textiles Teacher Name Role Phone Ej Nair PCP Alex [...] Reviewed 10/23/2012 12:00 AM Toradol 60 Mg [facility]#[id number] Reviewed 10/23/2012 12:00 AM THER/PROPH/DIAG INJ SC/IM [...] 12:00 AM Bicillen CR 1.2 Mu (Karin) [facility]# [id number] 07-05 Reviewed 10/08/2014 12:00 AM Physical Therapy [...] Date Medicare Part B Medicare Of [place] [id number] N/A Cigna Medicare Supplement Cigna Medicare Supplement [id number] N/A Aetna Better Health Aetna Better Health [id number] 3 N/A Medicare RHC Medicare RHC [id number] N/ A BCBS [facility] [id number] 1985 Medicare RHC Medicare RHC [id number] 2016 Medicare Part A Medicare - Lab/Xray [id number] N/A Medicare Part B Medicare Of [place] [id number] N/A History of Encounters Visit Date Visit Type Provider 01/18/2021 Procedures Ej Nair MD 11/25/2020 Procedures Ej Nair MD 11/17/2020 Office visit FARTUN MCCANN LIBRARY SCIENCE INSTRUCTOR 11/06/2020 [facility] Ryan Moraes MD 08/18/2020 Office visit FARTUN MCCANN LIBRARY SCIENCE INSTRUCTOR 07/13/2020 Office visit FARTUN MCCANN LIBRARY SCIENCE INSTRUCTOR 07/03/2020 Hospital Ryan Moraes MD 06/23/2020 Office visit FARTUN MCCANN LIBRARY SCIENCE INSTRUCTOR 06/17/2020 Laboratory Cindy VILLALPANDO RN 05/25/2020 Office visit Alex Etienne DO 05/14/2020 Office visit Alex Etienne DO 04/07/2020 Office visit Alex Etienne DO 01/22/2020 [facility] Rambo Lea MD 01/16/2020 [facility] Dez Sanderson MD 01/16/2020 [facility] FARTUN UyenIfrah MCCANN LIBRARY SCIENCE INSTRUCTOR 01/10/2020 Hospital Rambo Lea MD 01/09/2020 Office visit Cindy VILLALPANDO RN 01/03/2020 [facility] Renata Shepherd MD 01/02/2020 [facility] Ryan Moraes MD 01/02/2020 [facility] Renata Shepherd MD 12/30/2019 Office visit Cindy VILLALPANDO RN 07/10/2019 Office visit Melonie Chu LIBRARY SCIENCE INSTRUCTOR 05/09/2019 Office visit Alex Jaimie DO 03/18/2019 Office visit Melonie Chu LIBRARY SCIENCE INSTRUCTOR 01/29/2019 Office visit Alex Jaimie DO 11/06/2018 Office visit Alex Jaimie DO 10/18/2018 Office visit Alex Jaimie DO 09/14/2018 [facility] Ej Nair MD 07/16/2018 Office visit Alex Jaimie DO 07/09/2018 Office visit Ej Nair MD 05/14/2018 Office visit Alex Jaimie DO 02/05/2018 Office visit Alex Jaimie DO 01/22/2018 Office visit Alex Jaimie DO 10/30/2017 Office visit Alex Jaimie DO 09/18/2017 Hospital Ryan Moraes MD 09/04/2017 [facility] Ryan Moraes MD 08/16/2017 [facility] Ryan Moraes MD 08/01/2017 Office visit Alex Jaimie DO 07/06/2017 Office visit Alex Jaimie DO 06/28/2017 [facility] Cresencio Palomino MD 06/27/2017 Hospital Ryan Moraes MD 05/09/2017 Office visit Melonie Chu LIBRARY SCIENCE INSTRUCTOR 02/03/2017 Office visit Alex Jaimie DO 01/02/2017 Office visit Alex Jaimie DO 11/30/2016 Office visit Alex Jaimie DO 11/25/2016 Hospital Ryan Moraes MD 11/14/2015 [facility] Ryan Moraes MD 09/14/2015 Office visit Alex Jaimie DO 08/25/2015 Office visit Alex Jaimie DO 06/16/2015 Office visit Alex Jaimie DO 12/08/2014 Office visit Alex Jaimie DO 11/24/2014 Office visit Alex Jaimie DO 11/07/2014 Office visit Alex Jaimie DO 10/08/2014 Office visit Alex Etienne DO 09/08/2014 Hospital Beatrice Robledo MD 09/05/2014 [facility] Jazmyne Alexandre MD 09/04/2014 [facility] Marilu Shipley MD 12/30/2013 Office visit Alex Etienne DO 11/27/2012 Office visit Alex Etienne DO 10/25/2012 Office visit Alex Etienne DO 10/23/2012 Office visit Melonie Chu LIBRARY SCIENCE INSTRUCTOR 07/30/2012 Office visit Melonie Chu LIBRARY SCIENCE INSTRUCTOR 07/16/2012 Office visit Melonie Chu LIBRARY SCIENCE INSTRUCTOR 10/07/2011 Office visit Tre Palm MD 09/12/2011 Office visit Tre Palm MD 09/02/2011 Office visit Tre Palm MD 08/29/2011 Office visit Tre Palm MD 08/09/2011 Office visit Tre Palm MD 07/01/2011 Office visit Melonie Chu LIBRARY SCIENCE INSTRUCTOR 03/24/2011 Office visit Tre Palm MD 03/14/2011 Office visit Tre Palm MD 07/07/2010 Office visit Tre Palm MD 04/20/2010 Office visit Tre Palm MD 10/12/2009 Office visit Laura iMlton MD 09/02/2009 Office visit Aruna JAEGER 03/23/2009 Voided Cresencio Sanchez MD 03/17/2009 Office visit Cresencio Sanchez MD
--- OUTSIDE RECORDS SUMMARY | 2021-01-30 02:52 | XMS REPORT ---
Author Rangel Barnes Organization [facility] Physicians ou Address [address] [place] [id number] Care Team Providers Care Sanitary Engineering Teacher Name Role Phone Ej Nair PCP [...] W/MICRO C&S IF IND 11/17/2020 12:00 AM Medications Active Name Start Date [...] by oral route once daily not on assisted med list clindamycin HCl 150 mg oral [...] route once daily at bedtime not on assisted med list mupirocin 2 % topical ointment [...] 10/23/2012 12:00 AM Toradol 60 Mg [facility]#[id number] Reviewed 10/23/2012 12:00 AM THER/PROPH/DIAG INJ SC/IM [...] AM Bicillen CR 1.2 Mu (Karin) [facility]# [id number] 07-05 Reviewed 10/08/2014 12:00 AM Physical Therapy [...] 2:21PM Urine retention Jan 18 2021 2:58PM Payers Insurance Name Company Name Plan Name Plan Number Policy Number Errol cy Group Number Start Date Medicare Part B Medicare Of [place] [id number] N/A Cigna Medicare Supplement Cigna Medicare Supplement [id number] N/A Aetna Better Health Aetna Better Health [id number] 3 N/A Medicare RHC Medicare RHC [id number] N/ A BCBS [employer] [place] [id number] , 1985 Medicare RHC Medicare RHC [id number] Sa 2016 Medicare Part A Medicare - Lab/Xray [id number] N/A Medicare Part B Medicare Of [place] [id number] N/A History of Encounters Visit Date Visit Type Provider 01/18/2021 Procedures Ej Nair MD 11/25/2020 Procedures Ej Nair MD 11/17/2020 Office visit FARTUN MCCANN CARBURETOR EXPERT 11/06/2020 Hospital Ryan Moraes MD 08/18/2020 Office visit FARTUN MCCANN CARBURETOR EXPERT 07/13/2020 Office visit FARTUN MCCANN CARBURETOR EXPERT 07/03/2020 Hospital Ryan Moraes MD 06/23/2020 Office visit FARTUN MCCANN CARBURETOR EXPERT 06/17/2020 Laboratory Cindy VILLALPANDO RN 05/25/2020 Office visit Alex Etienne DO 05/14/2020 Office visit Alex Etienne DO 04/07/2020 Office visit Alex Etienne DO 01/22/2020 Hospital Rambo Lea MD 01/16/2020 Hospital Dez Sanderson MD 01/16/2020 Hospital FARTUN MCCANN CARBURETOR EXPERT 01/10/2020 [facility] Rambo Lea MD 01/09/2020 Office visit Cindy VILLALPANDO RN 01/03/2020 [facility] Renata Shepherd MD 01/02/2020 [facility] Ryan Moraes MD 01/02/2020 [facility] Renata Shepherd MD 12/30/2019 Office visit Cindy VILLALPANDO RN 07/10/2019 Office visit Melonie Vlad CARBURETOR EXPERT 05/09/2019 Office visit Alex Etienne DO 03/18/2019 Office visit Melonie Vlad CARBURETOR EXPERT 01/29/2019 Office visit Alex Jaimie DO 11/06/2018 Office visit Alex Jaimie DO 10/18/2018 Office visit Alex Jaimie DO 09/14/2018 Procedures Ej Nair MD 07/16/2018 Office visit Alex Jaimie DO 07/09/2018 Office visit Ej Nair MD 05/14/2018 Office visit Alex Jaimie DO 02/05/2018 Office visit Alex Jaimie DO 01/22/2018 Office visit Alex Jaimie DO 10/30/2017 Office visit Alex Jaimie DO 09/18/2017 [facility] Ryan Moraes MD 09/04/2017 [facility] Ryan Moraes MD 08/16/2017 [facility] Ryan Moraes MD 08/01/2017 Office visit Alex Jaimie DO 07/06/2017 Office visit Alex Jaimie DO 06/28/2017 [facility] Cresencio Palomino MD 06/27/2017 [facility] Ryan Moraes MD 05/09/2017 Office visit Melonie Chu CARBURETOR EXPERT 02/03/2017 Office visit Alex Jaimie DO 01/02/2017 Office visit Alex Jaimie DO 11/30/2016 Office visit Alex Jaimie DO 11/25/2016 [facility] Ryan Moraes MD 11/14/2015 [facility] Ryan Moraes MD 09/14/2015 Office visit Alex Jaimie DO 08/25/2015 Office visit Alex Jaimie DO 06/16/2015 Office visit Alex Jaimie DO 12/08/2014 Office visit Alex Jaimie DO 11/24/2014 Office visit Alex Jaimie DO 11/07/2014 Office visit Alex Jaimie DO 10/08/2014 Office visit Alex Jaimie DO 09/08/2014 [facility] Beatrice Robledo MD 09/05/2014 [facility] Jazmyne Alexandre MD 09/04/2014 [facility] Marilu Shipley MD 12/30/2013 Office visit Alex Jaimie DO 11/27/2012 Office visit Alex Jaimie DO 10/25/2012 Office visit Alex Etienne DO 10/23/2012 Office visit Melonie Chu CARBURETOR EXPERT 07/30/2012 Office visit Melonie Chu CARBURETOR EXPERT 07/16/2012 Office visit Melonie Chu CARBURETOR EXPERT 10/07/2011 Office visit Tre Palm MD 09/12/2011 Office visit Tre Palm MD 09/02/2011 Office visit Tre Palm MD 08/29/2011 Office visit Tre Palm MD 08/09/2011 Office visit Tre Palm MD 07/01/2011 Office visit Melonie Chu CARBURETOR EXPERT 03/24/2011 Office visit Tre Palm MD 03/14/2011 Office visit Tre Palm MD 07/07/2010 Office visit Tre Palm MD 04/20/2010 Office visit Tre Palm MD 10/12/2009 Office visit Laura Milton MD 09/02/2009 Office visit Aruna JAEGER 03/23/2009 Voided Cresencio Sanchez MD 03/17/2009 Office visit Cresencio Sanchez MD
--- OUTSIDE RECORDS SUMMARY | 2021-01-30 02:52 | XMS REPORT ---
Author Rangel Barnes Organization [facility] Physicians oup Address [address] [place] [id number] Care Team Providers Care Compliance Field Technician Name Role Phone Ej Nair PCP Alex [...] by oral route once daily not on custodial med list clindamycin HCl 150 mg oral [...] route once daily at bedtime not on custodial med list mupirocin 2 % topical ointment [...] 12:00 AM Toradol 60 Mg [facility]#[id number] Reviewed 10/23/2012 12:00 AM THER/PROPH/DIAG INJ SC/IM [...] CR 1.2 Mu (Karin) [facility]# [id number] Reviewed 10/08/2014 12:00 AM Physical Therapy Consultation [...] Date Medicare Part B Medicare Of [place] [id number] N/A Cigna Medicare Supplement Cigna Medicare Supplement [id number] N/A Aetna Better Health Aetna Better Health [id number] 3 N/A Medicare RHC Medicare RHC [id number] N/ A [id number] 1984 Medicare RHC Medicare RHC [id number] Sa 2016 Medicare Part A Medicare - Lab/Xray [id number] N/A Medicare Part B Medicare Of [place] [id number] N/A History of Encounters Visit Date Visit Type Provider 01/18/2021 Procedures Ej Nair MD 11/25/2020 Procedures Ej Nair MD 11/17/2020 Office visit FARTUN MCCANN WAITER/WAITRESS ECONOMY CLASS 11/06/2020 Hospital Ryan Moraes MD 08/18/2020 Office visit FARTUN MCCANN WAITER/WAITRESS ECONOMY CLASS 07/13/2020 Office visit FARTUN MCCANN WAITER/WAITRESS ECONOMY CLASS 07/03/2020 [facility] Ryan Moraes MD 06/23/2020 Office visit FARTUN MCCANN WAITER/WAITRESS ECONOMY CLASS 06/17/2020 Laboratory Cindy VILLALPANDO RN 05/25/2020 Office visit Alex Etienne DO 05/14/2020 Office visit Alex Etienne DO 04/07/2020 Office visit Alex Etienne DO 01/22/2020 [facility] Rambo Lea MD 01/16/2020 [facility] Dez Sanderson MD 01/16/2020 [facility] FARTUN MCCANN WAITER/WAITRESS ECONOMY CLASS 01/10/2020 [facility] Rambo Lea MD 01/09/2020 Office visit Cindy VILLALPANDO RN 01/03/2020 Hospital Renata Shepherd MD 01/02/2020 Hospital Ryan Moraes MD 01/02/2020 [facility] Renata Shepherd MD 12/30/2019 Office visit Cindy VILLALPANDO RN 07/10/2019 Office visit Melonie Chu WAITER/WAITRESS ECONOMY CLASS 05/09/2019 Office visit Alex Jaimie DO 03/18/2019 Office visit Melonie Chu WAITER/WAITRESS ECONOMY CLASS 01/29/2019 Office visit Alex Jaimie DO 11/06/2018 [facility] Cresenc[facility] Palomino MD 06/27/2017 [facility] Ryan Moraes MD 05/09/2017 Office visit Melonie Chu WAITER/WAITRESS ECONOMY CLASS 02/03/2017 Office visit Alex Jaimie DO 01/02/2017 [...] 10/08/2014 Office visit Alex Jaimie DO 09/08/2014 [facility] Beatrice Robledo MD 09/05/2014 [facility] Jazmyne Alexandre MD 09/04/2014 [facility] Marilu Shipley MD 12/30/2013 Office visit Alex Etienne DO 11/27/2012 Office visit Alex Etienne DO 10/25/2012 Office visit Alex Etienne DO 10/23/2012 Office visit Melonie Chu WAITER/WAITRESS ECONOMY CLASS 07/30/2012 Office visit Melonie Chu WAITER/WAITRESS ECONOMY CLASS 07/16/2012 Office visit Melonie Chu WAITER/WAITRESS ECONOMY CLASS 10/07/2011 Office visit Tre Palm MD 09/12/2011 Office visit Tre Palm MD 09/02/2011 Office visit Tre Palm MD 08/29/2011 Office visit Tre Palm MD 08/09/2011 Office visit Tre Palm MD 07/01/2011 Office visit Melonie Chu WAITER/WAITRESS ECONOMY CLASS 03/24/2011 Office visit Tre Palm MD 03/14/2011 Office visit Tre Palm MD 07/07/2010 Office visit Tre Palm MD 04/20/2010 Office visit Tre Palm MD 10/12/2009 Office visit Laura Milton MD 09/02/2009 Office visit Aruna JAEGER 03/23/2009 Voided Cresencio Sanchez MD 03/17/2009 Office visit Cresencio Sanchez MD
== END 2021-01-27 12:13 | disposition home or self-care (01) ==
LOC: ER 09:30 → EDUNIT# 09:30 → ER 12:13
DX: T83.028A Displacement of other urinary catheter, initial encounter (principal); T83.510A Infection and inflammatory reaction due to cystostomy catheter, initial encounter; N39.0 Urinary tract infection, site not specified; I48.91 Unspecified atrial fibrillation; F41.9 Anxiety disorder, unspecified; K21.9 Gastro-esophageal reflux disease without esophagitis; E11.9 Type 2 diabetes mellitus without complications; Z79.01 Long term (current) use of anticoagulants; Z79.899 Other long term (current) drug therapy; Z79.82 Long term (current) use of aspirin; Z79.4 Long term (current) use of insulin
CPT/HCPCS: 51702; 81000; 87088; 87106; 96372